=== PATIENT | female | born 1940 | race Caucasian/White ===

== ENCOUNTER 2018-06-23 15:24 | Inpatient (IN) | payer OTHER ==
[2018-06-23] MEDS ORDERED: PIPERACILLIN/TAZOB 4.5 GM 4.5 GM in DEXTROSE 5%-WATER 100 ML IVPB ONE (15:52)
[2018-06-23] MEDS ORDERED: SODIUM CHLORIDE 1,000 ML IV STA ×2 (15:52→16:43)
[2018-06-23] MEDS ORDERED: ACETAMINOPHEN 1000 MG/100 ML VIAL (NON FORMULARY) IVPB ONE (15:52)
[2018-06-23] MEDS ORDERED: VANCOMYCIN 1,000 MG in DEXTROSE 5%-WATER - 250 ML IVPB ONE (15:52)
[2018-06-23 16:22] LABS: BASO % 0.4 % (0-2.0); EOS % 0.1 % (0-4.5); HEMOGLOBIN 13.4 GM/dL (10.7-15.3); LYMPH % 12.5 % (8-40); MCH 30.1 pg (25.7-33.7); MEAN CELL VOLUME 94.1 fl (80-96); MEAN PLT VOLUME 12.7 fl (7.5-11.1); MONO % 2.4 % (3.8-10.2); NEUT % 84.6 % (42.8-82.8); PLATELET COUNT 96 K/MM3 (134-434); RBC 4.47 M/mm3 (3.60-5.2); RDW 16.4 % (11.6-15.6); WHITE BLOOD COUNT 29.5 K/mm3 (4.0-10.0)
--- NOTE | 2018-06-23 16:24 | PDOC ---
History of Present Illness - General Chief Complaint: Respiratory Distress Stated Complaint: Respiratory DISTRESS Time Seen by Provider: 06/23/18 15:50 - History of Present Illness Initial Comments: 77yo F with history of HTN, dementia, angina, previous UTIs and PNA presenting from [facility] with less responsiveness. Patient is nonverbal at baseline but has becoming progressively less responsive over the past three or four days. [facility] reports that the patient has had abnormal vitals with a fever, elevated RR, and elevated BP. Patient brought in by EMS. She is unable to provide any history. Family members are on their way. Past History - Past Medical History Allergies/Adverse Reactions: Allergies Allergy/AdvReac Type Severity Reaction Status Date / Time lisinopril [From Prinivil] Allergy Mild Hives Verified 06/23/18 15:59 Home Medications: Ambulatory Orders Clonazepam [Klonopin] 0.5 mg PO BID 07/24/12 Hydrochlorothiazide [Hctz] 50 mg PO DAILY 07/24/12 Metoprolol Succinate [Toprol XL] 50 mg PO DAILY 07/24/12 Ranolazine [Ranexa] 500 mg PO DAILY 07/24/12 Rosuvastatin Calcium [Crestor] 10 mg PO HS 07/24/12 Benztropine Mesylate [Cogentin] 2 mg PO BID 08/12/13 Tramadol HCl [Tramadol HCl ER] 100 mg PO TID 08/12/13 Cardiac Disorders: Yes (angia, prinzmetal disease,) COPD: No Diabetes: No HTN: Yes Hypercholesterolemia: Yes - Surgical History Cardiac Surgery: Yes Cholecystectomy: Yes - Immunization History Td Vaccination: Yes Immunization Up to Date: Yes - Suicide/Smoking/Psychosocial Hx Smoking Status: No Smoking History: Unknown if ever smoked Years of Tobacco Use: 20 Number of Cigarettes Smoked Daily: 0 If you are a former smoker, when did you quit?: 35 years ago Cigars Per Day: 0 Hx Alcohol Use: No Drug/Substance Use Hx: No Substance Use Type: None Review of Systems - Review of Systems Able to Perform ROS?: No *Physical Exam - Vital Signs Last Vital Signs Temp Pulse Resp BP Pulse Ox 104.7 F H 40 L 34 H 161/109 H 95 06/23/18 15:59 06/23/18 15:59 06/23/18 15:59 06/23/18 15:59 06/23/18 15:59 - Physical Exam Comments: General: Cachectic, non-responsive Head: No signs of trauma ENT: Dry mucus membranes Lungs: Tachypnic, labored breathing with use of accessory muscles Cardio: Regular rhythm, S1 and S2 present Abdomen: Soft, nondistended. Extremities: Distal pulses present SKIN: Skin tenting, pallor Moderate Sedation - Procedure Monitoring Vital Signs: Procedure Monitoring Vital Signs Temperature 104.7 F H 06/23/18 15:59 Pulse Rate 40 L 06/23/18 15:59 Respiratory Rate 34 H 06/23/18 15:59 Blood Pressure 161/109 H 06/23/18 15:59 O2 Sat by Pulse Oximetry (%) 95 06/23/18 15:59 ED Treatment Course - LABORATORY CBC & Chemistry Diagram: 06/24/18 05:15 06/24/18 05:15 - RADIOLOGY Radiology Studies Ordered: Category Date Time Status CHEST X-RAY PORTABLE* [RAD] Stat Radiology 06/23/18 15:51 Ordered - Medications Given in the ED: ED Medications Discontinued Medications Generic Name Dose Route Start Last Admin Trade Name Freq PRN Reason Stop Dose Admin Acetaminophen 1,000 mg 06/23/18 15:52 06/23/18 16:13 Ofirmev Injection - IVPB 06/23/18 15:53 1,000 mg ONCE ONE Administration Medical Decision Making - Medical Decision Making 77yo F with history of HTN, dementia, angina, previous UTIs and PNA presenting from [facility] with less responsiveness. -Septic workup, source likely UTI due to cloudy urine -Vanc/Zosyn to cover broadly -1g Ofirmev, 2L NS 06/23/18 16:23 Patient's son, Anoop Anne, is medical proxy and power of employee benefits attorney. Extensive EOL discussion with him and other family member at the bedside. Decision to make patient DNR/DNI EKG: rate 41, QTc 402, NSR, LAD, no ST d/e 06/23/18 16:44 Dr. Mariano spoke with ICU who will come evaluate the patient. Discussed case with [employer] Angela who accepted patient for admission under Dr. Wolfe. 06/23/18 17:27 *DC/Admit/Observation/Transfer Diagnosis at time of Disposition: Sepsis - Discharge Dispostion Condition at time of disposition: Guarded Decision to Admit order: Yes - Referrals - Patient Instructions - Post Discharge Activity
[2018-06-23] MEDS ORDERED: VANCOMYCIN 1 GRAM (PRE-DOCKED) 1,000 MG/250 ML BAG IVPB ONE (16:44)
[2018-06-23] MEDS ORDERED: PIPERACILLIN/TAZOB 3.375 GM 3.375 GM/50 ML BAG IVPB ONE (16:44)
[2018-06-23 16:57] LABS: ALBUMIN 3.4 g/dl (3.4-5.0); ALK PHOS 49 U/L (45-117); ANION GAP 18 MMOL/L (8-16); BILIRUBIN,TOTAL 1.6 mg/dL (0.2-1); CALCIUM 8.4 mg/dL (8.5-10.1); CHLORIDE 128 mmol/L (98-107); CO2 18 mmol/L (21-32); CREATININE 5.5 mg/dL (0.55-1.3); GLUCOSE,RANDOM 143 mg/dL (74-106); POTASSIUM 4.2 mmol/L (3.5-5.1); SGOT/AST 217 U/L (15-37); SGPT/ALT 109 U/L (13-61); TOT PROT 7.2 g/dl (6.4-8.2)
[2018-06-23 16:59] LABS: BLOOD UREA NITROGEN 113 mg/dL (7-18); SODIUM 164 mmol/L (136-145)
--- NOTE | 2018-06-23 17:38 | PDOC ---
Attending Attestation - Resident Resident Name: Nan Finley - ED Attending Attestation I have performed the following: I have examined & evaluated the patient, The case was reviewed & discussed with the resident, I agree w/resident's findings & plan, Exceptions are as noted - Critical Care Time Total Critical Care Time: 35 Critical Care Statement: The care of this patient involved high complexity decision making to prevent further life threatening deterioration of the patient 's condition and/or to evaluate & treat vital organ system(s) failure or risk of failure. - Medical Decision Making 06/23/18 17:38 A portion of this note was documented by scribe services under my direction. I have reviewed the details of the note, within reason, and agree with the documentation with the following case summary and management plan written by me. Patient treated in the ED. Nursing notes are reviewed and incorporated into the medical decision-making. Vital signs reviewed. Peripheral IV access obtained by the nurse, laboratory studies are drawn and sent, reviewed and interpreted by myself. Vital Signs Temp Pulse Resp BP Pulse Ox 104.7 F H 40 L 34 H 161/109 H 95 06/23/18 15:59 06/23/18 15:59 06/23/18 15:59 06/23/18 15:59 06/23/18 15:59 77-year-old female with past medical history Parkinson's disease, hypertension, hyperlipidemia, seizures, dementia, pneumonia, urinary tract infection, acid reflux, bedbound and nonverbal at baseline brought in by EMS for 105 degrees fever. The patient lives at [facility]. The family noted that in the last several days that she appeared more tired than usual. Noted today, that she was hypoxic to 78% and in respiratory distress with fever. Pt was seen by me immediately. Noted to have a fever and appeared toxic and ill. The pt's HR was in 40s, and pacer pads were placed on. Sepsis protocol initiated and empiric IV vanc and zosyn was ordered. I suspect the patient was having severe sepsis. Chest xray reviewed by me, pending official radiology read. Left sided infiltrate. CBC, BMP 06/23/18 16:10 06/23/18 16:10 CMP Sodium 164 mmol/L (136-145) H* 06/23/18 16:10 Potassium 4.2 mmol/L (3.5-5.1) 06/23/18 16:10 Chloride 128 mmol/L (98-107) H 06/23/18 16:10 Carbon Dioxide 18 mmol/L (21-32) L 06/23/18 16:10 Anion Gap 18 MMOL/L (8-16) H 06/23/18 16:10 BUN 113 mg/dL (7-18) H* 06/23/18 16:10 Creatinine 5.5 mg/dL (0.55-1.3) H 06/23/18 16:10 Creat Clearance w eGFR 7.54 (>60) 06/23/18 16:10 Random Glucose 143 mg/dL (74-106) H 06/23/18 16:10 Calcium 8.4 mg/dL (8.5-10.1) L 06/23/18 16:10 Total Bilirubin 1.6 mg/dL (0.2-1) H 06/23/18 16:10 AST 217 U/L (15-37) H 06/23/18 16:10 ALT 109 U/L (13-61) H 06/23/18 16:10 Alkaline Phosphatase 49 U/L (45-117) 06/23/18 16:10 Total Protein 7.2 g/dl (6.4-8.2) 06/23/18 16:10 Albumin 3.4 g/dl (3.4-5.0) 06/23/18 16:10 Urine Test Results Urine Color Rocio 06/23/18 17:55 Urine Appearance Slcloudy 06/23/18 17:55 Urine pH 5.0 (5.0-8.0) 06/23/18 17:55 Ur Specific [place] 1.021 (1.010-1.035) 06/23/18 17:55 Urine Protein 1+ (NEGATIVE) H 06/23/18 17:55 Urine Glucose (UA) Negative (NEGATIVE) 06/23/18 17:55 Urine Ketones Trace (NEGATIVE) H 06/23/18 17:55 Urine Blood Negative (NEGATIVE) 06/23/18 17:55 Urine Nitrite Negative (NEGATIVE) 06/23/18 17:55 Urine Bilirubin Negative (<2.0 mg/dL) 06/23/18 17:55 Ur Leukocyte Esterase Negative (NEGATIVE) 06/23/18 17:55 Pt given IV tylenol, IVF and vanc/zosyn and appears more comfortable. However, pt is with hypernatremia, acute renal failure, leukocytosis, and elevated AG. Pt's prognosis is guarded and discussed with pt's son who is HCP (Anoop) who wants patient to be DNR/DNI and no heoric measures. Case discussed with ICU. Pt admitted to [facility]. <Mathew Mariano - Last Filed: 06/23/18 18:54> - HPI HPI: 06/23/18 18:49 The patient is a 77 year old female with a past medical history of parkinsons, HTN, HLD, seizures, depressive disorder, GERD, UTIs, prior pneumonias, and dementia who presents to the emergency department [facility] from [facility] for respiratory distress. As per EMS, patient was not responsive on scene and diaphoretic with an spo2 of 84% on 2 liters of oxygen. As per EMS, patient had a fever with tmax of 105 and was given suppository Tylenol around 11am today. Unable to obtain full history due to current clinical condition. 06/23/18 23:06 Health Care Proxy (Son)- Anoop phone # ([phone]) Alternate phone- ([phone]) - Physicial Exam PE: GENERAL: (+)Ill appearing. HEAD: No signs of trauma EYES: PERRLA, EOMI, sclera anicteric, conjunctiva clear ENT: (+)Dry mucous membranes Auricles normal inspection, hearing grossly normal, nares patent, oropharynx clear without exudates. NECK: Normal ROM, supple, no lymphadenopathy, JVD, or masses LUNGS: (+)tachypnic. Diminished breath sounds at bases. HEART: Regular rate and rhythm, normal S1 and S2, no murmurs, rubs or gallops ABDOMEN: Soft, nontender, normoactive bowel sounds. No guarding, no rebound. No masses EXTREMITIES: Normal range of motion, no edema. No clubbing or cyanosis. No cords, erythema, or tenderness NEUROLOGICAL: (+)Non verbal. SKIN: Warm, Dry, normal turgor, no rashes or lesions noted. <Lauren Kang - Last Filed: 06/23/18 23:07> Heart Score/ECG Review #1 ECG reviewed & interpreted by me at: 15:40 06/23/18 17:48 NSR 41, left axis deviation, premature PACS, no std/elvin, RBBB, T wave abnormality, consider lateral ischemia, QTC 402 msec <Mathew Mariano - Last Filed: 06/23/18 18:54> Attestations - Attestations Documentation prepared by Lauren Kang, acting as medical hospital sales for Mathew Mariano MD. <Lauren Kang - Last Filed: 06/23/18 23:07>
[2018-06-23 18:43] LABS: URINE APPEARANCE SLCLOUDY; URINE BILIRUBIN NEGATIVE (<2.0 mg/dL); URINE COLOR AMBER; URINE GLUCOSE (UA) NEGATIVE (NEGATIVE); URINE KETONE TRACE (NEGATIVE); URINE LEUK ESTERASE NEGATIVE (NEGATIVE); URINE NITRITE NEGATIVE (NEGATIVE); URINE PROTEIN 1+ (NEGATIVE)
[2018-06-23 18:58] LABS: EPI CELLS RARE /HPF (FEW); URINE BACTERIA RARE /hpf (NONE SEEN); URINE HYALINE CAST 1 /lpf; URINE MUCUS RARE; YEAST MODERATE
[2018-06-23] MEDS ORDERED: DEXTROSE 5%-WATER - 1,000 ML IV SCH ×2 (19:15→20:26)
[2018-06-23] MEDS ORDERED: SODIUM CHLORIDE 1,000 ML IV SCH (19:30)
[2018-06-23 20:05] LABS: INR 1.28 (0.83-1.09); PROTHROMBIN TIME (PATIENT) 15.1 SEC (9.7-13.0)
--- NOTE | 2018-06-23 20:06 | CONSULT ---
Consultation: Consult Service: Pulm/CCM CC: Fever and respiratory distress HPI: 77 yo fci F bedbound non-verbal h/o Parkinson's disease, HTN, HLD , seizure, UTI, PNA, dementia BIBEMS from [facility] for fever and tachypnea. Per son at bedside who last saw her last Saturday and she appeared lethargic, fatigued and minimally interactive, which was different from her baseline. At [facility], she was severely hypoxic to 78% and fever of 105 F. On arrival to ED, she's unresponsive and saturating at 82% on 2L NC. She was received 2L NS boluses and still hypotensive. PMH: As above Family History: Non-contributory Social History: Non-contributory Allergies: Lisinopril Home Medications: Clonazepam [Klonopin] 0.5 mg PO BID 07/24/12 Hydrochlorothiazide [Hctz] 50 mg PO DAILY 07/24/12 Metoprolol Succinate [Toprol XL] 50 mg PO DAILY 07/24/12 Ranolazine [Ranexa] 500 mg PO DAILY 07/24/12 Rosuvastatin Calcium [Crestor] 10 mg PO HS 07/24/12 Benztropine Mesylate [Cogentin] 2 mg PO BID 08/12/13 Tramadol HCl [Tramadol HCl ER] 100 mg PO TID 08/12/13 Review of Systems: Unable to obtain due to mental status Physical Examination Temp Pulse Resp BP Pulse Ox 101.3 F H 66 22 H 79/51 L 96 06/23/18 18:46 06/23/18 18:46 06/23/18 18:46 06/23/18 18:46 06/23/18 18:46 General: In severe distress, contracted, non-verbal, thin appearance. Cardiovascular: irregularly irregular, S1 and S2 normal, no m/g/r. Pulses 2+ equal on both sides. Lungs: Diffusely decreased breath sounds bilateral. No crackles/rhonchi/ wheezes. Abdomen: Normoactive bowel sounds. Grimaces upon deep palpations in all quadrants Extremeties: No bilateral cyanosis, clubbing or edema. CBCD WBC 29.5 K/mm3 (4.0-10.0) H 06/23/18 16:10 RBC 4.47 M/mm3 (3.60-5.2) 06/23/18 16:10 Hgb 13.4 GM/dL (10.7-15.3) 06/23/18 16:10 Hct 42.0 % (32.4-45.2) 06/23/18 16:10 MCV 94.1 fl (80-96) 06/23/18 16:10 MCHC 32.0 g/dl (32.0-36.0) 06/23/18 16:10 RDW 16.4 % (11.6-15.6) H 06/23/18 16:10 Plt Count 96 K/MM3 (134-434) L D 06/23/18 16:10 MPV 12.7 fl (7.5-11.1) H D 06/23/18 16:10 CMP Sodium 164 mmol/L (136-145) H* 06/23/18 16:10 Potassium 4.2 mmol/L (3.5-5.1) 06/23/18 16:10 Chloride 128 mmol/L (98-107) H 06/23/18 16:10 Carbon Dioxide 18 mmol/L (21-32) L 06/23/18 16:10 Anion Gap 18 MMOL/L (8-16) H 06/23/18 16:10 BUN 113 mg/dL (7-18) H* 06/23/18 16:10 Creatinine 5.5 mg/dL (0.55-1.3) H 06/23/18 16:10 Creat Clearance w eGFR 7.54 (>60) 06/23/18 16:10 Calcium 8.4 mg/dL (8.5-10.1) L 06/23/18 16:10 Total Bilirubin 1.6 mg/dL (0.2-1) H 06/23/18 16:10 AST 217 U/L (15-37) H 06/23/18 16:10 ALT 109 U/L (13-61) H 06/23/18 16:10 Alkaline Phosphatase 49 U/L (45-117) 06/23/18 16:10 Total Protein 7.2 g/dl (6.4-8.2) 06/23/18 16:10 Albumin 3.4 g/dl (3.4-5.0) 06/23/18 16:10 Urine Test Results Urine Color Rocio 06/23/18 17:55 Urine Appearance Slcloudy 06/23/18 17:55 Urine pH 5.0 (5.0-8.0) 06/23/18 17:55 Ur Specific [place] 1.021 (1.010-1.035) 06/23/18 17:55 Urine Protein 1+ (NEGATIVE) H 06/23/18 17:55 Urine Glucose (UA) Negative (NEGATIVE) 06/23/18 17:55 Urine Ketones Trace (NEGATIVE) H 06/23/18 17:55 Urine Blood Negative (NEGATIVE) 06/23/18 17:55 Urine Nitrite Negative (NEGATIVE) 06/23/18 17:55 Urine Bilirubin Negative (<2.0 mg/dL) 06/23/18 17:55 Ur Leukocyte Esterase Negative (NEGATIVE) 06/23/18 17:55 Ur Epithelial Cells Rare /HPF (FEW) 06/23/18 17:55 Urine Bacteria Rare /hpf (NONE SEEN) 06/23/18 17:55 Urine Mucus Rare 06/23/18 17:55 Imaging: CXR: cannot r/o infiltrates EKG: NSR 40bp RBBB, PACS, QTc 402 A/P: 77 yo F admitted to ICU for septic shock. ID Septic shock: 1. admit to ICU; adequate initial fluid resus. (2L NS), will switch the fluid to D5W due to hypernatremia; trend lactate 2. locate infectious source; ua unremarkable, suspecting aspiration PNA due to underlying parkinson's, will obtain cultures and CT chest/abd/pel 3. Abx; Vanc+zosyn in ED, cont. such regiment for now 4. Vasopressor support; IJ triple lumen 06/23 + levophed, ABG to assess acid- base CV Elevated troponin 1. Likely demand ischemia; trend trops, repeat EKG Renal Hypernatremia 1. likely hypodipsia from sepsis/poor mentation 2. Free water deficit 4.2L, avoid hypertonic fluid; (levophed in) D5W at 70cc/hr Prophylaxis: 1. SCDs Diet: 1. NPO for now Code status: DNR/DNI References: [facility] investigators and the [facility] Clinical trials group. Goal directed resuscitation for patients with early septic shock. [facility] 2014. [id number] Collin Batista MD PGY3 Visit type - Emergency Visit Emergency Visit: Yes ED Registration Date: 06/23/18 Care time: The patient presented to the Emergency Department on the above date and was hospitalized for further evaluation of their emergent condition. - New Patient This patient is new to me today: Yes Date on this admission: 06/24/18 - Critical Care Critical Care patient: Yes Total Critical Care Time (in minutes): 40 Critical Care Statement: The care of this patient involved high complexity decision making to prevent further life threatening deterioration of the patient 's condition and/or to evaluate & treat vital organ system(s) failure or risk of failure.
[2018-06-23 20:07] LABS: ACTIVATED PTT 21.9 SECONDS (25.2-36.5)
--- NOTE | 2018-06-23 20:29 | HP ---
CHIEF COMPLAINT: Respiratory distress PCP: Dr. Kennedy Fuller Harness Cleaner: Dr. Walker HISTORY OF PRESENT ILLNESS: 77 year old female with a PMH significant for Parkinson's disease, HTN, HLD presented to the ED from [facility] in respiratory distress and decreased responsiveness. Patient is non-verbal and immobile at baseline. Son Anoop provided history. long term staff reports that patient has been more lethargic over the past several days had had elevated temperature at the long term. Patient was started on IV antibiotics a few days ago. Today, patient was hypoxic (EMS measured spo2 of 84% on 2L). Upon admission to the ED, she was found to have a fever of 104.7, BP of 80/50, R 34. Labs notable for WBC of 29.5, BUN/Cr 113/5.5, Na 164, AST/ALT 217/109, UA +WBC, and CXR with possible infiltrates. She was given a dose of Vancomycin and Zosyn, IV apap, 3L NS. Temperature went down to 101.3, spo2 96% on non- rebreather. Patient has been admitted to ICU, patient is DNI/DNR. Patient's son wants goal of care to be comfort and not try any "heroic" measures. Recent Travel: No PAST MEDICAL HISTORY: Parkinson's disease HTN HLD Dementia PAST SURGICAL HISTORY: Hip replacement Social History: Smoking: Former, quit 35 years ago Alcohol: Rarely Drugs: Denies Family History: Mother: Cardiac problems, dementia Father: CVA, emphysema Brother: Cardiac problems, cancer, DM Brother: A-fib, hypothyroidism Allergies lisinopril [From Prinivil] Allergy (Mild, Verified 06/23/18 15:59) Hives HOME MEDICATIONS: Home Medications Medication Instructions Recorded Clonazepam [Klonopin] 0.5 mg PO BID 07/24/12 Hydrochlorothiazide [Hctz] 50 mg PO DAILY 07/24/12 Metoprolol Succinate [Toprol XL] 50 mg PO DAILY 07/24/12 Ranolazine [Ranexa] 500 mg PO DAILY 07/24/12 Rosuvastatin Calcium [Crestor] 10 mg PO HS 07/24/12 Benztropine Mesylate [Cogentin] 2 mg PO BID 08/12/13 Tramadol HCl [Tramadol HCl ER] 100 mg PO TID 08/12/13 REVIEW OF SYSTEMS CONSTITUTIONAL: (+) generalized weakness, malaise, loss of appetite, Lost approximately 20-45 lbs in the past year Absent: fever, chills, diaphoresis, , HEENT: Absent: rhinorrhea, nasal congestion, throat pain, throat swelling, difficulty swallowing, mouth swelling, ear pain, eye pain, visual changes CARDIOVASCULAR: Absent: chest pain, syncope, palpitations, irregular heart rate, lightheadedness , peripheral edema RESPIRATORY: (+) shortness of breath, wheezing Absent: cough, dyspnea with exertion, orthopnea, stridor, hemoptysis GASTROINTESTINAL: Absent: abdominal pain, abdominal distension, nausea, vomiting, diarrhea, constipation, melena, hematochezia GENITOURINARY: Absent: dysuria, frequency, urgency, hesitancy, hematuria, flank pain, genital pain MUSCULOSKELETAL: (+) Contracture left hand Absent: myalgia, arthralgia, joint swelling, back pain, neck pain SKIN: Absent: rash, itching, pallor HEMATOLOGIC/IMMUNOLOGIC: Absent: easy bleeding, easy bruising, lymphadenopathy, frequent infections ENDOCRINE: Absent: unexplained weight gain, unexplained weight loss, heat intolerance, cold intolerance NEUROLOGIC: Absent: headache, focal weakness or paresthesias, dizziness, unsteady gait, seizure, mental status changes, bladder or bowel incontinence PSYCHIATRIC: (+) anxiety Absent: depression, suicidal or homicidal ideation, hallucinations. PHYSICAL EXAMINATION Vital Signs - 24 hr 06/23/18 06/23/18 06/23/18 15:45 15:59 16:30 Temperature 104.7 F H Pulse Rate 40 L Pulse Rate [ 70 Apical] Respiratory 34 H 20 Rate Blood Pressure 161/109 H Blood Pressure 80/50 L [Left Arm] O2 Sat by Pulse 99 95 99 Oximetry (%) 06/23/18 06/23/18 06/23/18 17:00 17:45 18:46 Temperature 101.3 F H Pulse Rate Pulse Rate [ 78 74 66 Apical] Respiratory 18 20 22 H Rate Blood Pressure Blood Pressure 78/45 L 82/53 L 79/51 L [Left Arm] O2 Sat by Pulse 99 99 96 Oximetry (%) GENERAL: Elderly, frail, thin, agonal breathing, unable to participate in exam HEAD: Normal with no signs of trauma. EYES: Pupils equal, round and reactive to light EARS, NOSE, THROAT: Moist mucous membranes. NECK: Normal range of motion, supple without lymphadenopathy, JVD, or masses. LUNGS: Agonal breath sounds, tachypnic, use of accesory muscles HEART: Regular rate and rhythm, normal S1 and S2 without murmur, rub or gallop. ABDOMEN: Soft, nontender, not distended, normoactive bowel sounds, no guarding, no rebound, no masses. No hepatomegaly or splenomegaly. MUSCULOSKELETAL: Normal range of motion at all joints. No bony deformities or tenderness. No CVA tenderness. UPPER EXTREMITIES: 2+ pulses, warm, well-perfused. No cyanosis. No clubbing. No peripheral edema. LOWER EXTREMITIES: Scattered purpura left anterior villavicencio, 2+ pulses, warm, well- perfused. No calf tenderness. No peripheral edema. SKIN: Warm, dry, normal turgor, no rashes or lesions noted, normal capillary refill. Laboratory Results - last 24 hr 06/23/18 06/23/18 06/23/18 16:10 16:10 17:55 WBC 29.5 H RBC 4.47 Hgb 13.4 Hct 42.0 MCV 94.1 MCH 30.1 MCHC 32.0 RDW 16.4 H Plt Count 96 L D MPV 12.7 H D Absolute Neuts (auto) 25.0 H Neutrophils % 84.6 H Lymphocytes % 12.5 Monocytes % 2.4 L Eosinophils % 0.1 D Basophils % 0.4 Nucleated RBC % 0 PT with INR INR PTT (Actin FS) Sodium 164 H* Potassium 4.2 Chloride 128 H Carbon Dioxide 18 L Anion Gap 18 H BUN 113 H* Creatinine 5.5 H Creat Clearance w eGFR 7.54 Random Glucose 143 H Calcium 8.4 L Total Bilirubin 1.6 H AST 217 H ALT 109 H Alkaline Phosphatase 49 Total Protein 7.2 Albumin 3.4 Urine Color Rocio Urine Appearance Slcloudy Urine pH 5.0 Ur Specific [place] 1.021 Urine Protein 1+ H Urine Glucose (UA) Negative Urine Ketones Trace H Urine Blood Negative Urine Nitrite Negative Urine Bilirubin Negative Urine Urobilinogen 2.0 H Ur Leukocyte Esterase Negative Urine WBC (Auto) 11 Urine RBC (Auto) 4 Ur Epithelial Cells Rare Urine Bacteria Rare Hyaline Casts 1 Urine Mucus Rare Urine Yeast Moderate 06/23/18 19:00 WBC RBC Hgb Hct MCV MCH MCHC RDW Plt Count MPV Absolute Neuts (auto) Neutrophils % Lymphocytes % Monocytes % Eosinophils % Basophils % Nucleated RBC % PT with INR 15.10 H INR 1.28 H PTT (Actin FS) 21.9 L Sodium Potassium Chloride Carbon Dioxide Anion Gap BUN Creatinine Creat Clearance w eGFR Random Glucose Calcium Total Bilirubin AST ALT Alkaline Phosphatase Total Protein Albumin Urine Color Urine Appearance Urine pH Ur Specific [place] Urine Protein Urine Glucose (UA) Urine Ketones Urine Blood Urine Nitrite Urine Bilirubin Urine Urobilinogen Ur Leukocyte Esterase Urine WBC (Auto) Urine RBC (Auto) Ur Epithelial Cells Urine Bacteria Hyaline Casts Urine Mucus Urine Yeast ASSESSMENT/PLAN: 77 year old female with a PMH significant for Parkinson's disease, HTN, HLD presented to the ED from [facility] in respiratory distress. In the ED, she was found to have a fever of 104.7, WBC of 29.5, UA +WBC, and CXR with possible infiltrates. She was admitted to the ICU for treatment of sepsis. Sepsis secondary to possible PNA and or UTI - Cloudy urine UA + 11 WBC - CXR shows compressive atelectasis in LLL and minimal atelectatic changes i nRLL, cannot r/o superimposed infiltrates - WBC 29.5, T 104.7 - Given dose of Vancomycin and Zosyn in ED - Will give Zosyn renally dosed at 2.55 G until seen by ID - Lactic acid pending - Blood and urine cultures pending - ID consult ordered - Patient is DNR/DNI, healthcare proxy, son Anoop does not want any invasive interventions. Transaminitis - AST/ALT 217/109 - Hold statin - Monitor CMP Hypernatremia - Na 164 - IV fluids: D5 1/2 NS - Monitor BMP - Nephrology consult ordered Parkinson's disease - Continue Cogentin 2 mg PO BID - Neurologist Dr. Shelton DIXON - BUN/Cr 113/5.5 - IV fluids - Monitor BMP - Avoid nephrotoxic agents - Nephrology consult ordered HTN - Currently hypotensive - Hold home Metoprolol Succintate and HCTZ - Monitor BP HLD - Hold home Rosuvastatin d/t elevated LFTs Anxiety - Continue home Klonopin 0.5 mg PO BID FEN - D5 1/2 NS @100 cc/hr - Replete as needed - NPO until evaluated by ST to r/o dysphagia Disp: Patient requires further inpatient monitoring. DNR/DNI Visit type - Emergency Visit Emergency Visit: Yes ED Registration Date: 06/23/18 Care time: The patient presented to the Emergency Department on the above date and was hospitalized for further evaluation of their emergent condition. - New Patient This patient is new to me today: Yes Date on this admission: 06/23/18 - Critical Care Critical Care patient: Yes Total Critical Care Time (in minutes): 40 Critical Care Statement: The care of this patient involved high complexity decision making to prevent further life threatening deterioration of the patient 's condition and/or to evaluate & treat vital organ system(s) failure or risk of failure.
--- NOTE | 2018-06-23 21:08 | PDOC ---
*Physical Exam - Vital Signs Last Vital Signs Temp Pulse Resp BP Pulse Ox 101.3 F H 66 22 H 79/51 L 96 06/23/18 18:46 06/23/18 18:46 06/23/18 20:57 06/23/18 18:46 06/23/18 20:57 - Physical Exam Comments: 06/24/18 00:50 General Appearance: Nourished. In Apparent Distress HEENT: No Pharyngeal Erythema, Tonsillar Exudate, Tonsillar Erythema Neck: No Cervical Lymphadenopathy Respiratory/Chest: Lungs Clear, Normal Breath Sounds. No Crackles, Rales, Rhonchi, Wheezing Cardiovascular: Bradycardic Rate. No Murmur, Gallops, Rubs Gastrointestinal/Abdominal: Normal Bowel Sounds, Soft. No Guarding, Rebound, Tenderness Musculoskeletal: No CVA Tenderness Extremity: Normal Capillary Refill Integumentary: Normal Color, Dry, Warm Neurologic: Minimally responsive on exam. ED Treatment Course - LABORATORY CBC & Chemistry Diagram: 06/23/18 16:10 06/23/18 19:00 - ADDITIONAL ORDERS Additional order review: Laboratory Results 06/23/18 16:10 Sodium 164 H* Potassium 4.2 Chloride 128 H Carbon Dioxide 18 L Anion Gap 18 H BUN 113 H* Creatinine 5.5 H Creat Clearance w eGFR 7.54 Random Glucose 143 H Calcium 8.4 L Total Bilirubin 1.6 H AST 217 H ALT 109 H Alkaline Phosphatase 49 Total Protein 7.2 Albumin 3.4 06/23/18 16:10 RBC 4.47 MCV 94.1 MCHC 32.0 RDW 16.4 H MPV 12.7 H D Neutrophils % 84.6 H Lymphocytes % 12.5 Monocytes % 2.4 L Eosinophils % 0.1 D Basophils % 0.4 - Medications Given in the ED: ED Medications Discontinued Medications Generic Name Dose Route Start Last Admin Trade Name Freq PRN Reason Stop Dose Admin Acetaminophen 1,000 mg 06/23/18 15:52 06/23/18 16:13 Ofirmev Injection - IVPB 06/23/18 15:53 1,000 mg ONCE ONE Administration Sodium Chloride 1,000 mls @ 1,000 mls/hr 06/23/18 15:52 06/23/18 16:12 Normal Saline - IV 06/23/18 16:51 1,000 mls/hr ASDIR STA Administration Vancomycin HCl 1,000 mg/ 250 mls @ 166.667 mls/hr 06/23/18 15:52 06/23/18 16: 52 Dextrose IVPB 06/23/18 17:21 166.667 mls/hr ONCE ONE Administration Protocol Piperacillin Sod/Tazobactam 100 mls @ 200 mls/hr 06/23/18 15:52 06/23/18 16: 10 Sod 4.5 gm/ Dextrose IVPB 06/23/18 16:21 200 mls/hr ONCE ONE Administration Protocol Sodium Chloride 1,000 mls @ 1,000 mls/hr 06/23/18 16:43 06/23/18 17:52 Normal Saline - IV 06/23/18 17:42 1,000 mls/hr ASDIR STA Administration Dextrose 1,000 mls @ 83 mls/hr 06/23/18 19:15 06/23/18 19:42 D5w - IV 83 mls/hr ASDIR [facility] Administration Progress Note - Progress Note Progress Note: The patient is a 77 year old female with a complex medical history who presents for hypotension and altered mental status. The patient has an elevated wbc on lab results and is likely septic from an unknown source. The patient's HCP has opted to make the patient DNR/DNI. The patient is admitted to the ICU. Medical Decision Making - Medical Decision Making 06/24/18 00:53 The patient continues to remain hypotensive and bradycardic despite fluid resuscitation. We had a discussion the patient's HCP who has opted for central line placement and pressor use. We placed a right internal jugular central line successfully and have started the patient and a levophed drip with improvement in the patient's blood pressure. We will continue to closely monitor and reassess while here in the ED. *DC/Admit/Observation/Transfer Diagnosis at time of Disposition: Sepsis - Discharge Dispostion Condition at time of disposition: Guarded - Referrals - Patient Instructions - Post Discharge Activity Procedures - Central Line Central Line Lumen: triple Central Line Position: internal jugular (R) Anesthesia: 1% Lidocaine Amount of anesthesia (ccs): 3 Complications: none Post Central Line Insertion: sutured, good blood return, position confirmed w/ CXR
[2018-06-23 21:13] LABS: ANISOCYTOSIS 2+; MACROCYTOSIS 0; OVALOCYTE 1+; PLATELET ESTIMATE DECREASED; TEAR DROP CELLS 1+
[2018-06-23] MEDS ORDERED: NOREPINEPHRINE BITARTRATE 4 MG/4 ML ML IV ONE (21:44)
[2018-06-23] MEDS: PIPERACILLIN/TAZOB 2.25 GM 2.25 GM in DEXTROSE 5%-WATER - 50 ML IVPB SCH (22:00)
[2018-06-23] MEDS: NOREPINEPHRINE BITARTRATE 4,000 MCG in DEXTROSE 5%-WATER - 496 ML IV SCH (22:33)
[2018-06-23 23:16] LABS: ANION GAP 13 MMOL/L (8-16); CALCIUM 7.4 mg/dL (8.5-10.1); CHLORIDE 129 mmol/L (98-107); CO2 19 mmol/L (21-32); GLUCOSE,RANDOM 167 mg/dL (74-106); POTASSIUM 4.2 mmol/L (3.5-5.1)
[2018-06-23 23:20] LABS: BLOOD UREA NITROGEN 108 mg/dL (7-18); SODIUM 162 mmol/L (136-145)
[2018-06-24 00:53] VITALS: BMI 20.9
[2018-06-24] MEDS: HEPARIN NA (PORCINE) 5,000 UNITS/ML 1ML VIAL SQ SCH ×3 (00:57→21:36)
[2018-06-24] MEDS: BENZTROPINE MESYLATE 2 MG TABLET PO SCH ×3 (00:57→23:25)
[2018-06-24] MEDS: MUPIROCIN 2% TOPICAL OINTMENT FOR DECOLONIZATION NS SCH ×3 (00:57→21:36)
[2018-06-24] MEDS: clonazePAM 0.5 MG TABLET PO SCH ×3 (00:59→21:45)
[2018-06-24] MEDS: traMADol HCL 50 MG TABLET PO SCH ×4 (01:00→21:37)
[2018-06-24] MEDS: CHLORHEXIDINE GLUCONATE 4% CLEANSER FOR DECOLONIZATION TP SCH ×2 (01:00→21:45)
[2018-06-24] MEDS: RANOLAZINE E.R. 500 MG TABLET (FP) PO SCH ×3 (01:00→21:36)
[2018-06-24 02:25] LABS: ANION GAP 10 MMOL/L (8-16); CALCIUM 7.2 mg/dL (8.5-10.1); CHLORIDE 128 mmol/L (98-107); CO2 22 mmol/L (21-32); CREATININE 4.9 mg/dL (0.55-1.3); GLUCOSE,RANDOM 157 mg/dL (74-106); POTASSIUM 3.7 mmol/L (3.5-5.1); SODIUM 160 mmol/L (136-145)
[2018-06-24 02:28] LABS: BLOOD UREA NITROGEN 110 mg/dL (7-18)
[2018-06-24] MEDS: PIPERACILLIN/TAZOB 2.25 GM 2.25 GM in DEXTROSE 5%-WATER - 50 ML IVPB SCH ×2 (04:00→09:46)
[2018-06-24] MEDS ORDERED: PIPERACILLIN/TAZOBACTAM 2.25 GM VIAL IVPB ONE ×2 (04:43→09:20)
[2018-06-24] MEDS ORDERED: DEXTROSE 5%-WATER - 50 ML IVPB ONE ×2 (04:43→09:20)
[2018-06-24] MEDS ORDERED: NOREPINEPHRINE BITARTRATE 4 MG/4 ML ML IV ONE ×2 (05:38→13:36)
[2018-06-24 06:21] LABS: HEMATOCRIT 40.2 % (32.4-45.2); HEMOGLOBIN 12.5 GM/dL (10.7-15.3); MCH 29.1 pg (25.7-33.7); MCHC 31.1 g/dl (32.0-36.0); MEAN CELL VOLUME 93.6 fl (80-96); MEAN PLT VOLUME 12.7 fl (7.5-11.1); PLATELET COUNT 73 K/MM3 (134-434); RDW 15.3 % (11.6-15.6); WHITE BLOOD COUNT 24.3 K/mm3 (4.0-10.0)
[2018-06-24 07:24] LABS: ALBUMIN 2.8 g/dl (3.4-5.0); ALK PHOS 55 U/L (45-117); ANION GAP 9 MMOL/L (8-16); CALCIUM 7.2 mg/dL (8.5-10.1); CHLORIDE 126 mmol/L (98-107); CO2 22 mmol/L (21-32); GLUCOSE,RANDOM 145 mg/dL (74-106); POTASSIUM 3.9 mmol/L (3.5-5.1); SGOT/AST 437 U/L (15-37); SGPT/ALT 124 U/L (13-61); SODIUM 157 mmol/L (136-145); TOT PROT 6.1 g/dl (6.4-8.2)
[2018-06-24 09:18] LABS: BLOOD UREA NITROGEN 115 mg/dL (7-18)
--- NOTE | 2018-06-24 09:26 | PN ---
Progress Note, Physician - Current Medication List Current Medications: Active Medications Benztropine Mesylate (Cogentin -) 2 mg PO BID [facility] Last Admin: 06/24/18 00:57 Dose: Not Given Chlorhexidine Gluconate (Hibiclens For Decolonization -) 1 applic TP HS [facility] Last Admin: 06/24/18 01:00 Dose: Not Given Clonazepam (Klonopin -) 0.5 mg PO BID [facility] Last Admin: 06/24/18 00:59 Dose: Not Given Heparin Sodium (Porcine) (Heparin -) 5,000 unit SQ BID [facility] Last Admin: 06/24/18 00:57 Dose: Not Given Dextrose (D5w -) 1,000 mls @ 100 mls/hr IV ASDIR [facility] Last Admin: 06/23/18 20:35 Dose: 100 mls/hr Piperacillin Sod/Tazobactam (Sod 2.25 gm/ Dextrose) 50 mls @ 100 mls/hr IVPB Q6H-IV [facility]; Protocol Piperacillin Sod/Tazobactam (Sod 2.25 gm/ Dextrose) 50 mls @ 100 mls/hr IVPB Q6H [facility] Stop: 06/24/18 10:29 Last Admin: 06/24/18 04:00 Dose: 100 mls/hr Norepinephrine Bitartrate 4, (000 mcg/ Dextrose) 500 mls @ 37.5 mls/hr IV TITR [facility]; Protocol Last Titration: 06/24/18 00:00 Dose: 10 mcg/min, 75 mls/hr Mupirocin (Bactroban Ointment (For Decolonization) -) 1 applic NS BID [facility] Stop: 06/28/18 21:59 Last Admin: 06/24/18 00:57 Dose: Not Given Ranolazine (Ranexa -) 500 mg PO BID [facility] Last Admin: 06/24/18 01:00 Dose: Not Given Tramadol HCl (Ultram -) 100 mg PO TID [facility] Last Admin: 06/24/18 05:54 Dose: Not Given - Objective Vital Signs: Vital Signs Temperature 100 F H 06/24/18 05:55 Pulse Rate 102 H 06/24/18 08:38 Respiratory Rate 19 06/24/18 08:42 Blood Pressure 99/72 06/24/18 08:38 O2 Sat by Pulse Oximetry (%) 96 06/24/18 08:42 Labs: CBC, BMP 06/24/18 05:15 06/24/18 05:15 INR, PTT INR 1.28 (0.83-1.09) H 06/23/18 19:00 Problem List - Problems (1) Sepsis Assessment/Plan: - WBC 29.5, T 104.7 - Zosyn--Id consult - Blood and urine cultures pending Code(s): A41.9 - SEPSIS, UNSPECIFIED ORGANISM (2) Hypernatremia Assessment/Plan: - Na 164 - IV fluids: D5 1/2 NS - Monitor BMP - Nephrology consult ordered Code(s): E87.0 - HYPEROSMOLALITY AND HYPERNATREMIA (3) DIXON (acute kidney injury) Assessment/Plan: - BUN/Cr 113/5.5 - IV fluids - Monitor BMP - Avoid nephrotoxic agents - Nephrology consult ordered Code(s): N17.9 - ACUTE KIDNEY FAILURE, UNSPECIFIED (4) Parkinson disease Assessment/Plan: - Continue Cogentin 2 mg PO BID Code(s): G20 - PARKINSON'S DISEASE (5) Abnormal LFTs Assessment/Plan: - AST/ALT 217/109 - Hold statin - Monitor CMP Code(s): R94.5 - ABNORMAL RESULTS OF LIVER FUNCTION STUDIES (6) Elevated troponin Assessment/Plan: due sepsis ekg cardio Code(s): R74.8 - ABNORMAL LEVELS OF OTHER SERUM ENZYMES
--- NOTE | 2018-06-24 09:41 | CON.CARD ---
Consult Consult Specialty:: Cardiology Referred by:: Dr. Carty: Ms. Almonte is an office patient Reason for Consultation:: + TnI - History of Present Illness Chief Complaint: Sepsis History of Present Illness: History is obtained from chart. 77yo F with history of HTN, dementia, Advanced Parkinson's dz, CAD with remote hx PCI LAD, previous UTIs and PNA presenting from [facility] with less responsiveness. Patient is nonverbal at baseline but has becoming progressively less responsive over the past three or four days. [facility] reports that the patient has had abnormal vitals with a fever, elevated RR, and elevated BP. Patient brought in by EMS. She is unable to provide any history. Upon admission to the ED, she was found to have a fever of 104.7, BP of 80/50, R 34. Labs notable for WBC of 29.5, BUN/Cr 113/5.5, Na 164, AST/ALT 217/109, UA +WBC, and CXR with possible infiltrates. She was given a dose of Vancomycin and Zosyn, IV apap, 3L NS. Temperature went down to 101.3, spo2 96% on non- rebreather. Patient has been admitted to ICU, patient is DNI/DNR. Patient's son wants goal of care to be comfort and not try any "heroic" measures. She is on pressors in the ICU, in renal failure and with elevated TnI. 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 Cardio/Vascular: Yes: CAD, HTN - Past Surgical History Additional Surgical History: Prior PCI - Alcohol/Substance Use Hx Alcohol Use: No - Smoking History Smoking history: Unknown if ever smoked Aproximately how many cigarettes per day: 0 If you are a former smoker, when did you quit?: 35 years ago - Social History Usual Living Arrangement: Jail Home Medications - Allergies Allergies/Adverse Reactions: Allergies Allergy/AdvReac Type Severity Reaction Status Date / Time lisinopril [From Prinivil] Allergy Mild Hives Verified 06/23/18 15:59 - Home Medications Home Medications: Ambulatory Orders Clonazepam [Klonopin] 0.5 mg PO BID 07/24/12 Hydrochlorothiazide [Hctz] 50 mg PO DAILY 07/24/12 Metoprolol Succinate [Toprol XL] 50 mg PO DAILY 07/24/12 Ranolazine [Ranexa] 500 mg PO DAILY 07/24/12 Rosuvastatin Calcium [Crestor] 10 mg PO HS 07/24/12 Benztropine Mesylate [Cogentin] 2 mg PO BID 08/12/13 Tramadol HCl [Tramadol HCl ER] 100 mg PO TID 08/12/13 Family Disease History - Family Disease History Family History: Unremarkable (non-contributory to this presentation) Review of Systems Unable to obtain ROS, reason: Clinical condition Findings/Remarks: see HPI - Review of Systems Neurological: reports: Change in LOC - Risk Factors Known Risk Factors: Yes: Other (known CAD) Vital Signs: Vital Signs Temperature 100 F H 06/24/18 05:55 Pulse Rate 102 H 06/24/18 08:38 Respiratory Rate 19 06/24/18 08:42 Blood Pressure 99/72 06/24/18 08:38 O2 Sat by Pulse Oximetry (%) 96 06/24/18 08:42 Constitutional: Yes: Calm Eyes: Yes: Conjunctiva Clear HENT: Yes: Other (central line: R. IJ) Respiratory: Yes: Other (= breath sounds bilaterally- no rales or wheezing.) Gastrointestinal: Yes: Soft Cardiovascular: Yes: Regular Rate and Rhythm (No murmurs, rubs , gall) JVD: No Carotid Bruit: No Heart Sounds: Yes: S1, S2 (RRR. No murmurs) Edema: No Neurological: Yes: Lethargy - Other Data Labs, Other Data: CBC, BMP 06/24/18 05:15 06/24/18 05:15 INR, PTT INR 1.28 (0.83-1.09) H 06/23/18 19:00 Troponin, BNP 06/23/18 06/24/18 06/24/18 19:00 00:54 05:15 Troponin I 2.42 H* 4.07 H* 4.59 H* Troponin, BNP 06/23/18 06/24/18 06/24/18 19:00 00:54 05:15 Troponin I 2.42 H* 4.07 H* 4.59 H* Tremor artifact. Undetermined rhythm. No ST elevation. Echo: Pending Imaging - Results Chest X-ray: Image Reviewed EKG: Image Reviewed Problem List - Problems (1) Sepsis Code(s): A41.9 - SEPSIS, UNSPECIFIED ORGANISM Qualifiers: Sepsis type: sepsis due to unspecified organism Qualified Code(s): A41.9 - Sepsis, unspecified organism (2) DIXON (acute kidney injury) Code(s): N17.9 - ACUTE KIDNEY FAILURE, UNSPECIFIED (3) Elevated troponin Code(s): R74.8 - ABNORMAL LEVELS OF OTHER SERUM ENZYMES (4) Hypernatremia Code(s): E87.0 - HYPEROSMOLALITY AND HYPERNATREMIA (5) Coronary artery disease Code(s): I25.10 - ATHSCL HEART DISEASE OF [place] CORONARY ARTERY W/O ANG PCTRS (6) DNR (do not resuscitate) Code(s): Z66 - DO NOT RESUSCITATE Assessment/Plan IMP: Severe sepsis, septic shock with multisystem organ failure Advanced Parkinson's CAD w/ prior PCI Elevated TnI: secondary to demand ischemia in setting hypotension due to severe septic shock DNR/DNI REC: 1. Pressors to maintain MAP 60mmHg 2. Broad spectrum abx as per Critical Care Team: now on Vanc and Zosyn; follow cultures 3. DVT and GI prophylaxis 4. Add ASA 81mg daily via NGT or per rectum. Would not begin Heparin gtts or Plavix in setting of low platelets (sepsis) 5. Echo for EF assessment. 6. Supportive measures for Rx of sepsis and comfort as per family wishes. Thank you.
[2018-06-24] MEDS ORDERED: RANOLAZINE E.R. 500 MG TABLET (FP) PO SCH (10:00)
[2018-06-24] MEDS: ASPIRIN 300 MG SUPP.RECT PR SCH (10:57)
--- NOTE | 2018-06-24 10:57 | CONSULT ---
Admitting History and Physical - Primary Care Physician PCP: Nan Marquez - Admission History of Present Illness: 77 year old female with a PMH significant for Parkinson's disease, HTN, HLD admitted from [facility] in respiratory distress, fever of 104.7, WBC of 29.5 , UA +WBC, and CXR with possible infiltrates, with dx of Sepsis secondary to possible PNA and or UTI. Per chart, pt was on regular diet, thin liquids, h/o prior uti's/PNA's, cachetic , contracted, decubitis,Dementia, PD,non communicable? baseline This is my first consult with this pt. 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 Follows no commands. Reported to be nonverbal at baseline.) Ability to Follow Directions: Poor - Hearing Hearing: Impaired Hearing Aide: No Speech Evaluation - Communication Primary Language: GABONESE Communication: Yes: Non-Communicable Oral Expression Ability: Yes: Non-Verbal - Swallow Evaluation/Bedside Assessment Current Nutritional Intake: NPO Oral Secretions: Yes: WFL Recommendations - Speech Evaluation, Impression/Plan Impression: Sepsis, no po trials given per medical staff. Pending NGT insetion. - Disposition Discharge to: To be Determined - Dysphagia Impressions/Plan Swallowing Skills: Impaired (suspected) Dysphagia Impressions: Risk of Aspiration *Silent aspiration: cannot be R/O at bedside Recommendations: Other (Pending NGT. Mouth care. HOB elevation. Swallow evaluation f/u when pt improves, before PO diet ordered. High risk of aspiration suspected. r/o PNA.) - Recommendations Diet Consistency: NPO Liquids: NPO
[2018-06-24] MEDS: ACETAMINOPHEN 1000 MG/100 ML VIAL (NON FORMULARY) IVPB SCH ×3 (10:58→23:24)
--- NOTE | 2018-06-24 11:22 | PN ---
Progress Note (short form) - Note Progress Note: ID Consult dictated Septic shock Bilateral pneumonia DIXON Await sepsis workup Empiric zosyn/ vanco/ levaquin, adjusted for renal failure Prognosis poor Critical care time 45min
[2018-06-24] MEDS ORDERED: SODIUM CHLORIDE 1,000 ML IV SCH (11:45)
--- NOTE | 2018-06-24 11:51 | CONS ---
INFECTIOUS DISEASE CONSULTATION DATE OF CONSULTATION: DATE OF DICTATION: 06/24/2018 The patient is a 77-year-old female evaluated for septic shock. History was obtained from the chart as she cannot give a reliable history. The [facility] a [facility]. She has a history of parkinsonism. She is normally non-verbal. According to the notes, she has had worsening mental status and fever for the past 3 days at the [facility]. She had apparently become less responsive and interactive. In addition, she was noted to have high-grade fever to 105 at the penitentiary, associated with tachypnea. She was treated with IV antibiotics. She was brought to the emergency room at [facility] where the patient was noted to have a fever of 104.7. She was hypotensive and bradycardic. The patient required IV fluids and pressors. She was transferred to the intensive care unit where presently she is poorly responsive on pressors. She was noted to have cloudy urine. In the emergency room, patient was also hypoxemic with an O2 saturation of 78% and hypotensive, requiring IV fluids. Presently, she is awake. However, she is not verbally responsive. She is moaning. She is tachypneic at rest. No recent hospitalizations. No documented history of resistant pathogens. PAST MEDICAL HISTORY: Positive for parkinsonism, dementia, gastroesophageal reflux, hypertension, coronary artery disease, recurrent urinary tract infections, hyperlipidemia. ALLERGIES: LISINOPRIL (hives). MEDICATIONS: Include aspirin, Cogentin, Klonopin, norepinephrine, Zosyn, Ultram. SOCIAL HISTORY: assisted resident. Dependent in activities of daily living. Former smoker. SYSTEMS REVIEW: Neurologic: Positive for parkinsonism and dementia. Cardiac: As per HPI. Respiratory: As per HPI. Gastrointestinal: Negative vomiting or diarrhea. Genitourinary: Positive for urinary tract infection. LABORATORY DATA: White count on admission 29.5, presently 24.3; hematocrit 40.2; platelets 73. Sodium 157, BUN 115, creatinine 5.0. Lactic acid 3.0. Total bilirubin 1.0. Alkaline phosphatase 55, AST 437, ALT 124. Urinalysis: White cells 11. CAT scan: Left lower lobe consolidation; bilateral nephrolithiasis with mild hydronephrosis, left greater than right; fecal retention. PHYSICAL EXAMINATION: General: She is cachectic. She is not responsive, tachypneic at rest. Vital Signs: Temperature 101.5, T-max 104.7; blood pressure 118/71; pulse 102; respirations 22 per minute. HEENT: Sclerae anicteric. Temporal wasting. Dry mucous membranes. Heart: Sounds tachycardic. S1, S2. Lungs: Rhonchi bilaterally. Abdomen: Soft. No tenderness elicited. No mass, rebound, or rigidity. Extremities: Positive for edema. IMPRESSION: 1. Septic shock. 2. Bibasilar pneumonia. 3. Lactic acidosis. 4. Urinary tract infection. 5. Acute kidney injury. 6. Elevated liver enzymes, likely secondary to sepsis. 7. Marked leukocytosis. 8. Thrombocytopenia, likely secondary to sepsis. 9. Hypernatremia. 10. Exacerbation of parkinsonism. Await culture results. Will obtain urine legionella and pneumococcal antigens. Continue Zosyn and vancomycin adjusted for acute kidney injury. Will add atypical coverage with Levaquin pending sepsis workup. Continue hemodynamic support, pressors, ICU monitoring. Prognosis is poor. CRITICAL CARE TIME SPENT: Forty-five minutes. Thank you for the kind referral. KRISTEN HOLLY M.D. [id number]
[2018-06-24] MEDS ORDERED: PIPERACILLIN/TAZOB 2.25 GM 2.25 GM in DEXTROSE 5%-WATER - 50 ML IVPB SCH (12:00)
--- NOTE | 2018-06-24 12:22 | PN ---
Teaching Attending Note Name of Resident: Talon Nicholas ATTENDING PHYSICIAN STATEMENT I saw and evaluated the patient. I reviewed the resident's note and discussed the case with the resident. I agree with the resident's findings and plan as documented. SUBJECTIVE: Pt seen and examined in the ICU. Poorly responsive on levophed gtt. Febrile, tachycardic. CT chest showing LLL consolidation. OBJECTIVE: Vital Signs Period Temp Pulse Resp BP Sys/Younger Pulse Ox Last 24 Hr 99.9 F-104.7 F 40-104 18-34 78-161/40-109 95-99 Intake & Output 06/21/18 06/22/18 06/23/18 06/24/18 23:59 23:59 23:59 23:59 Intake Total 4000 700 Output Total 150 150 Balance 3850 550 Weight 53.977 kg 53.705 kg Gen: lethargic Heart: RRR Lung: scattered rhonchi Abd: soft, nontender Ext: no edema CBC, BMP 06/24/18 05:15 06/24/18 05:15 Active Medications Acetaminophen (Ofirmev Injection -) 1,000 mg IVPB Q6H [facility] Stop: 06/26/18 05:01 Last Admin: 06/24/18 10:58 Dose: 1,000 mg Aspirin (Asa -) 150 mg ME DAILY [facility] Last Admin: 06/24/18 10:57 Dose: 150 mg Benztropine Mesylate (Cogentin -) 2 mg PO BID [facility] Last Admin: 06/24/18 09:46 Dose: Not Given Chlorhexidine Gluconate (Hibiclens For Decolonization -) 1 applic TP HS [facility] Last Admin: 06/24/18 01:00 Dose: Not Given Clonazepam (Klonopin -) 0.5 mg PO BID [facility] Last Admin: 06/24/18 09:46 Dose: Not Given Heparin Sodium (Porcine) (Heparin -) 5,000 unit SQ BID [facility] Last Admin: 06/24/18 09:44 Dose: 5,000 unit Piperacillin Sod/Tazobactam (Sod 2.25 gm/ Dextrose) 50 mls @ 100 mls/hr IVPB Q6H-IV [facility]; Protocol Norepinephrine Bitartrate 4, (000 mcg/ Dextrose) 500 mls @ 37.5 mls/hr IV TITR [facility]; Protocol Last Titration: 06/24/18 00:00 Dose: 10 mcg/min, 75 mls/hr Levofloxacin (Levaquin 250 Mg Premixed Ivpb -) 250 mg in 50 mls @ 50 mls/hr IVPB Q2D@1000 [facility]; Protocol Famotidine/Sodium Chloride (Pepcid 20 Mg Premixed Ivpb -) 20 mg in 50 mls @ 100 mls/hr IVPB BID [facility] Sodium Chloride (Normal Saline -) 1,000 mls @ 75 mls/hr IV ASDIR [facility] Last Admin: 06/24/18 12:08 Dose: 75 mls/hr Mupirocin (Bactroban Ointment (For Decolonization) -) 1 applic NS BID [facility] Stop: 06/28/18 21:59 Last Admin: 06/24/18 09:47 Dose: 1 applic Ranolazine (Ranexa -) 500 mg PO BID [facility] Last Admin: 06/24/18 09:46 Dose: Not Given Tramadol HCl (Ultram -) 100 mg PO TID [facility] Last Admin: 06/24/18 05:54 Dose: Not Given ASSESSMENT AND PLAN: Pneumonia likely Aspiration r/o UTI Septic Shock Acute Kidney Injury Hypernatremia Lactic Acidosis Elevated LFTs likely Ischemic Injury +Troponins likely [place] Ischemia Thrombocytopenia HTN Hyperlipidemia Parkinsons Disease - continue antibiotics - f/u cultures - check CVP - IVF to keep CVP 8-12 - titrate pressors to maintain MAP >65 - trend cardiac enzymes - echocardiogram - trend LFTs - monitor urine output, creatinine - aspiration precautions - O2 to keep SPo2 >90% - monitor CBC - DVT/GI prophylaxis - continue ICU monitoring - prognosis guarded, pt DNR/DNI critical care time spent in reviewing chart, evaluating patient and formulating plan 35 min
[2018-06-24] MEDS: FAMOTIDINE 20 MG/50 ML IVPB 20 MG/50 ML MG IVPB SCH ×2 (13:14→21:45)
--- NOTE | 2018-06-24 13:22 | PN ---
Physical Exam: SUBJECTIVE: Patient seen and examined. Pt a-verbal. OBJECTIVE: Vital Signs Period Temp Pulse Resp BP Sys/Younger Pulse Ox Last 24 Hr 99.9 F-104.7 F 40-104 18-34 78-161/40-109 95-99 GENERAL: Withdraws to tactile stimuli, otherwise obtunded but protecting airway (per son pt non-verbal at baseline but generally vocalizes) HEAD: No signs of trauma, normocephalic, atraumatic EYES: PERRLA, EOMI, sclera anicteric, conjunctiva clear ENT: Hearing grossly normal, nares patent, oropharynx clear without exudates NECK: R IJ in place, supple LUNGS: LLL crackles, protecting airway, no tachypnea HEART: Regular rate and rhythm, normal S1 and S2, no murmurs appreciated, peripheral pulses normal and equal bilaterally ABDOMEN: Soft, nontender, normoactive bowel sounds. No guarding, no rebound EXTREMITIES : Normal inspection, Normal range of motion, no edema. No clubbing or cyanosis NEUROLOGICAL: Withdraws to painful stimuli, not alert, unable to assess orientation SKIN: Warm, Dry Active Medications Generic Name Dose Route Start Last Admin Trade Name Freq PRN Reason Stop Dose Admin Acetaminophen 1,000 mg 06/24/18 11:00 06/24/18 10:58 Ofirmev Injection - IVPB 06/26/18 05:01 1,000 mg Q6H SILVANA Administration Aspirin 150 mg 06/24/18 10:00 06/24/18 10:57 Asa - [place] 150 mg DAILY SILVANA Administration Benztropine Mesylate 2 mg 06/23/18 22:00 06/24/18 09:46 Cogentin - PO Not Given BID SILVANA Chlorhexidine Gluconate 1 applic 06/23/18 22:00 06/24/18 01:00 Hibiclens For Decolonization - TP Not Given HS SILVANA Clonazepam 0.5 mg 06/23/18 22:00 06/24/18 09:46 Klonopin - PO Not Given BID SILVANA Heparin Sodium (Porcine) 5,000 unit 06/23/18 22:00 06/24/18 09:44 Heparin - SQ 5,000 unit BID SILVANA Administration Piperacillin Sod/Tazobactam 50 mls @ 100 mls/hr 06/24/18 12:00 Sod 2.25 gm/ Dextrose IVPB Q6H-IV SILVANA Protocol Norepinephrine Bitartrate 4, 500 mls @ 37.5 mls/hr 06/23/18 21:15 06/24/18 00 :00 000 mcg/ Dextrose IV 10 mcg/min TITR SILVANA 75 mls/hr Titration Protocol 5 MCG/MIN Levofloxacin 250 mg in 50 mls @ 50 mls/hr 06/24/18 12:00 Levaquin 250 Mg Premixed Ivpb - IVPB Q2D@1000 SILVANA Protocol Famotidine/Sodium Chloride 20 mg in 50 mls @ 100 mls/hr 06/24/18 11:45 Pepcid 20 Mg Premixed Ivpb - IVPB BID SILVANA Sodium Chloride 1,000 mls @ 75 mls/hr 06/24/18 11:45 06/24/18 12:08 Normal Saline - IV 75 mls/hr ASDIR SILVANA Administration Mupirocin 1 applic 06/23/18 22:00 06/24/18 09:47 Bactroban Ointment (For Decolonization) - NS 06/28/18 21:59 1 applic BID SILVANA Administration Ranolazine 500 mg 06/23/18 22:00 06/24/18 09:46 Ranexa - PO Not Given BID SILVANA Tramadol HCl 100 mg 06/23/18 22:00 06/24/18 05:54 Ultram - PO Not Given TID SILVANA ASSESSMENT/PLAN: Neuro Anxiety -Clonazepam Acute Pain -Tramadol PRN Fever -Tylenol IV HEENT -R IJ (06/23/2018) CV HTN -Meds held given hypotension A-fib -per Cards -on ASA Hypotension -Levophed -IVF GI NGT placed -Plan to start feeds if patient unable to tolerate PO GI mucosal protection while on levo -Pepcid IV DIXON -NS started Hypernatremia -Will correct slowly -Patient on D5 w/ levophed Will obtain Urine PNA antigen HEME Hgb 12.5, will CTM DVT Ppx Hep SQ ID Will obtain random vanc trough Abx per ID [email or web address] [id number] KALA (06/23/2018) Tanvir (06/23/2018) Dispo: Will continue ICU care. Pt DNR/DNI Visit type - Emergency Visit Emergency Visit: Yes ED Registration Date: 06/23/18 Care time: The patient presented to the Emergency Department on the above date and was hospitalized for further evaluation of their emergent condition. - New Patient This patient is new to me today: Yes Date on this admission: 06/24/18 - Critical Care Critical Care patient: Yes Total Critical Care Time (in minutes): 45 Critical Care Statement: The care of this patient involved high complexity decision making to prevent further life threatening deterioration of the patient 's condition and/or to evaluate & treat vital organ system(s) failure or risk of failure.
[2018-06-24] MEDS: NOREPINEPHRINE BITARTRATE 4,000 MCG in DEXTROSE 5%-WATER - 496 ML IV SCH ×2 (13:40→21:35)
[2018-06-24 14:29] LABS: ANION GAP 8 MMOL/L (8-16); CALCIUM 7.2 mg/dL (8.5-10.1); CHLORIDE 125 mmol/L (98-107); CO2 22 mmol/L (21-32); CREATININE 4.8 mg/dL (0.55-1.3); GLUCOSE,RANDOM 127 mg/dL (74-106); POTASSIUM 3.9 mmol/L (3.5-5.1); SODIUM 155 mmol/L (136-145)
[2018-06-24 14:45] LABS: BLOOD UREA NITROGEN 117 mg/dL (7-18)
--- NOTE | 2018-06-24 16:24 | EKG ---
Test Reason : Blood Pressure : / mmHG Vent. Rate : 103 BPM Atrial Rate : 103 BPM P-R Int : 166 ms QRS Dur : 136 ms QT Int : 360 ms P-R-T Axes : 089 -83 041 degrees QTc Int : 471 ms BASELINE ARTIFACT SINUS TACHYCARDIA WITH PREMATURE SUPRAVENTRICULAR COMPLEXES LEFT AXIS DEVIATION RIGHT BUNDLE BRANCH BLOCK POSSIBLE LATERAL INFARCT , AGE UNDETERMINED ABNORMAL ECG Confirmed by MD RHODA, HEBER ([id number]) on 06/24/2018 4:24:16 PM Referred By: MITCHEL VALENTINO Confirmed By:HEBER DUONG MD
--- NOTE | 2018-06-24 16:29 | EKG ---
Test Reason : Blood Pressure : / mmHG Vent. Rate : 041 BPM Atrial Rate : 041 BPM P-R Int : 190 ms QRS Dur : 126 ms QT Int : 488 ms P-R-T Axes : 069 270 -17 degrees QTc Int : 402 ms POOR DATA QUALITY, INTERPRETATION MAY BE ADVERSELY AFFECTED MARKED SINUS BRADYCARDIA WITH PREMATURE ATRIAL COMPLEXES LEFT AXIS DEVIATION RIGHT BUNDLE BRANCH BLOCK T WAVE ABNORMALITY, CONSIDER LATERAL ISCHEMIA ABNORMAL ECG Confirmed by MD RHODA, HEBER ([id number]) on 06/24/2018 4:29:30 PM Referred By: Confirmed By:HEBER DUONG MD
--- NOTE | 2018-06-24 17:02 | ECHO ---
Name: JOLIE DE LA VEGA Exam:Adult Echocardiogram Study Date: 06/24/2018 10:19 AM Age: 77 yrs Reason For Study: LVEF NSTEMI Height: 63 in Weight: 118 lb BSA: 1.5 m2 BP: 119/71 mmHg MMode/2D Measurements & Calculations IVSd: 0.90 cm Ao root diam: 2.6 cm LVIDd: 3.6 cm LA dimension: 3.4 cm LVIDs: 2.5 cm LVPWd: 0.88 cm EDV(Teich): 53.6 ml TAPSE: 2.4 cm ESV(Teich): 21.7 ml Doppler Measurements & Calculations MV E max jake: 42.9 cm/sec Ao V2 max: 97.7 cm/sec MV A max jake: 87.9 cm/sec Ao max P.8 mmHg MV E/A: 0.49 LV V1 max P.3 mmHg TR max jake: 238.4 cm/sec LV V1 max: 115.0 cm/sec TR max P.8 mmHg Med Peak E' Jake: 8.2 cm/sec Med E/e': 5.2 Lat Peak E' Jake: 8.1 cm/sec Lat E/e': 5.3 Procedure The study was technically difficult with many images being suboptimal in quality. Left Ventricle The left ventricle is normal in size. The left ventricle is hyperdynamic. LVEF = 75%. E/A reversal co nsistent with but not diagnostic of poor LV compliance. Right Ventricle The right ventricle is normal in size and function. Atria Normal left and right atrial size and function. Mitral Valve There is mild to moderate mitral annular calcification. There is trace mitral regurgitation. Tricuspid Valve The tricuspid valve is not well visualized, but is grossly normal. There was insufficient TR detected to calculate RV systolic pressure. Aortic Valve There is mild to moderate aortic sclerosis.;. No hemodynamically significant valvular aortic stenosis . Pulmonic Valve The pulmonic valve is not well visualized. Great Vessels The aortic root is not well visualized. Pericardium/Pleura There is no pericardial effusion. Interpretation Summary The study was technically difficult with many images being suboptimal in quality. The left ventricle is normal in size. The left ventricle is hyperdynamic. LVEF = 75%. The right ventricle is normal in size and function. Normal left and right atrial size and function. There is mild to moderate aortic sclerosis.; No hemodynamically significant valvular aortic stenosis. There is mild to moderate mitral annular calcification. MD Simona Valverde 06/24/2018 05:02 PM
--- NOTE | 2018-06-24 17:35 | CONSULT ---
Consult Consult Specialty:: Nephrology Reason for Consultation:: hypernatremia and DIXON - History of Present Illness Chief Complaint: lethargy History of Present Illness: Pt is a 77 year old female with pmhx of HTN, dementia, angina, and UTI who presents to the ER with increased lethargy. She is not verbal at baseline. Pt is unable to give history. I was called to evaluate her for DIXON and hypernatremia. She was found to be febrile in the NH. I reviewed the chart. She is now in the ICU and on pressors for hypotension. Her sodium has been improving. - History Source History Provided By: Medical Record Limitations to Obtaining History: Clinical Condition - Past Medical History [employer]: Yes: Dementia, Parkinson's Cardio/Vascular: Yes: CAD, HTN - Past Surgical History Additional Surgical History: Prior PCI - Alcohol/Substance Use Hx Alcohol Use: No - Smoking History Smoking history: Unknown if ever smoked Aproximately how many cigarettes per day: 0 If you are a former smoker, when did you quit?: 35 years ago - Social History Usual Living Arrangement: [facility] Home Medications - Allergies Allergies/Adverse Reactions: Allergies Allergy/AdvReac Type Severity Reaction Status Date / Time lisinopril [From Prinivil] Allergy Mild Hives Verified 06/23/18 15:59 - Home Medications Home Medications: Ambulatory Orders Clonazepam [Klonopin] 0.5 mg PO BID 07/24/12 Hydrochlorothiazide [Hctz] 50 mg PO DAILY 07/24/12 Metoprolol Succinate [Toprol XL] 50 mg PO DAILY 07/24/12 Ranolazine [Ranexa] 500 mg PO DAILY 07/24/12 Rosuvastatin Calcium [Crestor] 10 mg PO HS 07/24/12 Benztropine Mesylate [Cogentin] 2 mg PO BID 08/12/13 Tramadol HCl [Tramadol HCl ER] 100 mg PO TID 08/12/13 Family Disease History - Family Disease History Family History: Unable to Obtain Review of Systems Unable to obtain ROS, reason: lethargy, non verbal Physical Exam Vital Signs: Vital Signs Temperature 101.7 F H 06/24/18 12:00 Pulse Rate 94 H 06/24/18 16:00 Respiratory Rate 20 06/24/18 14:00 Blood Pressure 113/59 L 06/24/18 16:00 O2 Sat by Pulse Oximetry (%) 98 06/24/18 14:00 Constitutional: Yes: Mild Distress Eyes: Yes: Conjunctiva Clear Neck: Yes: Supple Cardiovascular: Yes: S1, S2 Respiratory: Yes: On Venti-Mask, Wheezes Gastrointestinal: Yes: Soft Renal/: Yes: Saldaña Present Musculoskeletal: Yes: Muscle Weakness Edema: Yes Edema: LLE: 1+, RLE: 1+ Neurological: Yes: Lethargy Labs: CBC, BMP 06/24/18 05:15 06/24/18 12:00 Laboratory Tests 08/01/14 06/23/18 06/23/18 13:30 16:10 16:10 WBC 29.5 H Sodium Creatinine 1.0 5.5 H Urine Protein 06/23/18 06/23/18 06/24/18 17:55 19:00 00:54 WBC Sodium 162 H* 160 H Creatinine 5.0 H 4.9 H Urine Protein 1+ H 06/24/18 06/24/18 06/24/18 05:15 05:15 12:00 WBC 24.3 H Sodium 157 H 155 H Creatinine 5.0 H 4.8 H Urine Protein Imaging - Results Chest X-ray: Report Reviewed Cat Scan: Report Reviewed Problem List - Problems (1) DIXON (acute kidney injury) Code(s): N17.9 - ACUTE KIDNEY FAILURE, UNSPECIFIED (2) Coronary artery disease Code(s): I25.10 - ATHSCL HEART DISEASE OF [place] CORONARY ARTERY W/O ANG PCTRS (3) Elevated troponin Code(s): R74.8 - ABNORMAL LEVELS OF OTHER SERUM ENZYMES (4) Hypernatremia Code(s): E87.0 - HYPEROSMOLALITY AND HYPERNATREMIA (5) Parkinson disease Code(s): G20 - PARKINSON'S DISEASE Assessment/Plan Current Medications Generic Name Dose Route Start Last Admin Trade Name Freq PRN Reason Stop Dose Admin Acetaminophen 1,000 mg 06/24/18 11:00 06/24/18 17:06 Ofirmev Injection - IVPB 06/26/18 05:01 1,000 mg Q6H SILVANA Administration Aspirin 150 mg 06/24/18 10:00 06/24/18 10:57 Asa - [place] 150 mg DAILY SILVANA Administration Benztropine Mesylate 2 mg 06/23/18 22:00 12/18/18 09:46 Cogentin - PO Not Given BID [facility] Chlorhexidine Gluconate 1 applic 06/23/18 22:00 06/24/18 01:00 Hibiclens For Decolonization - TP Not Given HS [facility] Clonazepam 0.5 mg 06/23/18 22:00 06/24/18 09:46 Klonopin - PO Not Given BID SILVANA Heparin Sodium (Porcine) 5,000 unit 06/23/18 22:00 06/24/18 09:44 Heparin - SQ 5,000 unit BID SILVANA Administration Piperacillin Sod/Tazobactam 50 mls @ 100 mls/hr 06/24/18 12:00 Sod 2.25 gm/ Dextrose IVPB Q6H-IV SILVANA Protocol Norepinephrine Bitartrate 4, 500 mls @ 37.5 mls/hr 06/23/18 21:15 06/24/18 16 :00 000 mcg/ Dextrose IV 6 mcg/min TITR SILVANA 45 mls/hr Titration Protocol 5 MCG/MIN Levofloxacin 250 mg in 50 mls @ 50 mls/hr 06/24/18 12:00 06/24/18 13:14 Levaquin 250 Mg Premixed Ivpb - IVPB 50 mls/hr Q2D@1000 SILVANA Administration Protocol Famotidine/Sodium Chloride 20 mg in 50 mls @ 100 mls/hr 06/24/18 11:45 13:14 Pepcid 20 Mg Premixed Ivpb - IVPB 100 mls/hr BID SILVANA Administration Sodium Chloride 1,000 mls @ 75 mls/hr 06/24/18 11:45 06/24/18 12:08 Normal Saline - IV 75 mls/hr ASDIR SILVANA Administration Mupirocin 1 applic 06/23/18 22:00 06/24/18 09:47 Bactroban Ointment (For Decolonization) - NS 06/28/18 21:59 1 applic BID SILVANA Administration Ranolazine 500 mg 06/23/18 22:00 06/24/18 09:46 Ranexa - PO Not Given BID SILVANA Tramadol HCl 100 mg 06/23/18 22:00 06/24/18 13:45 Ultram - PO 100 mg TID SILVANA Administration Impression 1. DIXON 2. hypernatremia 3. sepsis 4. PNA 5. r/o UTI 6. lactic acidosis 7. parkinsons 8. positive troponins 9. HTN 10. HLD Plan - sodium is improving - cont fluids and cont to monitor - avoid a change of greater than 10 meq in 24 hours - monitor bp - check renal ultrasound - check ua, lytes and motorman/woman to calc fena - likely atn from shock and sepsis - maintain saldaña and monitor output - monitor in ICU - will follow Dr Gonsalez
[2018-06-24] MEDS ORDERED: VANCOMYCIN 1 GM in D5W (PRE-DOCKED) 1,000 MG/250 ML IVPB ONE (18:31)
[2018-06-24 18:39] LABS: URINE APPEARANCE CLOUDY; URINE BILIRUBIN NEGATIVE (<2.0 mg/dL); URINE COLOR AMBER; URINE GLUCOSE (UA) NEGATIVE (NEGATIVE); URINE KETONE NEGATIVE (NEGATIVE); URINE LEUK ESTERASE 1+ (NEGATIVE); URINE NITRITE NEGATIVE (NEGATIVE); URINE PROTEIN 1+ (NEGATIVE)
[2018-06-24 18:42] LABS: EPI CELLS RARE /HPF (FEW); URINE BACTERIA RARE /hpf (NONE SEEN); URINE MUCUS RARE; YEAST MANY
[2018-06-25] MEDS ORDERED: NOREPINEPHRINE BITARTRATE 4 MG/4 ML ML IV ONE (00:35)
[2018-06-25] MEDS: traMADol HCL 50 MG TABLET PO SCH ×3 (01:42→21:33)
[2018-06-25] MEDS: ACETAMINOPHEN 1000 MG/100 ML VIAL (NON FORMULARY) IVPB SCH ×4 (05:52→23:42)
[2018-06-25 06:01] LABS: BASO % 0.3 % (0-2.0); EOS % 1.5 % (0-4.5); HEMATOCRIT 34.4 % (32.4-45.2); HEMOGLOBIN 10.8 GM/dL (10.7-15.3); LYMPH % 5.6 % (8-40); MCHC 31.2 g/dl (32.0-36.0); MEAN CELL VOLUME 92.9 fl (80-96); MEAN PLT VOLUME 13.8 fl (7.5-11.1); MONO % 1.4 % (3.8-10.2); NEUT % 91.2 % (42.8-82.8); PLATELET COUNT 62 K/MM3 (134-434); RBC 3.71 M/mm3 (3.60-5.2); RDW 15.4 % (11.6-15.6); WHITE BLOOD COUNT 15.5 K/mm3 (4.0-10.0)
[2018-06-25 06:39] LABS: ALBUMIN 2.2 g/dl (3.4-5.0); ALK PHOS 55 U/L (45-117); ANION GAP 6 MMOL/L (8-16); CHLORIDE 126 mmol/L (98-107); CO2 23 mmol/L (21-32); CREATININE 4.2 mg/dL (0.55-1.3); GLUCOSE,RANDOM 119 mg/dL (74-106); MAGNESIUM 2.7 mg/dL (1.8-2.4); PHOSPHOROUS 5.5 mg/dL (2.5-4.9); POTASSIUM 3.8 mmol/L (3.5-5.1); SGOT/AST 173 U/L (15-37); SGPT/ALT 127 U/L (13-61); SODIUM 156 mmol/L (136-145); TOT PROT 5.2 g/dl (6.4-8.2)
[2018-06-25 06:48] LABS: BLOOD UREA NITROGEN 115 mg/dL (7-18)
--- NOTE | 2018-06-25 08:28 | PN ---
Progress Note, Physician - Current Medication List Current Medications: Active Medications Acetaminophen (Ofirmev Injection -) 1,000 mg IVPB Q6H [facility] Stop: 06/26/18 05:01 Last Admin: 06/25/18 05:52 Dose: 1,000 mg Aspirin (Asa -) 150 mg [place] DAILY [facility] Last Admin: 06/24/18 10:57 Dose: 150 mg Benztropine Mesylate (Cogentin -) 2 mg PO BID [facility] Last Admin: 06/24/18 23:25 Dose: 2 mg Chlorhexidine Gluconate (Hibiclens For Decolonization -) 1 applic TP HS SILVANA Last Admin: 06/24/18 21:45 Dose: 1 applic Clonazepam (Klonopin -) 0.5 mg PO BID [facility] Last Admin: 06/24/18 21:45 Dose: Not Given Heparin Sodium (Porcine) (Heparin -) 5,000 unit SQ BID [facility] Last Admin: 06/24/18 21:36 Dose: 5,000 unit Piperacillin Sod/Tazobactam (Sod 2.25 gm/ Dextrose) 50 mls @ 100 mls/hr IVPB Q6H-IV SILVANA; Protocol Norepinephrine Bitartrate 4, (000 mcg/ Dextrose) 500 mls @ 37.5 mls/hr IV TITR SILVANA; Protocol Last Titration: 06/25/18 04:00 Dose: 3 mcg/min, 22.5 mls/hr Levofloxacin (Levaquin 250 Mg Premixed Ivpb -) 250 mg in 50 mls @ 50 mls/hr IVPB Q2D@1000 SILVANA; Protocol Last Admin: 06/24/18 13:14 Dose: 50 mls/hr Famotidine/Sodium Chloride (Pepcid 20 Mg Premixed Ivpb -) 20 mg in 50 mls @ 100 mls/hr IVPB BID SILVANA Last Admin: 06/24/18 21:45 Dose: 100 mls/hr Sodium Chloride (1/2 Normal Saline) 1,000 mls @ 83 mls/hr IV ASDIR SILVANA Mupirocin (Bactroban Ointment (For Decolonization) -) 1 applic NS BID [facility] Stop: 06/28/18 21:59 Last Admin: 06/24/18 21:36 Dose: 1 applic Ranolazine (Ranexa -) 500 mg PO BID [facility] Last Admin: 06/24/18 21:36 Dose: 500 mg Tramadol HCl (Ultram -) 100 mg PO TID SILVANA Last Admin: 06/25/18 05:53 Dose: 100 mg - Objective Vital Signs: Vital Signs Temperature 97.1 F L 06/25/18 06:00 Pulse Rate 72 06/25/18 06:00 Respiratory Rate 16 06/25/18 06:00 Blood Pressure 100/56 L 06/25/18 06:00 O2 Sat by Pulse Oximetry (%) 98 06/24/18 20:56 Cardiovascular: Yes: S1, S2 Respiratory: Yes: Diminished, Rales Gastrointestinal: Yes: Normal Bowel Sounds, Soft Neurological: Yes: Lethargy Labs: CBC, BMP 06/25/18 05:30 06/25/18 05:30 INR, PTT INR 1.28 (0.83-1.09) H 06/23/18 19:00 Problem List - Problems (1) Sepsis Assessment/Plan: - cxr llq infiltr - Zosyn--Id consult - Blood and urine cultures pending Microbiology 06/24/18 18:20 Urine For Antigen Detection Legionella Antigen - Preliminary 06/24/18 18:20 Urine For Antigen Detection Streptococcus pneumoniae Antigen (M - Preliminary 06/23/18 17:55 Urine - Urine - Catheterized Urine Culture - Preliminary Lactose Fermenting Neg Bacilli 06/23/18 22:31 Blood - Peripheral Venous Blood Culture - Preliminary NO GROWTH OBTAINED AFTER 24 HOURS, INCUBATION TO CONTINUE FOR 4 DAYS. 06/23/18 19:00 Blood - Peripheral Venous Blood Culture - Preliminary NO GROWTH OBTAINED AFTER 24 HOURS, INCUBATION TO CONTINUE FOR 4 DAYS. Code(s): A41.9 - SEPSIS, UNSPECIFIED ORGANISM Qualifiers: Sepsis type: sepsis due to unspecified organism Qualified Code(s): A41.9 - Sepsis, unspecified organism (2) Hypernatremia Assessment/Plan: - Na 164 - IV fluids: D5 1/2 NS - Monitor BMP - Nephrology consult ordered Code(s): E87.0 - HYPEROSMOLALITY AND HYPERNATREMIA (3) DIXON (acute kidney injury) Assessment/Plan: - BUN/Cr 113/5.5 - IV fluids - Monitor BMP - Avoid nephrotoxic agents - Nephrology consult ordered Code(s): N17.9 - ACUTE KIDNEY FAILURE, UNSPECIFIED (4) Parkinson disease Assessment/Plan: - Continue Cogentin 2 mg PO BID Code(s): G20 - PARKINSON'S DISEASE (5) Abnormal LFTs Assessment/Plan: - AST/ALT Laboratory Tests 06/24/18 06/25/18 05:15 05:30 AST 437 H 173 H ALT 124 H 127 H - Hold statin - Monitor CMP Code(s): R94.5 - ABNORMAL RESULTS OF LIVER FUNCTION STUDIES (6) Elevated troponin Code(s): R74.8 - ABNORMAL LEVELS OF OTHER SERUM ENZYMES
--- NOTE | 2018-06-25 08:41 | PN ---
Progress Note, Physician Chief Complaint: Remains on pressors TELE: NSR, artifact, 3-4 beat run NSVT History of Present Illness: TnI trending down - Current Medication List Current Medications: Active Medications Acetaminophen (Ofirmev Injection -) 1,000 mg IVPB Q6H [facility] Stop: 06/26/18 05:01 Last Admin: 06/25/18 05:52 Dose: 1,000 mg Aspirin (Asa -) 150 mg [place] DAILY [facility] Last Admin: 06/24/18 10:57 Dose: 150 mg Benztropine Mesylate (Cogentin -) 2 mg PO BID [facility] Last Admin: 06/24/18 23:25 Dose: 2 mg Chlorhexidine Gluconate (Hibiclens For Decolonization -) 1 applic TP HS [facility] Last Admin: 06/24/18 21:45 Dose: 1 applic Clonazepam (Klonopin -) 0.5 mg PO BID [facility] Last Admin: 06/24/18 21:45 Dose: Not Given Heparin Sodium (Porcine) (Heparin -) 5,000 unit SQ BID [facility] Last Admin: 06/24/18 21:36 Dose: 5,000 unit Piperacillin Sod/Tazobactam (Sod 2.25 gm/ Dextrose) 50 mls @ 100 mls/hr IVPB Q6H-IV SILVANA; Protocol Norepinephrine Bitartrate 4, (000 mcg/ Dextrose) 500 mls @ 37.5 mls/hr IV TITR SILVANA; Protocol Last Titration: 06/25/18 04:00 Dose: 3 mcg/min, 22.5 mls/hr Levofloxacin (Levaquin 250 Mg Premixed Ivpb -) 250 mg in 50 mls @ 50 mls/hr IVPB Q2D@1000 SILVANA; Protocol Last Admin: 06/24/18 13:14 Dose: 50 mls/hr Famotidine/Sodium Chloride (Pepcid 20 Mg Premixed Ivpb -) 20 mg in 50 mls @ 100 mls/hr IVPB BID [facility] Last Admin: 06/24/18 21:45 Dose: 100 mls/hr Sodium Chloride (1/2 Normal Saline) 1,000 mls @ 83 mls/hr IV ASDIR SILVANA Mupirocin (Bactroban Ointment (For Decolonization) -) 1 applic NS BID [facility] Stop: 06/28/18 21:59 Last Admin: 06/24/18 21:36 Dose: 1 applic Ranolazine (Ranexa -) 500 mg PO BID [facility] Last Admin: 06/24/18 21:36 Dose: 500 mg Tramadol HCl (Ultram -) 100 mg PO TID [facility] Last Admin: 06/25/18 05:53 Dose: 100 mg - Objective Vital Signs: Vital Signs Temperature 97.1 F L 06/25/18 06:00 Pulse Rate 72 06/25/18 06:00 Respiratory Rate 16 06/25/18 06:00 Blood Pressure 100/56 L 06/25/18 06:00 O2 Sat by Pulse Oximetry (%) 98 06/24/18 20:56 Cardiovascular: Yes: Regular Rate and Rhythm Respiratory: Yes: Other (bilateral rhonchi) Gastrointestinal: Yes: Soft Edema: No Labs: CBC, BMP 06/25/18 05:30 06/25/18 05:30 INR, PTT INR 1.28 (0.83-1.09) H 06/23/18 19:00 Laboratory Tests 06/24/18 06/24/18 06/25/18 05:15 12:00 05:30 WBC 15.5 H Hgb 10.8 Plt Count 62 L Sodium Potassium BUN Creatinine Troponin I 4.59 H* 4.34 H* 06/25/18 06/25/18 05:30 05:30 WBC Hgb Plt Count Sodium 156 H Potassium 3.8 BUN 115 H* Creatinine 4.2 H Troponin I 1.84 H* - ....Imaging X-ray: Image Reviewed EKG: Image Reviewed Problem List - Problems (1) Sepsis Code(s): A41.9 - SEPSIS, UNSPECIFIED ORGANISM Qualifiers: Sepsis type: sepsis due to unspecified organism Qualified Code(s): A41.9 - Sepsis, unspecified organism (2) DIXON (acute kidney injury) Code(s): N17.9 - ACUTE KIDNEY FAILURE, UNSPECIFIED (3) Elevated troponin Code(s): R74.8 - ABNORMAL LEVELS OF OTHER SERUM ENZYMES (4) Hypernatremia Code(s): E87.0 - HYPEROSMOLALITY AND HYPERNATREMIA (5) Coronary artery disease Code(s): I25.10 - ATHSCL HEART DISEASE OF [place] CORONARY ARTERY W/O ANG PCTRS (6) DNR (do not resuscitate) Code(s): Z66 - DO NOT RESUSCITATE Assessment/Plan IMP: Severe sepsis, septic shock with multisystem organ failure Advanced Parkinson's CAD w/ prior PCI Elevated TnI: secondary to demand ischemia in setting hypotension due to severe septic shock DNR/DNI REC: 1. Pressors to maintain MAP 60mmHg 2. Broad spectrum abx as per Critical Care Team: now on Vanc and Zosyn; follow cultures 3. DVT and GI prophylaxis 4. Add ASA 81mg daily via NGT or per rectum. Would not begin Heparin gtts or Plavix in setting of low platelets (sepsis) 5. Echo with hyperdynamic LV c/w volume depletion/sepsis 6. Supportive measures for Rx of sepsis and comfort as per family wishes.
[2018-06-25] MEDS: SODIUM CHLORIDE 0.45% 1,000 ML IV SCH ×2 (08:54→22:00)
--- NOTE | 2018-06-25 09:19 | PN ---
Progress Note, Physician Chief Complaint: Non verbal History of Present Illness: Patient seen and examined at bedside Tmax 101.9 at 10AM yesterday Remains febrile but overall fever curve trending down - Current Medication List Current Medications: Active Medications Acetaminophen (Ofirmev Injection -) 1,000 mg IVPB Q6H [facility] Stop: 06/26/18 05:01 Last Admin: 06/25/18 05:52 Dose: 1,000 mg Aspirin (Asa -) 150 mg DE DAILY [facility] Last Admin: 06/24/18 10:57 Dose: 150 mg Benztropine Mesylate (Cogentin -) 2 mg PO BID [facility] Last Admin: 06/24/18 23:25 Dose: 2 mg Chlorhexidine Gluconate (Hibiclens For Decolonization -) 1 applic TP HS [facility] Last Admin: 06/24/18 21:45 Dose: 1 applic Clonazepam (Klonopin -) 0.5 mg PO BID [facility] Last Admin: 06/24/18 21:45 Dose: Not Given Heparin Sodium (Porcine) (Heparin -) 5,000 unit SQ BID [facility] Last Admin: 06/24/18 21:36 Dose: 5,000 unit Piperacillin Sod/Tazobactam (Sod 2.25 gm/ Dextrose) 50 mls @ 100 mls/hr IVPB Q6H-IV [facility]; Protocol Norepinephrine Bitartrate 4, (000 mcg/ Dextrose) 500 mls @ 37.5 mls/hr IV TITR [facility]; Protocol Last Titration: 06/25/18 04:00 Dose: 3 mcg/min, 22.5 mls/hr Levofloxacin (Levaquin 250 Mg Premixed Ivpb -) 250 mg in 50 mls @ 50 mls/hr IVPB Q2D@1000 [facility]; Protocol Last Admin: 06/24/18 13:14 Dose: 50 mls/hr Famotidine/Sodium Chloride (Pepcid 20 Mg Premixed Ivpb -) 20 mg in 50 mls @ 100 mls/hr IVPB BID [facility] Last Admin: 06/24/18 21:45 Dose: 100 mls/hr Sodium Chloride (1/2 Normal Saline) 1,000 mls @ 83 mls/hr IV ASDIR [facility] Last Admin: 06/25/18 08:54 Dose: 83 mls/hr Mupirocin (Bactroban Ointment (For Decolonization) -) 1 applic NS BID [facility] Stop: 06/28/18 21:59 Last Admin: 06/24/18 21:36 Dose: 1 applic Ranolazine (Ranexa -) 500 mg PO BID [facility] Last Admin: 06/24/18 21:36 Dose: 500 mg Tramadol HCl (Ultram -) 100 mg PO TID [facility] Last Admin: 06/25/18 05:53 Dose: 100 mg - Objective Vital Signs: Vital Signs Temperature 97.1 F L 06/25/18 06:00 Pulse Rate 72 06/25/18 06:00 Respiratory Rate 16 06/25/18 06:00 Blood Pressure 100/56 L 06/25/18 06:00 O2 Sat by Pulse Oximetry (%) 98 06/24/18 20:56 Constitutional: Yes: No Distress, Calm, Thin Eyes: Yes: EOM Intact HENT: Yes: Atraumatic, Other (right IJ in place) Neck: Yes: Supple Cardiovascular: Yes: Regular Rate and Rhythm Respiratory: Yes: CTA Bilaterally Gastrointestinal: Yes: Other (abdomen was slightly hard this AM but non tender non distended) Edema: No Neurological: Yes: Alert, Other (able to open eyes and move head towards voice when name called) Labs: CBC, BMP 06/25/18 05:30 06/25/18 05:30 INR, PTT INR 1.28 (0.83-1.09) H 06/23/18 19:00 - ....Imaging X-ray: Report Reviewed, Image Reviewed Assessment/Plan 77F with septic shock secondary to pneumonia. 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 Protonix for GI PPx KUB did not show free air Started on 1/2 NS for hypernatremia saldaña with decent urine output and some sediment Electrolytes Hypernatremia improving change fluids to 1/2 NS per nephrology HEME Hgb 10.8 Will continue to trend ID Will obtain random vanc trough continue Abx per ID-on Zosyn Levaquin and Vanco Will get random vanco level in AM and dose as needed according to level if <15 will give 15mg/kg urine antigens negative Patient remians febrile but fever curve trending down Tylenol IV q6h PRN Right IJ day 2 Saldaña Day 2 LTD R IJ (06/23/2018) Saldaña (06/23/2018) Dispo: on levophed. continue ICU care
[2018-06-25] MEDS ORDERED: BISACODYL 5 MG TABLET.DR (FP) PO ONE (10:06)
[2018-06-25] MEDS ORDERED: BISACODYL 10 MG SUPP.RECT PR PRN (10:06)
[2018-06-25] MEDS: ASPIRIN 300 MG SUPP.RECT PR SCH (10:32)
[2018-06-25] MEDS: HEPARIN NA (PORCINE) 5,000 UNITS/ML 1ML VIAL SQ SCH ×2 (10:33→21:32)
[2018-06-25] MEDS: RANOLAZINE E.R. 500 MG TABLET (FP) PO SCH ×2 (10:33→21:34)
[2018-06-25] MEDS: FAMOTIDINE 20 MG/50 ML IVPB 20 MG/50 ML MG IVPB SCH ×2 (10:33→21:32)
[2018-06-25] MEDS: clonazePAM 0.5 MG TABLET PO SCH ×2 (10:35→21:34)
[2018-06-25] MEDS: MUPIROCIN 2% TOPICAL OINTMENT FOR DECOLONIZATION NS SCH ×3 (10:41→21:34)
--- NOTE | 2018-06-25 12:00 | PN ---
Teaching Attending Note Name of Resident: Elder Perdomo ATTENDING PHYSICIAN STATEMENT I saw and evaluated the patient. I reviewed the resident's note and discussed the case with the resident. I agree with the resident's findings and plan as documented. SUBJECTIVE: Pt seen and examined in the ICU. Remains lethargic but on lower dose levophed gtt. OBJECTIVE: Vital Signs Period Temp Pulse Resp BP Sys/Younger Pulse Ox Last 24 Hr 97.1 F-101.7 F 70-107 12-20 93-124/51-75 98-98 Intake & Output 06/22/18 06/23/18 06/24/18 06/25/18 23:59 23:59 23:59 23:59 Intake Total 4000 2285 1870 Output Total 150 950 250 Balance 3850 1335 1620 Weight 53.977 kg 53.705 kg Gen: lethargic Heart: RRR Lung: scattered rhonchi Abd: soft, nontender Ext: no edema CBC, BMP 06/25/18 05:30 06/25/18 05:30 Hepatic Panel Total Bilirubin 1.0 mg/dL (0.2-1) 06/25/18 05:30 AST 173 U/L (15-37) H 06/25/18 05:30 ALT 127 U/L (13-61) H 06/25/18 05:30 Alkaline Phosphatase 55 U/L (45-117) 06/25/18 05:30 Albumin 2.2 g/dl (3.4-5.0) L 06/25/18 05:30 Active Medications Acetaminophen (Ofirmev Injection -) 1,000 mg IVPB Q6H [facility] Stop: 06/26/18 05:01 Last Admin: 06/25/18 05:52 Dose: 1,000 mg Aspirin (Asa -) 150 mg [place] DAILY [facility] Last Admin: 06/25/18 10:32 Dose: 150 mg Benztropine Mesylate (Cogentin -) 2 mg PO BID [facility] Last Admin: 06/24/18 23:25 Dose: 2 mg Bisacodyl (Dulcolax Suppository -) 10 mg [place] PRN PRN PRN Reason: CONSTIPATION Chlorhexidine Gluconate (Hibiclens For Decolonization -) 1 applic TP HS [facility] Last Admin: 06/24/18 21:45 Dose: 1 applic Clonazepam (Klonopin -) 0.5 mg PO BID [facility] Last Admin: 06/25/18 10:35 Dose: Not Given Heparin Sodium (Porcine) (Heparin -) 5,000 unit SQ BID [facility] Last Admin: 06/25/18 10:33 Dose: 5,000 unit Norepinephrine Bitartrate 4, (000 mcg/ Dextrose) 500 mls @ 37.5 mls/hr IV TITR [facility]; Protocol Last Titration: 06/25/18 04:00 Dose: 3 mcg/min, 22.5 mls/hr Levofloxacin (Levaquin 250 Mg Premixed Ivpb -) 250 mg in 50 mls @ 50 mls/hr IVPB Q2D@1000 [facility]; Protocol Last Admin: 06/24/18 13:14 Dose: 50 mls/hr Famotidine/Sodium Chloride (Pepcid 20 Mg Premixed Ivpb -) 20 mg in 50 mls @ 100 mls/hr IVPB BID [facility] Last Admin: 06/25/18 10:33 Dose: 100 mls/hr Sodium Chloride (1/2 Normal Saline) 1,000 mls @ 83 mls/hr IV ASDIR [facility] Last Admin: 06/25/18 08:54 Dose: 83 mls/hr Piperacillin Sod/Tazobactam (Sod 2.25 gm/ Dextrose) 50 mls @ 100 mls/hr IVPB Q8H-IV [facility]; Protocol Mupirocin (Bactroban Ointment (For Decolonization) -) 1 applic NS BID [facility] Stop: 06/28/18 21:59 Last Admin: 06/24/18 21:36 Dose: 1 applic Polyethylene Glycol (Miralax (For Daily Use) -) 17 gm PO DAILY [facility] Ranolazine (Ranexa -) 500 mg PO BID [facility] Last Admin: 06/25/18 10:33 Dose: 500 mg Tramadol HCl (Ultram -) 100 mg PO TID [facility] Last Admin: 06/25/18 05:53 Dose: 100 mg ASSESSMENT AND PLAN: Pneumonia likely Aspiration r/o UTI Septic Shock Acute Kidney Injury Hypernatremia Lactic Acidosis Elevated LFTs likely Ischemic Injury +Troponins likely Demand Ischemia Thrombocytopenia HTN Hyperlipidemia Parkinsons Disease - continue antibiotics - f/u cultures - IVF to keep CVP 8-12 - titrate pressors to maintain MAP >65 - trend LFTs - monitor urine output, creatinine - aspiration precautions - O2 to keep SPo2 >90% - monitor CBC - DVT/GI prophylaxis - continue ICU monitoring - prognosis guarded, pt DNR/DNI critical care time spent in reviewing chart, evaluating patient and formulating plan 35 min
[2018-06-25 12:30] LABS: ANISOCYTOSIS 1+; MACROCYTOSIS 1+; PLATELET ESTIMATE DECREASED
[2018-06-25] MEDS ORDERED: DEXTROSE 5%-WATER - 50 ML IVPB ONE ×2 (12:32→18:16)
[2018-06-25] MEDS ORDERED: PIPERACILLIN/TAZOBACTAM 2.25 GM VIAL IVPB ONE ×3 (12:32→18:26)
[2018-06-25] MEDS: PIPERACILLIN/TAZOB 2.25 GM 2.25 GM in DEXTROSE 5%-WATER - 50 ML IVPB SCH ×2 (12:35→18:59)
[2018-06-25] MEDS: BENZTROPINE MESYLATE 2 MG TABLET PO SCH ×2 (12:42→21:33)
[2018-06-25] MEDS: POLYETHYLENE GLYCOL 3350 119 GM BTL PO SCH (12:43)
--- NOTE | 2018-06-25 13:21 | PN ---
Progress Note, Physician History of Present Illness: Pt seen and examined at bedside. She remains in the ICU. Pt remains lethargic. - Current Medication List Current Medications: Active Medications Acetaminophen (Ofirmev Injection -) 1,000 mg IVPB Q6H [facility] Stop: 06/26/18 05:01 Last Admin: 06/25/18 11:19 Dose: 1,000 mg Aspirin (Asa -) 150 mg [place] DAILY [facility] Last Admin: 06/25/18 10:32 Dose: 150 mg Benztropine Mesylate (Cogentin -) 2 mg PO BID [facility] Last Admin: 06/25/18 12:42 Dose: Not Given Bisacodyl (Dulcolax Suppository -) 10 mg [place] PRN PRN PRN Reason: CONSTIPATION Chlorhexidine Gluconate (Hibiclens For Decolonization -) 1 applic TP HS [facility] Last Admin: 06/24/18 21:45 Dose: 1 applic Clonazepam (Klonopin -) 0.5 mg PO BID [facility] Last Admin: 06/25/18 10:35 Dose: Not Given Heparin Sodium (Porcine) (Heparin -) 5,000 unit SQ BID [facility] Last Admin: 06/25/18 10:33 Dose: 5,000 unit Norepinephrine Bitartrate 4, (000 mcg/ Dextrose) 500 mls @ 37.5 mls/hr IV TITR [facility]; Protocol Last Titration: 06/25/18 04:00 Dose: 3 mcg/min, 22.5 mls/hr Levofloxacin (Levaquin 250 Mg Premixed Ivpb -) 250 mg in 50 mls @ 50 mls/hr IVPB Q2D@1000 [facility]; Protocol Last Admin: 06/24/18 13:14 Dose: 50 mls/hr Famotidine/Sodium Chloride (Pepcid 20 Mg Premixed Ivpb -) 20 mg in 50 mls @ 100 mls/hr IVPB BID [facility] Last Admin: 06/25/18 10:33 Dose: 100 mls/hr Sodium Chloride (1/2 Normal Saline) 1,000 mls @ 83 mls/hr IV ASDIR [facility] Last Admin: 06/25/18 08:54 Dose: 83 mls/hr Piperacillin Sod/Tazobactam (Sod 2.25 gm/ Dextrose) 50 mls @ 100 mls/hr IVPB Q8H-IV [facility]; Protocol Last Admin: 06/25/18 12:35 Dose: 100 mls/hr Mupirocin (Bactroban Ointment (For Decolonization) -) 1 applic NS BID [facility] Stop: 06/28/18 21:59 Last Admin: 06/25/18 10:41 Dose: Not Given Polyethylene Glycol (Miralax (For Daily Use) -) 17 gm PO DAILY [facility] Last Admin: 06/25/18 12:43 Dose: Not Given Ranolazine (Ranexa -) 500 mg PO BID [facility] Last Admin: 06/25/18 10:33 Dose: 500 mg Tramadol HCl (Ultram -) 100 mg PO TID [facility] Last Admin: 06/25/18 05:53 Dose: 100 mg - Objective Vital Signs: Vital Signs Temperature 100.4 F H 06/25/18 08:00 Pulse Rate 77 06/25/18 10:00 Respiratory Rate 15 06/25/18 10:00 Blood Pressure 108/63 06/25/18 10:00 O2 Sat by Pulse Oximetry (%) 98 06/24/18 20:56 Constitutional: Yes: Calm, Mild Distress Eyes: Yes: Conjunctiva Clear HENT: Yes: Atraumatic Cardiovascular: Yes: S1, S2 Respiratory: Yes: On Venti-Mask Gastrointestinal: Yes: Soft Genitourinary: Yes: Saldaña Present Musculoskeletal: Yes: Muscle Weakness Edema: Yes Edema: LLE: 1+, RLE: 1+ Neurological: Yes: Lethargy Labs: CBC, BMP 06/25/18 05:30 06/25/18 05:30 INR, PTT INR 1.28 (0.83-1.09) H 06/23/18 19:00 Problem List - Problems (1) DIXON (acute kidney injury) Code(s): N17.9 - ACUTE KIDNEY FAILURE, UNSPECIFIED (2) Coronary artery disease Code(s): I25.10 - ATHSCL HEART DISEASE OF [place] CORONARY ARTERY W/O ANG PCTRS (3) Elevated troponin Code(s): R74.8 - ABNORMAL LEVELS OF OTHER SERUM ENZYMES (4) Hypernatremia Code(s): E87.0 - HYPEROSMOLALITY AND HYPERNATREMIA (5) Parkinson disease Code(s): G20 - PARKINSON'S DISEASE Assessment/Plan Current Medications Generic Name Dose Route Start Last Admin Trade Name Freq PRN Reason Stop Dose Admin Acetaminophen 1,000 mg 06/24/18 11:00 06/25/18 11:19 Ofirmev Injection - IVPB 06/26/18 05:01 1,000 mg Q6H [facility] Administration Aspirin 150 mg 06/24/18 10:00 06/25/18 10:32 Asa - [place] 150 mg DAILY [facility] Administration Benztropine Mesylate 2 mg 06/23/18 22:00 06/25/18 12:42 Cogentin - PO Not Given BID [facility] Bisacodyl 10 mg 06/25/18 10:06 Dulcolax Suppository - [place] PRN PRN CONSTIPATION Chlorhexidine Gluconate 1 applic 06/23/18 22:00 06/24/18 21:45 Hibiclens For Decolonization - TP 1 applic HS [facility] Administration Clonazepam 0.5 mg 06/23/18 22:00 06/25/18 10:35 Klonopin - PO Not Given BID [facility] Heparin Sodium (Porcine) 5,000 unit 06/23/18 22:00 06/25/18 10:33 Heparin - SQ 5,000 unit BID [facility] Administration Norepinephrine Bitartrate 4, 500 mls @ 37.5 mls/hr 06/23/18 21:15 06/25/18 04 :00 000 mcg/ Dextrose IV 3 mcg/min TITR [facility] 22.5 mls/hr Titration Protocol 5 MCG/MIN Levofloxacin 250 mg in 50 mls @ 50 mls/hr 06/24/18 12:00 06/24/18 13:14 Levaquin 250 Mg Premixed Ivpb - IVPB 50 mls/hr Q2D@1000 [facility] Administration Protocol Famotidine/Sodium Chloride 20 mg in 50 mls @ 100 mls/hr 06/24/18 11:45 10:33 Pepcid 20 Mg Premixed Ivpb - IVPB 100 mls/hr BID [facility] Administration Sodium Chloride 1,000 mls @ 83 mls/hr 06/25/18 08:00 06/25/18 08:54 1/2 Normal Saline IV 83 mls/hr ASDIR [facility] Administration Piperacillin Sod/Tazobactam 50 mls @ 100 mls/hr 06/25/18 11:45 06/25/18 12:35 Sod 2.25 gm/ Dextrose IVPB 100 mls/hr Q8H-IV [facility] Administration Protocol Mupirocin 1 applic 06/23/18 22:00 06/25/18 10:41 Bactroban Ointment (For Decolonization) - NS 06/28/18 21:59 Not Given BID [facility] Polyethylene Glycol 17 gm 06/25/18 10:15 06/25/18 12:43 Miralax (For Daily Use) - PO Not Given DAILY [facility] Ranolazine 500 mg 06/23/18 22:00 06/25/18 10:33 Ranexa - PO 500 mg BID [facility] Administration Tramadol HCl 100 mg 06/23/18 22:00 06/25/18 05:53 Ultram - PO 100 mg TID [facility] Administration Impression 1. DIXON 2. hypernatremia 3. sepsis 4. PNA 5. r/o UTI 6. lactic acidosis 7. parkinsons 8. positive troponins 9. HTN 10. HLD 11. mild hydro 12. renal cyst Plan - change fluids from ns to 1/2 ns - cont to monitor sodium - pt has ng tube and will start feeds today - creatinine is improving - monitor urine output - ICU will discuss GOC with family - consider urology eval for sono findings - urine sodium is low, cont fluids - likely atn from shock and sepsis - maintain saldaña and monitor output - monitor in ICU - will follow Dr Gonsalez
--- NOTE | 2018-06-25 17:07 | PN ---
Progress Note, Physician History of Present Illness: More awake. Opens eyes to verbal stimulus Remains hypotensive on pressors Still febrile WBC improved Thrombocytopenia worse BC (-) Urine c/s LF - Current Medication List Current Medications: Active Medications Acetaminophen (Ofirmev Injection -) 1,000 mg IVPB Q6H [facility] Stop: 06/26/18 05:01 Last Admin: 06/25/18 16:38 Dose: 1,000 mg Aspirin (Asa -) 150 mg ID DAILY [facility] Last Admin: 06/25/18 10:32 Dose: 150 mg Benztropine Mesylate (Cogentin -) 2 mg PO BID [facility] Last Admin: 06/25/18 12:42 Dose: Not Given Bisacodyl (Dulcolax Suppository -) 10 mg ID PRN PRN PRN Reason: CONSTIPATION Chlorhexidine Gluconate (Hibiclens For Decolonization -) 1 applic TP HS [facility] Last Admin: 06/24/18 21:45 Dose: 1 applic Clonazepam (Klonopin -) 0.5 mg PO BID [facility] Last Admin: 06/25/18 10:35 Dose: Not Given Heparin Sodium (Porcine) (Heparin -) 5,000 unit SQ BID [facility] Last Admin: 06/25/18 10:33 Dose: 5,000 unit Norepinephrine Bitartrate 4, (000 mcg/ Dextrose) 500 mls @ 37.5 mls/hr IV TITR [facility]; Protocol Last Titration: 06/25/18 16:17 Dose: 2 mcg/min, 15 mls/hr Levofloxacin (Levaquin 250 Mg Premixed Ivpb -) 250 mg in 50 mls @ 50 mls/hr IVPB Q2D@1000 [facility]; Protocol Last Admin: 06/24/18 13:14 Dose: 50 mls/hr Famotidine/Sodium Chloride (Pepcid 20 Mg Premixed Ivpb -) 20 mg in 50 mls @ 100 mls/hr IVPB BID [facility] Last Admin: 06/25/18 10:33 Dose: 100 mls/hr Sodium Chloride (1/2 Normal Saline) 1,000 mls @ 83 mls/hr IV ASDIR [facility] Last Admin: 06/25/18 08:54 Dose: 83 mls/hr Piperacillin Sod/Tazobactam (Sod 2.25 gm/ Dextrose) 50 mls @ 100 mls/hr IVPB Q8H-IV [facility]; Protocol Last Admin: 06/25/18 12:35 Dose: 100 mls/hr Mupirocin (Bactroban Ointment (For Decolonization) -) 1 applic NS BID [facility] Stop: 06/28/18 21:59 Last Admin: 06/25/18 10:41 Dose: Not Given Polyethylene Glycol (Miralax (For Daily Use) -) 17 gm PO DAILY [facility] Last Admin: 06/25/18 12:43 Dose: Not Given Ranolazine (Ranexa -) 500 mg PO BID [facility] Last Admin: 06/25/18 10:33 Dose: 500 mg Tramadol HCl (Ultram -) 100 mg PO TID [facility] Last Admin: 06/25/18 05:53 Dose: 100 mg - Objective Vital Signs: Vital Signs Temperature 100.9 F H 06/25/18 14:40 Pulse Rate 75 06/25/18 16:17 Respiratory Rate 20 06/25/18 13:33 Blood Pressure 121/63 06/25/18 16:17 O2 Sat by Pulse Oximetry (%) 100 06/25/18 15:28 Constitutional: Yes: No Distress, Cachectic Cardiovascular: Yes: Regular Rate and Rhythm, S1, S2 Respiratory: Yes: Diminished Gastrointestinal: Yes: Normal Bowel Sounds, Soft. No: Tenderness Edema: Yes Labs: CBC, BMP 06/25/18 05:30 06/25/18 05:30 INR, PTT INR 1.28 (0.83-1.09) H 06/23/18 19:00 Assessment/Plan Septic shock Bibasilar Pneumonia UTI Renal failure Elevated LFTs Lactic acidosis Parkinsonism OBS Continue empiric zosyn/ levaquin Pressors Hemodynamic monitoring Prognosis guarded Critical care time 35min
[2018-06-25] MEDS ORDERED: FUROSEMIDE 40 MG/4 ML INJECTABLE VIAL IVPUSH ONE (18:02)
[2018-06-25] MEDS ORDERED: MORPHINE SULFATE 2 MG/ML VIAL IVPUSH ONE (18:15)
--- NOTE | 2018-06-25 19:22 | PN ---
Progress Note (short form) - Note Progress Note: Patient had an episode of tachypena which progressed to bradypnea. She also became pale diaphoretic and clammy with a prolonged expiratory phase. STAT CXR done which shows a worsening left sided infiltrate which could be due to worsening volume overload spoke with son and discussed giving lasix and morphine for respiratory comfort even at the expense of her BP. She is DNR/DNI and they would like her comfortable Discussed with Dr. Coffey
[2018-06-25] MEDS: NOREPINEPHRINE BITARTRATE 4,000 MCG in DEXTROSE 5%-WATER - 496 ML IV SCH (21:33)
[2018-06-25] MEDS: CHLORHEXIDINE GLUCONATE 4% CLEANSER FOR DECOLONIZATION TP SCH (21:34)
[2018-06-26] MEDS ORDERED: PIPERACILLIN/TAZOBACTAM 2.25 GM VIAL IVPB ONE ×3 (03:03→18:52)
[2018-06-26] MEDS ORDERED: DEXTROSE 5%-WATER - 50 ML IVPB ONE ×3 (03:03→18:52)
[2018-06-26] MEDS: PIPERACILLIN/TAZOB 2.25 GM 2.25 GM in DEXTROSE 5%-WATER - 50 ML IVPB SCH ×3 (03:07→18:54)
[2018-06-26] MEDS: ACETAMINOPHEN 1000 MG/100 ML VIAL (NON FORMULARY) IVPB SCH (05:00)
[2018-06-26] MEDS: traMADol HCL 50 MG TABLET PO SCH ×3 (05:25→21:54)
[2018-06-26 06:53] LABS: ALK PHOS 136 U/L (45-117); ANION GAP 7 MMOL/L (8-16); BILIRUBIN,TOTAL 1.5 mg/dL (0.2-1); BLOOD UREA NITROGEN 101 mg/dL (7-18); CALCIUM 7.4 mg/dL (8.5-10.1); CHLORIDE 126 mmol/L (98-107); CO2 25 mmol/L (21-32); CREATININE 3.2 mg/dL (0.55-1.3); GLUCOSE,RANDOM 94 mg/dL (74-106); MAGNESIUM 2.5 mg/dL (1.8-2.4); PHOSPHOROUS 4.7 mg/dL (2.5-4.9); POTASSIUM 3.2 mmol/L (3.5-5.1); SGOT/AST 114 U/L (15-37); SGPT/ALT 147 U/L (13-61); SODIUM 158 mmol/L (136-145); TOT PROT 4.8 g/dl (6.4-8.2)
--- NOTE | 2018-06-26 07:25 | PN ---
Physical Exam: SUBJECTIVE: Patient seen and examined. Patient aphasic. OBJECTIVE: Vital Signs Period Temp Pulse Resp BP Sys/Younger Pulse Ox Last 24 Hr 99.1 F-100.9 F 62-78 11-22 97-121/49-63 96-100 GENERAL: Somnolent, withdraws to tactile stimuli and intermittent vocalization ( per son pt non-verbal at baseline but generally vocalizes) HEAD: No signs of trauma, normocephalic, atraumatic EYES: PERRLA, EOMI, sclera anicteric, conjunctiva clear ENT: NGT in place; Hearing grossly normal, nares patent, oropharynx clear without exudates NECK: R IJ in place, supple LUNGS: LLL crackles, diffuse decreased breath sounds and poor inspiratory effort , protecting airway, no tachypnea HEART: Regular rate and rhythm, normal S1 and S2, no murmurs appreciated, peripheral pulses normal and equal bilaterally ABDOMEN: Soft, non-distended; normoactive bowel sounds. EXTREMITIES : no edema. No clubbing or cyanosis NEUROLOGICAL: Withdraws to painful stimuli, not alert, unable to assess orientation SKIN: Warm, Dry Active Medications Generic Name Dose Route Start Last Admin Trade Name Freq PRN Reason Stop Dose Admin Aspirin 150 mg 06/24/18 10:00 06/25/18 10:32 Asa - [place] 150 mg DAILY [facility] Administration Benztropine Mesylate 2 mg 06/23/18 22:00 06/25/18 12:42 Cogentin - PO Not Given BID [facility] Bisacodyl 10 mg 06/25/18 10:06 Dulcolax Suppository - [place] PRN PRN CONSTIPATION Chlorhexidine Gluconate 1 applic 06/23/18 22:00 06/25/18 21:34 Hibiclens For Decolonization - TP 1 applic HS [facility] Administration Clonazepam 0.5 mg 06/23/18 22:00 06/25/18 21:34 Klonopin - PO Not Given BID [facility] Heparin Sodium (Porcine) 5,000 unit 06/23/18 22:00 06/25/18 21:32 Heparin - SQ 5,000 unit BID [facility] Administration Norepinephrine Bitartrate 4, 500 mls @ 37.5 mls/hr 06/23/18 21:15 06/26/18 05 :00 000 mcg/ Dextrose IV 1 mcg/min TITR [facility] 7.5 mls/hr Titration Protocol 5 MCG/MIN Levofloxacin 250 mg in 50 mls @ 50 mls/hr 06/24/18 12:00 06/24/18 13:14 Levaquin 250 Mg Premixed Ivpb - IVPB 50 mls/hr Q2D@1000 [facility] Administration Protocol Famotidine/Sodium Chloride 20 mg in 50 mls @ 100 mls/hr 06/24/18 11:45 21:32 Pepcid 20 Mg Premixed Ivpb - IVPB 100 mls/hr BID [facility] Administration Sodium Chloride 1,000 mls @ 83 mls/hr 06/25/18 08:00 06/25/18 22:00 1/2 Normal Saline IV 83 mls/hr ASDIR [facility] Administration Piperacillin Sod/Tazobactam 50 mls @ 100 mls/hr 06/25/18 11:45 06/26/18 03:07 Sod 2.25 gm/ Dextrose IVPB 100 mls/hr Q8H-IV [facility] Administration Protocol Mupirocin 1 applic 06/23/18 22:00 06/25/18 21:34 Bactroban Ointment (For Decolonization) - NS 06/28/18 21:59 1 applic BID [facility] Administration Polyethylene Glycol 17 gm 06/25/18 10:15 06/25/18 12:43 Miralax (For Daily Use) - PO Not Given DAILY [facility] Ranolazine 500 mg 06/23/18 22:00 06/25/18 21:34 Ranexa - PO 500 mg BID [facility] Administration Tramadol HCl 100 mg 06/23/18 22:00 06/26/18 05:25 Ultram - PO 100 mg TID [facility] Administration ASSESSMENT/PLAN: 77F with septic shock secondary to pneumonia. Neuro Anxiety -Klonopin BID Acute Pain -Tramadol PRN through NG tube CV HTN hx Hypotension -currently on levophed due to septic shock-hold antihypertensives -Pressors to be titrated to MAP > 65 -Will continue to resuscitate with IVF A-fib -continue Aspirin -Currently rate controlled GI Protonix for GI PPx KUB did not show free air Nutrition -TF continued now that pressor usage has decreased -Reordered per most recent Director Of Construction recommendations -On bowel regimen KARIN fernandezey with decent urine output and some sediment -Will continue to monitory Uop and Cr Electrolytes Hypernatremia -Improving -IVF per nephrology Hypokalemia -Repleted HEME Hgb 10.8 -> 10.1 DVT Ppx SQ hep ID continue Abx per ID -on Zosyn & Levaquin -urine antigens negative -Patient afebrile today LTD R KALA (06/23/2018) Tanvir (06/23/2018) - to be changed today Dispo: Patient on levophed. Will continue to require ICU care DNR/DNI Visit type - Emergency Visit Emergency Visit: Yes ED Registration Date: 06/23/18 Care time: The patient presented to the Emergency Department on the above date and was hospitalized for further evaluation of their emergent condition. - New Patient This patient is new to me today: No - Critical Care Critical Care patient: Yes Total Critical Care Time (in minutes): 45 Critical Care Statement: The care of this patient involved high complexity decision making to prevent further life threatening deterioration of the patient 's condition and/or to evaluate & treat vital organ system(s) failure or risk of failure.
[2018-06-26 09:13] LABS: BASO % 0.3 % (0-2.0); EOS % 0.5 % (0-4.5); HEMATOCRIT 32.1 % (32.4-45.2); HEMOGLOBIN 10.1 GM/dL (10.7-15.3); LYMPH % 5.2 % (8-40); MCHC 31.6 g/dl (32.0-36.0); MEAN CELL VOLUME 91.7 fl (80-96); MEAN PLT VOLUME 12.2 fl (7.5-11.1); MONO % 1.4 % (3.8-10.2); NEUT % 92.6 % (42.8-82.8); PLATELET COUNT 60 K/MM3 (134-434); RDW 15.3 % (11.6-15.6); WHITE BLOOD COUNT 12.7 K/mm3 (4.0-10.0)
--- NOTE | 2018-06-26 09:13 | PN ---
Progress Note, Physician Chief Complaint: Remains on Pressors Unresponsive to verbal commands TELE: NSR w/ artifact. History of Present Illness: still febrile. - Current Medication List Current Medications: Active Medications Aspirin (Asa -) 150 mg IN DAILY [facility] Last Admin: 06/25/18 10:32 Dose: 150 mg Benztropine Mesylate (Cogentin -) 2 mg PO BID [facility] Last Admin: 06/25/18 12:42 Dose: Not Given Bisacodyl (Dulcolax Suppository -) 10 mg IN PRN PRN PRN Reason: CONSTIPATION Chlorhexidine Gluconate (Hibiclens For Decolonization -) 1 applic TP HS [facility] Last Admin: 06/25/18 21:34 Dose: 1 applic Clonazepam (Klonopin -) 0.5 mg PO BID [facility] Last Admin: 06/25/18 21:34 Dose: Not Given Heparin Sodium (Porcine) (Heparin -) 5,000 unit SQ BID [facility] Last Admin: 06/25/18 21:32 Dose: 5,000 unit Norepinephrine Bitartrate 4, (000 mcg/ Dextrose) 500 mls @ 37.5 mls/hr IV TITR [facility]; Protocol Last Titration: 06/26/18 05:00 Dose: 1 mcg/min, 7.5 mls/hr Levofloxacin (Levaquin 250 Mg Premixed Ivpb -) 250 mg in 50 mls @ 50 mls/hr IVPB Q2D@1000 [facility]; Protocol Last Admin: 06/24/18 13:14 Dose: 50 mls/hr Famotidine/Sodium Chloride (Pepcid 20 Mg Premixed Ivpb -) 20 mg in 50 mls @ 100 mls/hr IVPB BID [facility] Last Admin: 06/25/18 21:32 Dose: 100 mls/hr Sodium Chloride (1/2 Normal Saline) 1,000 mls @ 83 mls/hr IV ASDIR [facility] Last Admin: 06/25/18 22:00 Dose: 83 mls/hr Piperacillin Sod/Tazobactam (Sod 2.25 gm/ Dextrose) 50 mls @ 100 mls/hr IVPB Q8H-IV [facility]; Protocol Last Admin: 06/26/18 03:07 Dose: 100 mls/hr Mupirocin (Bactroban Ointment (For Decolonization) -) 1 applic NS BID [facility] Stop: 06/28/18 21:59 Last Admin: 06/25/18 21:34 Dose: 1 applic Polyethylene Glycol (Miralax (For Daily Use) -) 17 gm PO DAILY [facility] Last Admin: 06/25/18 12:43 Dose: Not Given Ranolazine (Ranexa -) 500 mg PO BID [facility] Last Admin: 06/25/18 21:34 Dose: 500 mg Tramadol HCl (Ultram -) 100 mg PO TID [facility] Last Admin: 06/26/18 05:25 Dose: 100 mg - Objective Vital Signs: Vital Signs Temperature 100.0 F H 06/26/18 08:00 Pulse Rate 59 L 06/26/18 08:00 Respiratory Rate 16 06/26/18 08:00 Blood Pressure 97/50 L 06/26/18 08:00 O2 Sat by Pulse Oximetry (%) 100 06/26/18 08:00 Cardiovascular: Yes: Regular Rate and Rhythm Respiratory: Yes: Other (no rales or wheezing.) Gastrointestinal: Yes: Soft Edema: Yes Edema: LLE: 1+, RLE: 1+ Labs: CBC, BMP 06/26/18 05:30 INR, PTT INR 1.28 (0.83-1.09) H 06/23/18 19:00 Laboratory Tests 06/25/18 06/25/18 06/26/18 05:30 05:30 05:30 WBC Pending Hgb Pending Hct Pending Plt Count 62 L Pending Sodium Potassium BUN Creatinine Magnesium Total Bilirubin AST Alkaline Phosphatase Troponin I 1.84 H* 06/26/18 05:30 WBC Hgb Hct Plt Count Sodium 158 H Potassium 3.2 L BUN 101 H Creatinine 3.2 H Magnesium 2.5 H Total Bilirubin 1.5 H AST 114 H Alkaline Phosphatase 136 H Troponin I - ....Imaging EKG: Image Reviewed Problem List - Problems (1) Sepsis Code(s): A41.9 - SEPSIS, UNSPECIFIED ORGANISM Qualifiers: Sepsis type: sepsis due to unspecified organism Qualified Code(s): A41.9 - Sepsis, unspecified organism (2) DIXON (acute kidney injury) Code(s): N17.9 - ACUTE KIDNEY FAILURE, UNSPECIFIED (3) Elevated troponin Code(s): R74.8 - ABNORMAL LEVELS OF OTHER SERUM ENZYMES (4) Hypernatremia Code(s): E87.0 - HYPEROSMOLALITY AND HYPERNATREMIA (5) Coronary artery disease Code(s): I25.10 - ATHSCL HEART DISEASE OF [place] CORONARY ARTERY W/O ANG PCTRS (6) DNR (do not resuscitate) Code(s): Z66 - DO NOT RESUSCITATE Assessment/Plan IMP: Severe sepsis, septic shock with multisystem organ failure Advanced Parkinson's CAD w/ prior PCI Elevated TnI: secondary to demand ischemia in setting hypotension due to severe septic shock DNR/DNI REC: 1. Pressors to maintain MAP 60mmHg 2. Broad spectrum abx as per Critical Care Team: now on Vanc and Zosyn; follow cultures 3. DVT and GI prophylaxis 4. Add ASA 81mg daily via NGT or per rectum. Would not begin Heparin gtts or Plavix in setting of low platelets (sepsis) 5. Echo with hyperdynamic LV c/w volume depletion/sepsis. 6. Supportive measures for Rx of sepsis and comfort as per family wishes.
[2018-06-26] MEDS: MUPIROCIN 2% TOPICAL OINTMENT FOR DECOLONIZATION NS SCH ×2 (10:15→22:01)
[2018-06-26] MEDS: RANOLAZINE E.R. 500 MG TABLET (FP) PO SCH ×2 (10:30→21:58)
[2018-06-26] MEDS: BENZTROPINE MESYLATE 2 MG TABLET PO SCH ×2 (10:32→22:00)
[2018-06-26] MEDS: FAMOTIDINE 20 MG/50 ML IVPB 20 MG/50 ML MG IVPB SCH ×2 (10:45→21:56)
[2018-06-26] MEDS: ASPIRIN 300 MG SUPP.RECT PR SCH (10:53)
[2018-06-26] MEDS: HEPARIN NA (PORCINE) 5,000 UNITS/ML 1ML VIAL SQ SCH ×2 (10:54→21:58)
[2018-06-26] MEDS: clonazePAM 0.5 MG TABLET PO SCH ×2 (10:56→21:58)
[2018-06-26] MEDS: POLYETHYLENE GLYCOL 3350 119 GM BTL PO SCH (10:58)
[2018-06-26] MEDS: SODIUM CHLORIDE 0.45% 1,000 ML IV SCH (11:12)
[2018-06-26] MEDS ORDERED: PT OWN MED DRAWER 7, Y5N ONE ×2 (11:29→20:35)
--- NOTE | 2018-06-26 11:54 | PN ---
Progress Note, Physician Chief Complaint: patient seen and examined in icu DNR DNI on pressors and iv abx ng tube - Current Medication List Current Medications: Active Medications Aspirin (Asa -) 150 mg [place] DAILY [facility] Last Admin: 06/26/18 10:53 Dose: 150 mg Benztropine Mesylate (Cogentin -) 2 mg PO BID [facility] Last Admin: 06/26/18 10:32 Dose: 2 mg Bisacodyl (Dulcolax Suppository -) 10 mg [place] PRN PRN PRN Reason: CONSTIPATION Chlorhexidine Gluconate (Hibiclens For Decolonization -) 1 applic TP HS [facility] Last Admin: 06/25/18 21:34 Dose: 1 applic Clonazepam (Klonopin -) 0.5 mg PO BID [facility] Last Admin: 06/26/18 10:56 Dose: Not Given Heparin Sodium (Porcine) (Heparin -) 5,000 unit SQ BID [facility] Last Admin: 06/26/18 10:54 Dose: 5,000 unit Norepinephrine Bitartrate 4, (000 mcg/ Dextrose) 500 mls @ 37.5 mls/hr IV TITR [facility]; Protocol Last Titration: 06/26/18 05:00 Dose: 1 mcg/min, 7.5 mls/hr Levofloxacin (Levaquin 250 Mg Premixed Ivpb -) 250 mg in 50 mls @ 50 mls/hr IVPB Q2D@1000 [facility]; Protocol Last Admin: 06/26/18 10:49 Dose: 50 mls/hr Famotidine/Sodium Chloride (Pepcid 20 Mg Premixed Ivpb -) 20 mg in 50 mls @ 100 mls/hr IVPB BID [facility] Last Admin: 06/26/18 10:45 Dose: 100 mls/hr Sodium Chloride (1/2 Normal Saline) 1,000 mls @ 83 mls/hr IV ASDIR [facility] Last Admin: 06/26/18 11:12 Dose: 83 mls/hr Piperacillin Sod/Tazobactam (Sod 2.25 gm/ Dextrose) 50 mls @ 100 mls/hr IVPB Q8H-IV [facility]; Protocol Last Admin: 06/26/18 10:48 Dose: 100 mls/hr Mupirocin (Bactroban Ointment (For Decolonization) -) 1 applic NS BID [facility] Stop: 06/28/18 21:59 Last Admin: 06/26/18 10:15 Dose: 1 applic Polyethylene Glycol (Miralax (For Daily Use) -) 17 gm PO DAILY [facility] Last Admin: 06/26/18 10:58 Dose: Not Given Potassium Chloride (Potassium Chloride Oral Liquid) 20 meq PO ONCE ONE Stop: 06/26/18 11:49 Ranolazine (Ranexa -) 500 mg PO BID [facility] Last Admin: 06/26/18 10:30 Dose: 500 mg Tramadol HCl (Ultram -) 100 mg PO TID [facility] Last Admin: 06/26/18 05:25 Dose: 100 mg - Objective Vital Signs: Vital Signs Temperature 99.8 F H 06/26/18 10:00 Pulse Rate 61 06/26/18 10:00 Respiratory Rate 65 H 06/26/18 10:00 Blood Pressure 116/60 06/26/18 10:00 O2 Sat by Pulse Oximetry (%) 100 06/26/18 09:00 Constitutional: Yes: Thin HENT: Yes: Other (n g tube) Cardiovascular: Yes: Regular Rate and Rhythm, S1, S2 Respiratory: Yes: Diminished Gastrointestinal: Yes: Normal Bowel Sounds, Soft Genitourinary: Yes: [place] Present Edema: No Labs: CBC, BMP 06/26/18 05:30 06/26/18 05:30 INR, PTT INR 1.28 (0.83-1.09) H 06/23/18 19:00 Problem List - Problems (1) DIXON (acute kidney injury) Assessment/Plan: cr slightly better renal on board hypokalemia -repleted Code(s): N17.9 - ACUTE KIDNEY FAILURE, UNSPECIFIED (2) Hypernatremia Assessment/Plan: 1/2 NS fluids Code(s): E87.0 - HYPEROSMOLALITY AND HYPERNATREMIA (3) Sepsis Assessment/Plan: levophed abx- bibasilar PNA levaquin and zosyn gi dvt ppx ng tube for feeds - nepro Code(s): A41.9 - SEPSIS, UNSPECIFIED ORGANISM Qualifiers: Sepsis type: sepsis due to unspecified organism Qualified Code(s): A41.9 - Sepsis, unspecified organism (4) Elevated troponin Assessment/Plan: secondary to demand ischemia and hypotension started on aspirin echo done Code(s): R74.8 - ABNORMAL LEVELS OF OTHER SERUM ENZYMES
[2018-06-26 11:56] LABS: ANISOCYTOSIS 0; HELMET CELLS 0; HOWELL-JOLLY BODIES 0; MACROCYTOSIS 0; OVALOCYTE 0; PLATELET ESTIMATE DECREASED; ROULEAU 0; SICKELED CELLS 0; TARGET CELLS 0; TEAR DROP CELLS 0; TOXIC GRANULATION 0
[2018-06-26] MEDS ORDERED: POTASSIUM CHLORIDE ORAL LIQUID 20 MEQ/15 ML PO ONE ×2 (12:00→14:14)
[2018-06-26] MEDS ORDERED: LACTATED RINGERS SOLUTION 1,000 ML/1,000 ML INFUS.BAG IV SCH (12:00)
--- NOTE | 2018-06-26 12:23 | PN ---
Teaching Attending Note Name of Resident: Talon Nicholas ATTENDING PHYSICIAN STATEMENT I saw and evaluated the patient. I reviewed the resident's note and discussed the case with the resident. I agree with the resident's findings and plan as documented. SUBJECTIVE: Patient seen and examined in the ICU. Remains lethargic. Not able to answer questions. Still on low dose NE (2 mcq) for hemodynamic support. OBJECTIVE: Intake & Output 06/23/18 06/24/18 06/25/18 06/26/18 23:59 23:59 23:59 23:59 Intake Total 4000 2285 1920 1314 Output Total 964 721 7930 1700 Balance 3850 1335 -80 -386 Weight 119 lb 118 lb 6.4 oz 118 lb Last Vital Signs Temp Pulse Resp BP Pulse Ox 99.8 F H 61 65 H 116/60 100 06/26/18 10:00 06/26/18 10:00 06/26/18 10:00 06/26/18 10:00 06/26/18 09:00 Active Medications Aspirin (Asa -) 150 mg [place] DAILY [facility] Last Admin: 06/26/18 10:53 Dose: 150 mg Benztropine Mesylate (Cogentin -) 2 mg PO BID [facility] Last Admin: 06/26/18 10:32 Dose: 2 mg Bisacodyl (Dulcolax Suppository -) 10 mg [place] PRN PRN PRN Reason: CONSTIPATION Chlorhexidine Gluconate (Hibiclens For Decolonization -) 1 applic TP HS [facility] Last Admin: 06/25/18 21:34 Dose: 1 applic Clonazepam (Klonopin -) 0.5 mg PO BID [facility] Last Admin: 06/26/18 10:56 Dose: Not Given Heparin Sodium (Porcine) (Heparin -) 5,000 unit SQ BID [facility] Last Admin: 06/26/18 10:54 Dose: 5,000 unit Norepinephrine Bitartrate 4, (000 mcg/ Dextrose) 500 mls @ 37.5 mls/hr IV TITR [facility]; Protocol Last Titration: 06/26/18 05:00 Dose: 1 mcg/min, 7.5 mls/hr Levofloxacin (Levaquin 250 Mg Premixed Ivpb -) 250 mg in 50 mls @ 50 mls/hr IVPB Q2D@1000 [facility]; Protocol Last Admin: 06/26/18 10:49 Dose: 50 mls/hr Famotidine/Sodium Chloride (Pepcid 20 Mg Premixed Ivpb -) 20 mg in 50 mls @ 100 mls/hr IVPB BID [facility] Last Admin: 06/26/18 10:45 Dose: 100 mls/hr Piperacillin Sod/Tazobactam (Sod 2.25 gm/ Dextrose) 50 mls @ 100 mls/hr IVPB Q8H-IV [facility]; Protocol Last Admin: 06/26/18 10:48 Dose: 100 mls/hr Lactated Ringer's (Lactated Ringers Solution) 1,000 ml in 1,000 mls @ 75 mls/ hr IV ASDIR [facility] Last Admin: 06/26/18 12:01 Dose: 75 mls/hr Mupirocin (Bactroban Ointment (For Decolonization) -) 1 applic NS BID [facility] Stop: 06/28/18 21:59 Last Admin: 06/26/18 10:15 Dose: 1 applic Polyethylene Glycol (Miralax (For Daily Use) -) 17 gm PO DAILY [facility] Last Admin: 06/26/18 10:58 Dose: Not Given Ranolazine (Ranexa -) 500 mg PO BID [facility] Last Admin: 06/26/18 10:30 Dose: 500 mg Tramadol HCl (Ultram -) 100 mg PO TID [facility] Last Admin: 06/26/18 05:25 Dose: 100 mg Gen: lethargic Heart: RRR Lung: scattered rhonchi Abd: soft, nontender Ext: no edema Laboratory Results - last 24 hr 06/25/18 06/26/18 06/26/18 05:30 05:30 05:30 WBC 12.7 H RBC 3.50 L Hgb 10.1 L Hct 32.1 L MCV 91.7 MCH 29.0 MCHC 31.6 L RDW 15.3 Plt Count 60 L MPV 12.2 H D Absolute Neuts (auto) 11.8 H Neutrophils % 92.6 H Neutrophils % (Manual) 92.0 H Band Neutrophils % 3.0 Lymphocytes % 5.2 L Lymphocytes % (Manual) 3.0 L D Monocytes % 1.4 L Monocytes % (Manual) 1 L Eosinophils % 0.5 Eosinophils % (Manual) 0.0 Basophils % 0.3 Basophils % (Manual) 0.0 Myelocytes % (Man) 0 Promyelocytes % (Man) 0 Blast Cells % (Manual) 0 Nucleated RBC % 0 Metamyelocytes 1 D Hypochromia 0 Platelet Estimate Decreased Polychromasia 0 Poikilocytosis 0 Anisocytosis 1+ Microcytosis 0 Macrocytosis 1+ Sodium Potassium Chloride Carbon Dioxide Anion Gap BUN Creatinine Creat Clearance w eGFR Random Glucose Calcium Phosphorus Magnesium Total Bilirubin AST ALT Alkaline Phosphatase Total Protein Albumin Random Vancomycin 16.2 L 06/26/18 05:30 WBC RBC Hgb Hct MCV MCH MCHC RDW Plt Count MPV Absolute Neuts (auto) Neutrophils % Neutrophils % (Manual) Band Neutrophils % Lymphocytes % Lymphocytes % (Manual) Monocytes % Monocytes % (Manual) Eosinophils % Eosinophils % (Manual) Basophils % Basophils % (Manual) Myelocytes % (Man) Promyelocytes % (Man) Blast Cells % (Manual) Nucleated RBC % Metamyelocytes Hypochromia Platelet Estimate Polychromasia Poikilocytosis Anisocytosis Microcytosis Macrocytosis Sodium 158 H Potassium 3.2 L Chloride 126 H Carbon Dioxide 25 Anion Gap 7 L BUN 101 H Creatinine 3.2 H Creat Clearance w eGFR 14.08 Random Glucose 94 Calcium 7.4 L Phosphorus 4.7 Magnesium 2.5 H Total Bilirubin 1.5 H AST 114 H ALT 147 H Alkaline Phosphatase 136 H Total Protein 4.8 L Albumin 2.0 L Random Vancomycin ASSESSMENT AND PLAN: Pneumonia likely Aspiration r/o UTI Septic Shock Acute Kidney Injury Hypernatremia Lactic Acidosis Elevated LFTs likely Ischemic Injury +Troponins likely Demand Ischemia Thrombocytopenia HTN Hyperlipidemia Parkinsons Disease - continue antibiotics - f/u cultures - IVF to keep CVP 8-12 - titrate pressors to maintain MAP >65 - trend LFTs - monitor urine output, creatinine - aspiration precautions - O2 to keep SPo2 >90% - monitor CBC - DVT/GI prophylaxis - continue ICU monitoring - prognosis guarded, pt DNR/DNI Dr Garcia Critical care time spent in reviewing chart, evaluating patient and formulating plan 35 min
--- NOTE | 2018-06-26 14:12 | PN ---
Progress Note, Physician History of Present Illness: Pt seen and examined at bedside. She remains in the ICU. Family are at bedside. No great change in status. She remains lethargic. She will start tube feeds today. - Current Medication List Current Medications: Active Medications Aspirin (Asa -) 150 mg [place] DAILY [facility] Last Admin: 06/26/18 10:53 Dose: 150 mg Benztropine Mesylate (Cogentin -) 2 mg PO BID [facility] Last Admin: 06/26/18 10:32 Dose: 2 mg Bisacodyl (Dulcolax Suppository -) 10 mg [place] PRN PRN PRN Reason: CONSTIPATION Chlorhexidine Gluconate (Hibiclens For Decolonization -) 1 applic TP HS [facility] Last Admin: 06/25/18 21:34 Dose: 1 applic Clonazepam (Klonopin -) 0.5 mg PO BID [facility] Last Admin: 06/26/18 10:56 Dose: Not Given Heparin Sodium (Porcine) (Heparin -) 5,000 unit SQ BID [facility] Last Admin: 06/26/18 10:54 Dose: 5,000 unit Norepinephrine Bitartrate 4, (000 mcg/ Dextrose) 500 mls @ 37.5 mls/hr IV TITR [facility]; Protocol Last Titration: 06/26/18 05:00 Dose: 1 mcg/min, 7.5 mls/hr Levofloxacin (Levaquin 250 Mg Premixed Ivpb -) 250 mg in 50 mls @ 50 mls/hr IVPB Q2D@1000 [facility]; Protocol Last Admin: 06/26/18 10:49 Dose: 50 mls/hr Famotidine/Sodium Chloride (Pepcid 20 Mg Premixed Ivpb -) 20 mg in 50 mls @ 100 mls/hr IVPB BID [facility] Last Admin: 06/26/18 10:45 Dose: 100 mls/hr Piperacillin Sod/Tazobactam (Sod 2.25 gm/ Dextrose) 50 mls @ 100 mls/hr IVPB Q8H-IV [facility]; Protocol Last Admin: 06/26/18 10:48 Dose: 100 mls/hr Lactated Ringer's (Lactated Ringers Solution) 1,000 ml in 1,000 mls @ 75 mls/ hr IV ASDIR [facility] Last Admin: 06/26/18 12:01 Dose: 75 mls/hr Mupirocin (Bactroban Ointment (For Decolonization) -) 1 applic NS BID [facility] Stop: 06/28/18 21:59 Last Admin: 06/26/18 10:15 Dose: 1 applic Polyethylene Glycol (Miralax (For Daily Use) -) 17 gm PO DAILY [facility] Last Admin: 06/26/18 10:58 Dose: Not Given Ranolazine (Ranexa -) 500 mg PO BID [facility] Last Admin: 06/26/18 10:30 Dose: 500 mg Tramadol HCl (Ultram -) 100 mg PO TID [facility] Last Admin: 06/26/18 05:25 Dose: 100 mg - Objective Vital Signs: Vital Signs Temperature 99.7 F H 06/26/18 12:00 Pulse Rate 59 L 06/26/18 12:00 Respiratory Rate 25 H 06/26/18 12:00 Blood Pressure 100/59 L 06/26/18 12:00 O2 Sat by Pulse Oximetry (%) 100 06/26/18 09:00 Constitutional: Yes: Mild Distress Cardiovascular: Yes: S1, S2 Respiratory: Yes: On Venti-Mask Gastrointestinal: Yes: Soft Genitourinary: Yes: Salda[place] Present Musculoskeletal: Yes: Muscle Weakness Edema: Yes Edema: LLE: 1+, RLE: 1+ Integumentary: No: Rash Neurological: Yes: Lethargy Labs: CBC, BMP 06/26/18 05:30 06/26/18 05:30 INR, PTT INR 1.28 (0.83-1.09) H 06/23/18 19:00 Problem List - Problems (1) DIXON (acute kidney injury) Code(s): N17.9 - ACUTE KIDNEY FAILURE, UNSPECIFIED (2) Coronary artery disease Code(s): I25.10 - ATHSCL HEART DISEASE OF [place] CORONARY ARTERY W/O ANG PCTRS (3) Elevated troponin Code(s): R74.8 - ABNORMAL LEVELS OF OTHER SERUM ENZYMES (4) Hypernatremia Code(s): E87.0 - HYPEROSMOLALITY AND HYPERNATREMIA (5) Parkinson disease Code(s): G20 - PARKINSON'S DISEASE Assessment/Plan Current Medications Generic Name Dose Route Start Last Admin Trade Name Freq PRN Reason Stop Dose Admin Aspirin 150 mg 06/24/18 10:00 06/26/18 10:53 Asa - [place] 150 mg DAILY [facility] Administration Benztropine Mesylate 2 mg 06/23/18 22:00 06/26/18 10:32 Cogentin - PO 2 mg BID [facility] Administration Bisacodyl 10 mg 06/25/18 10:06 Dulcolax Suppository - [place] PRN PRN CONSTIPATION Chlorhexidine Gluconate 1 applic 06/23/18 22:00 06/25/18 21:34 Hibiclens For Decolonization - TP 1 applic HS [facility] Administration Clonazepam 0.5 mg 06/23/18 22:00 06/26/18 10:56 Klonopin - PO Not Given BID [facility] Heparin Sodium (Porcine) 5,000 unit 06/23/18 22:00 06/26/18 10:54 Heparin - SQ 5,000 unit BID [facility] Administration Norepinephrine Bitartrate 4, 500 mls @ 37.5 mls/hr 06/23/18 21:15 06/26/18 05 :00 000 mcg/ Dextrose IV 1 mcg/min TITR [facility] 7.5 mls/hr Titration Protocol 5 MCG/MIN Levofloxacin 250 mg in 50 mls @ 50 mls/hr 06/24/18 12:00 06/26/18 10:49 Levaquin 250 Mg Premixed Ivpb - IVPB 50 mls/hr Q2D@1000 [facility] Administration Protocol Famotidine/Sodium Chloride 20 mg in 50 mls @ 100 mls/hr 06/24/18 11:45 10:45 Pepcid 20 Mg Premixed Ivpb - IVPB 100 mls/hr BID [facility] Administration Piperacillin Sod/Tazobactam 50 mls @ 100 mls/hr 06/25/18 11:45 06/26/18 10:48 Sod 2.25 gm/ Dextrose IVPB 100 mls/hr Q8H-IV [facility] Administration Protocol Lactated Ringer's 1,000 ml in 1,000 mls @ 75 mls/hr 06/26/18 12:00 06/26/18 12:01 Lactated Ringers Solution IV 75 mls/hr ASDIR [facility] Administration Mupirocin 1 applic 06/23/18 22:00 06/26/18 10:15 Bactroban Ointment (For Decolonization) - NS 06/28/18 21:59 1 applic BID [facility] Administration Polyethylene Glycol 17 gm 06/25/18 10:15 06/26/18 10:58 Miralax (For Daily Use) - PO Not Given DAILY [facility] Ranolazine 500 mg 06/23/18 22:00 06/26/18 10:30 Ranexa - PO 500 mg BID [facility] Administration Tramadol HCl 100 mg 06/23/18 22:00 06/26/18 05:25 Ultram - PO 100 mg TID [facility] Administration Impression 1. DIXON 2. hypernatremia 3. sepsis 4. PNA 5. r/o UTI 6. lactic acidosis 7. parkinsons 8. positive troponins 9. HTN 10. HLD 11. mild hydro 12. renal cyst Plan - sodium is rising - pt has a total free water deficit of about 3.1 liters. She will need about 1.6 liters to get her to a sodium of 148 (10 meq change in 24 hrs) - change fluids to 1/2 ns - add free water to feeds - monitor sodium - renal function is improving and urine output is improving as well - replace potassium - discussed with ICU team - monitor urine output - ICU will discuss GOC with family - consider urology eval for sono findings - likely atn from shock and sepsis - maintain saldaña and monitor output - monitor in ICU - will follow Dr Gonsalez
[2018-06-26] MEDS ORDERED: SODIUM CHLORIDE 0.45% 1,000 ML IV SCH (14:15)
[2018-06-26] MEDS: ACETAMINOPHEN 1000 MG/100 ML VIAL (NON FORMULARY) IVPB PRN (16:20)
[2018-06-26] MEDS: CHLORHEXIDINE GLUCONATE 4% CLEANSER FOR DECOLONIZATION TP SCH (22:00)
[2018-06-27] MEDS ORDERED: PIPERACILLIN/TAZOBACTAM 2.25 GM VIAL IVPB ONE ×3 (00:52→17:15)
[2018-06-27] MEDS ORDERED: DEXTROSE 5%-WATER - 50 ML IVPB ONE ×3 (00:52→17:16)
[2018-06-27] MEDS: PIPERACILLIN/TAZOB 2.25 GM 2.25 GM in DEXTROSE 5%-WATER - 50 ML IVPB SCH ×3 (01:10→17:25)
[2018-06-27] MEDS: traMADol HCL 50 MG TABLET PO SCH ×3 (06:04→21:29)
[2018-06-27] MEDS: NOREPINEPHRINE BITARTRATE 4,000 MCG in DEXTROSE 5%-WATER - 496 ML IV SCH ×3 (06:05→22:26)
[2018-06-27 06:17] LABS: BASO % 0.2 % (0-2.0); HEMATOCRIT 36.6 % (32.4-45.2); HEMOGLOBIN 11.4 GM/dL (10.7-15.3); LYMPH % 7.7 % (8-40); MCH 28.9 pg (25.7-33.7); MCHC 31.1 g/dl (32.0-36.0); MEAN CELL VOLUME 92.7 fl (80-96); MEAN PLT VOLUME 12.1 fl (7.5-11.1); MONO % 3.1 % (3.8-10.2); PLATELET COUNT 72 K/MM3 (134-434); RBC 3.95 M/mm3 (3.60-5.2); RDW 15.8 % (11.6-15.6); WHITE BLOOD COUNT 9.3 K/mm3 (4.0-10.0)
[2018-06-27 07:04] LABS: ALK PHOS 145 U/L (45-117); ANION GAP 8 MMOL/L (8-16); BLOOD UREA NITROGEN 90 mg/dL (7-18); CALCIUM 7.5 mg/dL (8.5-10.1); CHLORIDE 126 mmol/L (98-107); CO2 24 mmol/L (21-32); CREATININE 2.5 mg/dL (0.55-1.3); GLUCOSE,RANDOM 173 mg/dL (74-106); MAGNESIUM 2.4 mg/dL (1.8-2.4); POTASSIUM 3.3 mmol/L (3.5-5.1); SGOT/AST 120 U/L (15-37); SGPT/ALT 243 U/L (13-61); SODIUM 158 mmol/L (136-145); TOT PROT 4.9 g/dl (6.4-8.2)
--- NOTE | 2018-06-27 07:06 | PN ---
Physical Exam: SUBJECTIVE: Patient seen and examined. Aphasic. OBJECTIVE: Vital Signs Period Temp Pulse Resp BP Sys/Younger Pulse Ox Last 24 Hr 99.2 F-100.4 F 59-74 11-25 78-116/49-60 100-100 GENERAL: Somnolent, withdraws to tactile stimuli and intermittent vocalization ( per son pt non-verbal at baseline but generally vocalizes) HEAD: No signs of trauma, normocephalic, atraumatic EYES: PERRLA, EOMI, sclera anicteric, conjunctiva clear ENT: NGT in place; Hearing grossly normal, nares patent, oropharynx clear without exudates NECK: R IJ in place, supple LUNGS: diffuse decreased breath sounds and poor inspiratory effort, protecting airway, no tachypnea HEART: Regular rate and rhythm, normal S1 and S2, no murmurs appreciated, peripheral pulses normal and equal bilaterally ABDOMEN: Soft, non-distended; normoactive bowel sounds. EXTREMITIES : no edema. No clubbing or cyanosis NEUROLOGICAL: Withdraws to painful stimuli, not alert, unable to assess orientation SKIN: Warm, Dry Active Medications Generic Name Dose Route Start Last Admin Trade Name Freq PRN Reason Stop Dose Admin Acetaminophen 1,000 mg 06/26/18 15:33 06/26/18 16:20 Ofirmev Injection - IVPB 1,000 mg Q6H PRN Administration FEVER Aspirin 150 mg 06/24/18 10:00 06/26/18 10:53 Asa - [place] 150 mg DAILY [facility] Administration Benztropine Mesylate 2 mg 06/23/18 22:00 06/26/18 22:00 Cogentin - PO 2 mg BID [facility] Administration Bisacodyl 10 mg 06/25/18 10:06 Dulcolax Suppository - [place] PRN PRN CONSTIPATION Chlorhexidine Gluconate 1 applic 06/23/18 22:00 06/26/18 22:00 Hibiclens For Decolonization - TP 1 applic HS [facility] Administration Clonazepam 0.5 mg 06/23/18 22:00 06/26/18 21:58 Klonopin - PO Not Given BID [facility] Heparin Sodium (Porcine) 5,000 unit 06/23/18 22:00 06/26/18 21:58 Heparin - SQ 5,000 unit BID [facility] Administration Norepinephrine Bitartrate 4, 500 mls @ 37.5 mls/hr 06/23/18 21:15 06/27/18 06 :06 000 mcg/ Dextrose IV Not Given TITR [facility] Protocol 5 MCG/MIN Levofloxacin 250 mg in 50 mls @ 50 mls/hr 06/24/18 12:00 06/26/18 10:49 Levaquin 250 Mg Premixed Ivpb - IVPB 50 mls/hr Q2D@1000 [facility] Administration Protocol Famotidine/Sodium Chloride 20 mg in 50 mls @ 100 mls/hr 06/24/18 11:45 21:56 Pepcid 20 Mg Premixed Ivpb - IVPB 100 mls/hr BID [facility] Administration Piperacillin Sod/Tazobactam 50 mls @ 100 mls/hr 06/25/18 11:45 06/27/18 01:10 Sod 2.25 gm/ Dextrose IVPB 100 mls/hr Q8H-IV [facility] Administration Protocol Sodium Chloride 1,000 mls @ 50 mls/hr 06/26/18 14:15 06/26/18 15:30 1/2 Normal Saline IV 06/27/18 14:12 50 mls/hr ASDIR [facility] Administration Mupirocin 1 applic 06/23/18 22:00 06/26/18 22:01 Bactroban Ointment (For Decolonization) - NS 06/28/18 21:59 1 applic BID [facility] Administration Polyethylene Glycol 17 gm 06/25/18 10:15 06/26/18 10:58 Miralax (For Daily Use) - PO Not Given DAILY [facility] Ranolazine 500 mg 06/23/18 22:00 06/26/18 21:58 Ranexa - PO 500 mg BID [facility] Administration Tramadol HCl 100 mg 06/23/18 22:00 06/27/18 06:04 Ultram - PO 100 mg TID [facility] Administration ASSESSMENT/PLAN: 77F with septic shock secondary to pneumonia. Neuro Anxiety -Klonopin BID Acute Pain -Tramadol PRN through NG tube CV HTN hx Hypotension -currently on levophed due to septic shock-hold antihypertensives -Pressors to be titrated to MAP > 65 -Will continue to resuscitate with IVF A-fib -continue Aspirin -Currently rate controlled GI Protonix for GI PPx KUB did not show free air Nutrition -TF w/ free water flushes continued now that pressor usage has decreased -Reordered per most recent Delivery Architect recommendations -On bowel regimen saldaña with decent urine output and some sediment -Will continue to monitory Uop and Cr Electrolytes Hypernatremia -Improving -IVF per nephrology (1/2NS) Hypokalemia -Repleted HEME Hgb 10.8 -> 10.1 -> 11.4 DVT Ppx SQ hep ID continue Abx per ID -on Zosyn & Levaquin -urine antigens negative -Patient afebrile today LTD R IJ (06/23/2018) Saldaña (06/23/2018) Dispo: Patient on levophed. Will continue to require ICU care DNR/DNI Visit type - Emergency Visit Emergency Visit: Yes ED Registration Date: 06/23/18 Care time: The patient presented to the Emergency Department on the above date and was hospitalized for further evaluation of their emergent condition. - New Patient This patient is new to me today: No - Critical Care Critical Care patient: Yes Total Critical Care Time (in minutes): 45 Critical Care Statement: The care of this patient involved high complexity decision making to prevent further life threatening deterioration of the patient 's condition and/or to evaluate & treat vital organ system(s) failure or risk of failure.
[2018-06-27] MEDS: POTASSIUM CHLORIDE 20 MEQ PREMIX IVPB 100 ML IVPB SCH ×3 (08:04→12:38)
[2018-06-27] MEDS ORDERED: MORPHINE SULFATE 2 MG/ML VIAL IVPUSH ONE (08:55)
[2018-06-27] MEDS ORDERED: morphine CARPU-JECT 8 MG/1 ML DISP.SYRIN IVPUSH ONE (08:55)
[2018-06-27] MEDS ORDERED: morphine SULFATE 4 MG/ML VIAL ONE (08:56)
[2018-06-27] MEDS: RANOLAZINE E.R. 500 MG TABLET (FP) PO SCH ×2 (09:14→21:30)
[2018-06-27] MEDS: clonazePAM 0.5 MG TABLET PO SCH ×2 (09:14→21:30)
[2018-06-27] MEDS: ASPIRIN 300 MG SUPP.RECT PR SCH (09:16)
[2018-06-27] MEDS: HEPARIN NA (PORCINE) 5,000 UNITS/ML 1ML VIAL SQ SCH ×2 (09:16→21:30)
[2018-06-27] MEDS: BENZTROPINE MESYLATE 2 MG TABLET PO SCH ×2 (09:21→21:35)
--- NOTE | 2018-06-27 09:29 | PN ---
Progress Note, Physician Chief Complaint: agonal breathing - Current Medication List Current Medications: Active Medications Acetaminophen (Ofirmev Injection -) 1,000 mg IVPB Q6H PRN PRN Reason: FEVER Last Admin: 06/26/18 16:20 Dose: 1,000 mg Aspirin (Asa -) 150 mg [place] DAILY [facility] Last Admin: 06/26/18 10:53 Dose: 150 mg Benztropine Mesylate (Cogentin -) 2 mg PO BID [facility] Last Admin: 06/26/18 22:00 Dose: 2 mg Bisacodyl (Dulcolax Suppository -) 10 mg [place] PRN PRN PRN Reason: CONSTIPATION Chlorhexidine Gluconate (Hibiclens For Decolonization -) 1 applic TP HS [facility] Last Admin: 06/26/18 22:00 Dose: 1 applic Clonazepam (Klonopin -) 0.5 mg PO BID [facility] Last Admin: 06/26/18 21:58 Dose: Not Given Heparin Sodium (Porcine) (Heparin -) 5,000 unit SQ BID [facility] Last Admin: 06/26/18 21:58 Dose: 5,000 unit Norepinephrine Bitartrate 4, (000 mcg/ Dextrose) 500 mls @ 37.5 mls/hr IV TITR [facility]; Protocol Last Admin: 06/27/18 06:06 Dose: Not Given Levofloxacin (Levaquin 250 Mg Premixed Ivpb -) 250 mg in 50 mls @ 50 mls/hr IVPB Q2D@1000 [facility]; Protocol Last Admin: 06/26/18 10:49 Dose: 50 mls/hr Famotidine/Sodium Chloride (Pepcid 20 Mg Premixed Ivpb -) 20 mg in 50 mls @ 100 mls/hr IVPB BID [facility] Last Admin: 06/26/18 21:56 Dose: 100 mls/hr Piperacillin Sod/Tazobactam (Sod 2.25 gm/ Dextrose) 50 mls @ 100 mls/hr IVPB Q8H-IV [facility]; Protocol Last Admin: 06/27/18 01:10 Dose: 100 mls/hr Sodium Chloride (1/2 Normal Saline) 1,000 mls @ 50 mls/hr IV ASDIR [facility] Stop: 06/27/18 14:12 Last Admin: 06/26/18 15:30 Dose: 50 mls/hr Morphine Sulfate (Morphine Sulfate) 2 mg IVPUSH ONCE ONE Stop: 06/27/18 08:56 Last Admin: 06/27/18 09:05 Dose: 2 mg Mupirocin (Bactroban Ointment (For Decolonization) -) 1 applic NS BID [facility] Stop: 06/28/18 21:59 Last Admin: 06/26/18 22:01 Dose: 1 applic Polyethylene Glycol (Miralax (For Daily Use) -) 17 gm PO DAILY [facility] Last Admin: 06/26/18 10:58 Dose: Not Given Potassium Chloride (Potassium Chloride 20 Meq Premix Ivpb -) 20 meq IVPB Q60M [facility] Stop: 06/27/18 09:31 Last Admin: 06/27/18 09:05 Dose: 20 meq Ranolazine (Ranexa -) 500 mg PO BID [facility] Last Admin: 06/26/18 21:58 Dose: 500 mg Tramadol HCl (Ultram -) 100 mg PO TID [facility] Last Admin: 06/27/18 06:04 Dose: 100 mg - Objective Vital Signs: Vital Signs Temperature 99.2 F 06/27/18 02:00 Pulse Rate 74 06/27/18 08:00 Respiratory Rate 16 06/27/18 08:00 Blood Pressure 107/55 L 06/27/18 08:00 O2 Sat by Pulse Oximetry (%) 100 06/26/18 21:00 Constitutional: Yes: No Distress Cardiovascular: Yes: Regular Rate and Rhythm Respiratory: Yes: Rhonchi Edema: No Neurological: Yes: Other (unresponsive) Labs: CBC, BMP 06/27/18 05:30 06/27/18 05:30 INR, PTT INR 1.28 (0.83-1.09) H 06/23/18 19:00 - ....Imaging EKG: Image Reviewed Problem List - Problems (1) Sepsis Code(s): A41.9 - SEPSIS, UNSPECIFIED ORGANISM Qualifiers: Sepsis type: sepsis due to unspecified organism Qualified Code(s): A41.9 - Sepsis, unspecified organism (2) DIXON (acute kidney injury) Code(s): N17.9 - ACUTE KIDNEY FAILURE, UNSPECIFIED (3) Elevated troponin Code(s): R74.8 - ABNORMAL LEVELS OF OTHER SERUM ENZYMES (4) Hypernatremia Code(s): E87.0 - HYPEROSMOLALITY AND HYPERNATREMIA (5) Coronary artery disease Code(s): I25.10 - ATHSCL HEART DISEASE OF [place] CORONARY ARTERY W/O ANG PCTRS (6) DNR (do not resuscitate) Code(s): Z66 - DO NOT RESUSCITATE Assessment/Plan MP: Severe sepsis, septic shock with multisystem organ failure Advanced Parkinson's CAD w/ prior PCI Elevated TnI: secondary to demand ischemia in setting hypotension due to severe septic shock DNR/DNI REC: 1. Pressors to maintain MAP 60mmHg 2. Broad spectrum abx as per Critical Care Team: now on Vanc and Zosyn; follow cultures 3. DVT and GI prophylaxis 4. Add ASA 81mg daily via NGT or per rectum. Would not begin Heparin gtts or Plavix in setting of low platelets (sepsis) 5. Echo with hyperdynamic LV c/w volume depletion/sepsis. 6. Supportive measures for Rx of sepsis and comfort as per family wishes. Poor prognosis.
--- NOTE | 2018-06-27 09:39 | PN ---
Progress Note, Physician - Current Medication List Current Medications: Active Medications Acetaminophen (Ofirmev Injection -) 1,000 mg IVPB Q6H PRN PRN Reason: FEVER Last Admin: 06/26/18 16:20 Dose: 1,000 mg Aspirin (Asa -) 150 mg [place] DAILY [facility] Last Admin: 06/27/18 09:16 Dose: 150 mg Benztropine Mesylate (Cogentin -) 2 mg PO BID [facility] Last Admin: 06/27/18 09:21 Dose: 2 mg Bisacodyl (Dulcolax Suppository -) 10 mg [place] PRN PRN PRN Reason: CONSTIPATION Chlorhexidine Gluconate (Hibiclens For Decolonization -) 1 applic TP HS [facility] Last Admin: 06/26/18 22:00 Dose: 1 applic Clonazepam (Klonopin -) 0.5 mg PO BID [facility] Last Admin: 06/27/18 09:14 Dose: 0.5 mg Heparin Sodium (Porcine) (Heparin -) 5,000 unit SQ BID [facility] Last Admin: 06/27/18 09:16 Dose: 5,000 unit Norepinephrine Bitartrate 4, (000 mcg/ Dextrose) 500 mls @ 37.5 mls/hr IV TITR [facility]; Protocol Last Admin: 06/27/18 06:06 Dose: Not Given Levofloxacin (Levaquin 250 Mg Premixed Ivpb -) 250 mg in 50 mls @ 50 mls/hr IVPB Q2D@1000 [facility]; Protocol Last Admin: 06/26/18 10:49 Dose: 50 mls/hr Famotidine/Sodium Chloride (Pepcid 20 Mg Premixed Ivpb -) 20 mg in 50 mls @ 100 mls/hr IVPB BID [facility] Last Admin: 06/26/18 21:56 Dose: 100 mls/hr Piperacillin Sod/Tazobactam (Sod 2.25 gm/ Dextrose) 50 mls @ 100 mls/hr IVPB Q8H-IV [facility]; Protocol Last Admin: 06/27/18 01:10 Dose: 100 mls/hr Sodium Chloride (1/2 Normal Saline) 1,000 mls @ 50 mls/hr IV ASDIR [facility] Stop: 06/27/18 14:12 Last Admin: 06/26/18 15:30 Dose: 50 mls/hr Mupirocin (Bactroban Ointment (For Decolonization) -) 1 applic NS BID [facility] Stop: 06/28/18 21:59 Last Admin: 06/26/18 22:01 Dose: 1 applic Polyethylene Glycol (Miralax (For Daily Use) -) 17 gm PO DAILY [facility] Last Admin: 06/26/18 10:58 Dose: Not Given Ranolazine (Ranexa -) 500 mg PO BID [facility] Last Admin: 06/27/18 09:14 Dose: 500 mg Tramadol HCl (Ultram -) 100 mg PO TID [facility] Last Admin: 06/27/18 06:04 Dose: 100 mg - Objective Vital Signs: Vital Signs Temperature 99.2 F 06/27/18 02:00 Pulse Rate 74 06/27/18 08:00 Respiratory Rate 16 06/27/18 08:00 Blood Pressure 107/55 L 06/27/18 08:00 O2 Sat by Pulse Oximetry (%) 100 06/26/18 21:00 Labs: CBC, BMP 06/27/18 05:30 06/27/18 05:30 INR, PTT INR 1.28 (0.83-1.09) H 06/23/18 19:00 Problem List - Problems (1) Sepsis Code(s): A41.9 - SEPSIS, UNSPECIFIED ORGANISM Qualifiers: Sepsis type: sepsis due to unspecified organism Qualified Code(s): A41.9 - Sepsis, unspecified organism (2) Hypernatremia Code(s): E87.0 - HYPEROSMOLALITY AND HYPERNATREMIA (3) DIXON (acute kidney injury) Code(s): N17.9 - ACUTE KIDNEY FAILURE, UNSPECIFIED (4) Parkinson disease Code(s): G20 - PARKINSON'S DISEASE (5) Abnormal LFTs Code(s): R94.5 - ABNORMAL RESULTS OF LIVER FUNCTION STUDIES (6) Elevated troponin Code(s): R74.8 - ABNORMAL LEVELS OF OTHER SERUM ENZYMES Assessment/Plan - Problems (1) DIXON (acute kidney injury) Assessment/Plan: cr better renal on board hypokalemia -repleted Code(s): N17.9 - ACUTE KIDNEY FAILURE, UNSPECIFIED (2) Hypernatremia Assessment/Plan: 1/2 NS fluids Code(s): E87.0 - HYPEROSMOLALITY AND HYPERNATREMIA (3) Sepsis Assessment/Plan: levophed abx- bibasilar PNA levaquin and zosyn gi dvt ppx ng tube for feeds - nepro Code(s): A41.9 - SEPSIS, UNSPECIFIED ORGANISM Qualifiers: Sepsis type: sepsis due to unspecified organism Qualified Code(s): A41.9 - Sepsis, unspecified organism (4) Elevated troponin Assessment/Plan: secondary to demand ischemia and hypotension started on aspirin echo done Code(s): R74.8 - ABNORMAL LEVELS OF OTHER
[2018-06-27] MEDS: POLYETHYLENE GLYCOL 3350 119 GM BTL PO SCH (10:39)
[2018-06-27] MEDS: FAMOTIDINE 20 MG/50 ML IVPB 20 MG/50 ML MG IVPB SCH ×2 (11:00→21:30)
[2018-06-27 11:24] LABS: PLATELET ESTIMATE DECREASED; SMUDGE CELLS FEW
[2018-06-27] MEDS ORDERED: SODIUM CHLORIDE 0.45% 1,000 ML IV SCH (11:53)
[2018-06-27] MEDS ORDERED: D5-1/2NS+20 MEQ KCL - 20 MEQ/1,000 ML INFUS.BAG IV SCH (12:15)
[2018-06-27] MEDS: MUPIROCIN 2% TOPICAL OINTMENT FOR DECOLONIZATION NS SCH ×2 (12:38→21:30)
--- NOTE | 2018-06-27 12:41 | PN ---
Teaching Attending Note Name of Resident: Talon Nicholas ATTENDING PHYSICIAN STATEMENT I saw and evaluated the patient. I reviewed the resident's note and discussed the case with the resident. I agree with the resident's findings and plan as documented. SUBJECTIVE: Patient seen and examined in the ICU. Remains lethargic. Still not able to answer questions. Remains on low dose NE (2 mcq) for hemodynamic support. OBJECTIVE: Intake & Output 06/24/18 06/25/18 06/26/18 06/27/18 23:59 23:59 23:59 23:59 Intake Total 2285 1920 1674 590 Output Total 950 2000 3350 300 Balance 8015 80 -1986 290 Weight 118 lb 6.4 oz 118 lb Last Vital Signs Temp Pulse Resp BP Pulse Ox 102.1 F H 68 16 113/61 100 06/27/18 12:18 06/27/18 12:18 06/27/18 12:18 06/27/18 12:18 06/27/18 11:11 Active Medications Acetaminophen (Ofirmev Injection -) 1,000 mg IVPB Q6H PRN PRN Reason: FEVER Last Admin: 06/26/18 16:20 Dose: 1,000 mg Aspirin (Asa -) 150 mg [place] DAILY [facility] Last Admin: 06/27/18 09:16 Dose: 150 mg Benztropine Mesylate (Cogentin -) 2 mg PO BID [facility] Last Admin: 06/27/18 09:21 Dose: 2 mg Bisacodyl (Dulcolax Suppository -) 10 mg [place] PRN PRN PRN Reason: CONSTIPATION Chlorhexidine Gluconate (Hibiclens For Decolonization -) 1 applic TP HS [facility] Last Admin: 06/26/18 22:00 Dose: 1 applic Clonazepam (Klonopin -) 0.5 mg PO BID [facility] Last Admin: 06/27/18 09:14 Dose: 0.5 mg Heparin Sodium (Porcine) (Heparin -) 5,000 unit SQ BID [facility] Last Admin: 06/27/18 09:16 Dose: 5,000 unit Norepinephrine Bitartrate 4, (000 mcg/ Dextrose) 500 mls @ 37.5 mls/hr IV TITR [facility]; Protocol Last Titration: 06/27/18 10:39 Dose: 5 mcg/min, 37.5 mls/hr Levofloxacin (Levaquin 250 Mg Premixed Ivpb -) 250 mg in 50 mls @ 50 mls/hr IVPB Q2D@1000 [facility]; Protocol Last Admin: 06/26/18 10:49 Dose: 50 mls/hr Famotidine/Sodium Chloride (Pepcid 20 Mg Premixed Ivpb -) 20 mg in 50 mls @ 100 mls/hr IVPB BID [facility] Last Admin: 06/26/18 21:56 Dose: 100 mls/hr Piperacillin Sod/Tazobactam (Sod 2.25 gm/ Dextrose) 50 mls @ 100 mls/hr IVPB Q8H-IV [facility]; Protocol Last Admin: 06/27/18 10:39 Dose: 100 mls/hr Potassium Chloride/Dextrose/Sod Cl (D5-1/2ns+20 Meq Kcl -) 20 meq in 1,000 mls @ 75 mls/hr IV ASDIR [facility] Potassium Chloride (Potassium Chloride 10 Meq Premix Ivpb -) 10 meq in 100 mls @ 100 mls/hr IVPB Q60M [facility] Stop: 06/27/18 14:14 Mupirocin (Bactroban Ointment (For Decolonization) -) 1 applic NS BID [facility] Stop: 06/28/18 21:59 Last Admin: 06/26/18 22:01 Dose: 1 applic Polyethylene Glycol (Miralax (For Daily Use) -) 17 gm PO DAILY [facility] Last Admin: 06/27/18 10:39 Dose: Not Given Ranolazine (Ranexa -) 500 mg PO BID [facility] Last Admin: 06/27/18 09:14 Dose: 500 mg Tramadol HCl (Ultram -) 100 mg PO TID [facility] Last Admin: 06/27/18 06:04 Dose: 100 mg Gen: lethargic Heart: RRR Lung: scattered rhonchi Abd: soft, nontender Ext: no edema Laboratory Results - last 24 hr 06/26/18 06/27/18 06/27/18 05:30 05:30 05:30 WBC 9.3 RBC 3.95 Hgb 11.4 Hct 36.6 MCV 92.7 MCH 28.9 MCHC 31.1 L RDW 15.8 H Plt Count 72 L MPV 12.1 H Absolute Neuts (auto) 8.2 H Total Counted 100 Neutrophils % 88.0 H Neutrophils % (Manual) 93.0 H 84.0 H Band Neutrophils % 2.0 2.0 Lymphocytes % 7.7 L D Lymphocytes % (Manual) 4.0 L D 9.0 D Monocytes % 3.1 L D Monocytes % (Manual) 1 L 3 L D Eosinophils % 1.0 D Eosinophils % (Manual) 0.0 2.0 D Basophils % 0.2 Basophils % (Manual) 0.0 Myelocytes % (Man) 0 Promyelocytes % (Man) 0 Blast Cells % (Manual) 0 Nucleated RBC % 2 H Metamyelocytes 0 D Smudge Cells Few Hypochromia 0 Toxic Granulation 0 Dohle Bodies 0 Platelet Estimate Decreased Decreased Polychromasia 0 Poikilocytosis 0 Basophilic Stippling 0 Anisocytosis 0 Microcytosis 0 Macrocytosis 0 Spherocytes 0 Sickle Cells 0 Target Cells 0 Tear Drop Cells 0 Ovalocytes 0 Stomatocytes 0 Helmet Cells 0 [place] Bodies 0 [place] Rings 0 [place] Cells 0 Acanthocytes (Spur) 0 Rouleaux 0 Fragmented RBCs 0 Schistocytes 0 Sodium 158 H Potassium 3.3 L Chloride 126 H Carbon Dioxide 24 Anion Gap 8 BUN 90 H Creatinine 2.5 H Creat Clearance w eGFR 18.72 Random Glucose 173 H Calcium 7.5 L Phosphorus 3.0 Magnesium 2.4 Total Bilirubin 1.0 AST 120 H ALT 243 H Alkaline Phosphatase 145 H Total Protein 4.9 L Albumin 2.0 L ASSESSMENT AND PLAN: Pneumonia likely Aspiration r/o UTI Septic Shock Acute Kidney Injury Hypernatremia Lactic Acidosis Elevated LFTs likely Ischemic Injury +Troponins likely [place] Ischemia Thrombocytopenia HTN Hyperlipidemia Parkinsons Disease - continue antibiotics - IVF to keep CVP 8-12 - titrate pressors to maintain MAP >65 - monitor urine output, creatinine - Aspiration precautions - O2 to keep SPo2 >90% - monitor CBC - DVT/GI prophylaxis - continue ICU monitoring - prognosis guarded, pt DNR/DNI, need further discussions with NOC for GOC Dr Garcia Critical care time spent in reviewing chart, evaluating patient and formulating plan 35 min
--- NOTE | 2018-06-27 13:02 | PN ---
Progress Note, Physician History of Present Illness: Awake, moaning Remains hypotensive on pressors Still febrile WBC improved WNL BC (-) Urine c/s Klebsiella - Current Medication List Current Medications: Active Medications Acetaminophen (Ofirmev Injection -) 1,000 mg IVPB Q6H PRN PRN Reason: FEVER Last Admin: 06/26/18 16:20 Dose: 1,000 mg Aspirin (Asa -) 150 mg [place] DAILY [facility] Last Admin: 06/27/18 09:16 Dose: 150 mg Benztropine Mesylate (Cogentin -) 2 mg PO BID [facility] Last Admin: 06/27/18 09:21 Dose: 2 mg Bisacodyl (Dulcolax Suppository -) 10 mg [place] PRN PRN PRN Reason: CONSTIPATION Chlorhexidine Gluconate (Hibiclens For Decolonization -) 1 applic TP HS [facility] Last Admin: 06/26/18 22:00 Dose: 1 applic Clonazepam (Klonopin -) 0.5 mg PO BID [facility] Last Admin: 06/27/18 09:14 Dose: 0.5 mg Heparin Sodium (Porcine) (Heparin -) 5,000 unit SQ BID [facility] Last Admin: 06/27/18 09:16 Dose: 5,000 unit Norepinephrine Bitartrate 4, (000 mcg/ Dextrose) 500 mls @ 37.5 mls/hr IV TITR [facility]; Protocol Last Titration: 06/27/18 10:39 Dose: 5 mcg/min, 37.5 mls/hr Levofloxacin (Levaquin 250 Mg Premixed Ivpb -) 250 mg in 50 mls @ 50 mls/hr IVPB Q2D@1000 [facility]; Protocol Last Admin: 06/26/18 10:49 Dose: 50 mls/hr Famotidine/Sodium Chloride (Pepcid 20 Mg Premixed Ivpb -) 20 mg in 50 mls @ 100 mls/hr IVPB BID [facility] Last Admin: 06/26/18 21:56 Dose: 100 mls/hr Piperacillin Sod/Tazobactam (Sod 2.25 gm/ Dextrose) 50 mls @ 100 mls/hr IVPB Q8H-IV [facility]; Protocol Last Admin: 06/27/18 10:39 Dose: 100 mls/hr Potassium Chloride/Dextrose/Sod Cl (D5-1/2ns+20 Meq Kcl -) 20 meq in 1,000 mls @ 75 mls/hr IV ASDIR [facility] Potassium Chloride (Potassium Chloride 10 Meq Premix Ivpb -) 10 meq in 100 mls @ 100 mls/hr IVPB Q60M [facility] Stop: 06/27/18 14:14 Mupirocin (Bactroban Ointment (For Decolonization) -) 1 applic NS BID [facility] Stop: 06/28/18 21:59 Last Admin: 06/26/18 22:01 Dose: 1 applic Polyethylene Glycol (Miralax (For Daily Use) -) 17 gm PO DAILY [facility] Last Admin: 06/27/18 10:39 Dose: Not Given Ranolazine (Ranexa -) 500 mg PO BID [facility] Last Admin: 06/27/18 09:14 Dose: 500 mg Tramadol HCl (Ultram -) 100 mg PO TID [facility] Last Admin: 06/27/18 06:04 Dose: 100 mg - Objective Vital Signs: Vital Signs Temperature 102.1 F H 06/27/18 12:18 Pulse Rate 68 06/27/18 12:18 Respiratory Rate 16 06/27/18 12:18 Blood Pressure 113/61 06/27/18 12:18 O2 Sat by Pulse Oximetry (%) 100 06/27/18 11:11 Constitutional: Yes: No Distress Eyes: Yes: Conjunctiva Clear Cardiovascular: Yes: Regular Rate and Rhythm, S1, S2 Respiratory: Yes: CTA Bilaterally Gastrointestinal: Yes: Normal Bowel Sounds, Soft. No: Tenderness Edema: Yes Edema: LLE: 2+, RLE: 2+ Labs: CBC, BMP 06/27/18 05:30 06/27/18 05:30 INR, PTT INR 1.28 (0.83-1.09) H 06/23/18 19:00 Assessment/Plan Septic shock Bibasilar Pneumonia UTI Renal failure Elevated LFTs Lactic acidosis Parkinsonism OBS Continue empiric zosyn Pressors Hemodynamic monitoring Prognosis guarded
[2018-06-27] MEDS: KCL 10 MEQ IVPB 10 MEQ/100 ML INFUS.BAG IVPB SCH ×2 (13:19→13:20)
[2018-06-27] MEDS: ACETAMINOPHEN 1000 MG/100 ML VIAL (NON FORMULARY) IVPB PRN (13:48)
--- NOTE | 2018-06-27 16:44 | PN ---
Progress Note, Physician History of Present Illness: Pt seen and examined at bedside. She is tolerating fees. She remains in the ICU. She is making urine. - Current Medication List Current Medications: Active Medications Acetaminophen (Ofirmev Injection -) 1,000 mg IVPB Q6H PRN PRN Reason: FEVER Last Admin: 06/27/18 13:48 Dose: 1,000 mg Aspirin (Asa -) 150 mg [place] DAILY [facility] Last Admin: 06/27/18 09:16 Dose: 150 mg Benztropine Mesylate (Cogentin -) 2 mg PO BID [facility] Last Admin: 06/27/18 09:21 Dose: 2 mg Bisacodyl (Dulcolax Suppository -) 10 mg [place] PRN PRN PRN Reason: CONSTIPATION Chlorhexidine Gluconate (Hibiclens For Decolonization -) 1 applic TP HS [facility] Last Admin: 06/26/18 22:00 Dose: 1 applic Clonazepam (Klonopin -) 0.5 mg PO BID [facility] Last Admin: 06/27/18 09:14 Dose: 0.5 mg Heparin Sodium (Porcine) (Heparin -) 5,000 unit SQ BID [facility] Last Admin: 06/27/18 09:16 Dose: 5,000 unit Norepinephrine Bitartrate 4, (000 mcg/ Dextrose) 500 mls @ 37.5 mls/hr IV TITR [facility]; Protocol Last Titration: 06/27/18 10:39 Dose: 5 mcg/min, 37.5 mls/hr Levofloxacin (Levaquin 250 Mg Premixed Ivpb -) 250 mg in 50 mls @ 50 mls/hr IVPB Q2D@1000 [facility]; Protocol Last Admin: 06/26/18 10:49 Dose: 50 mls/hr Famotidine/Sodium Chloride (Pepcid 20 Mg Premixed Ivpb -) 20 mg in 50 mls @ 100 mls/hr IVPB BID [facility] Last Admin: 06/27/18 11:00 Dose: 100 mls/hr Piperacillin Sod/Tazobactam (Sod 2.25 gm/ Dextrose) 50 mls @ 100 mls/hr IVPB Q8H-IV [facility]; Protocol Last Admin: 06/27/18 10:39 Dose: 100 mls/hr Potassium Chloride/Dextrose/Sod Cl (D5-1/2ns+20 Meq Kcl -) 20 meq in 1,000 mls @ 75 mls/hr IV ASDIR [facility] Last Admin: 06/27/18 16:14 Dose: 75 mls/hr Mupirocin (Bactroban Ointment (For Decolonization) -) 1 applic NS BID [facility] Stop: 06/28/18 21:59 Last Admin: 06/27/18 12:38 Dose: 1 applic Polyethylene Glycol (Miralax (For Daily Use) -) 17 gm PO DAILY [facility] Last Admin: 06/27/18 10:39 Dose: Not Given Ranolazine (Ranexa -) 500 mg PO BID [facility] Last Admin: 06/27/18 09:14 Dose: 500 mg Tramadol HCl (Ultram -) 100 mg PO TID [facility] Last Admin: 06/27/18 15:20 Dose: 100 mg - Objective Vital Signs: Vital Signs Temperature 99.9 F H 06/27/18 14:55 Pulse Rate 66 06/27/18 13:36 Respiratory Rate 16 06/27/18 15:51 Blood Pressure 97/56 L 06/27/18 15:51 O2 Sat by Pulse Oximetry (%) 100 06/27/18 11:11 Constitutional: Yes: Calm Eyes: Yes: Conjunctiva Clear HENT: Yes: Atraumatic Cardiovascular: Yes: S1, S2 Respiratory: Yes: On Venti-Mask Gastrointestinal: Yes: Soft Genitourinary: Yes: [place] Present Musculoskeletal: Yes: Muscle Weakness Edema: Yes Edema: LLE: 1+, RLE: 1+ Neurological: Yes: Lethargy Labs: CBC, BMP 06/27/18 05:30 06/27/18 05:30 INR, PTT INR 1.28 (0.83-1.09) H 06/23/18 19:00 Problem List - Problems (1) DIXON (acute kidney injury) Code(s): N17.9 - ACUTE KIDNEY FAILURE, UNSPECIFIED (2) Coronary artery disease Code(s): I25.10 - ATHSCL HEART DISEASE OF [place] CORONARY ARTERY W/O ANG PCTRS (3) Elevated troponin Code(s): R74.8 - ABNORMAL LEVELS OF OTHER SERUM ENZYMES (4) Hypernatremia Code(s): E87.0 - HYPEROSMOLALITY AND HYPERNATREMIA (5) Parkinson disease Code(s): G20 - PARKINSON'S DISEASE Assessment/Plan Current Medications Generic Name Dose Route Start Last Admin Trade Name Freq PRN Reason Stop Dose Admin Acetaminophen 1,000 mg 06/26/18 15:33 06/27/18 13:48 Ofirmev Injection - IVPB 1,000 mg Q6H PRN Administration FEVER Aspirin 150 mg 06/24/18 10:00 06/27/18 09:16 Asa - [place] 150 mg DAILY [facility] Administration Benztropine Mesylate 2 mg 06/23/18 22:00 06/27/18 09:21 Cogentin - PO 2 mg BID [facility] Administration Bisacodyl 10 mg 06/25/18 10:06 Dulcolax Suppository - [place] PRN PRN CONSTIPATION Chlorhexidine Gluconate 1 applic 06/23/18 22:00 06/26/18 22:00 Hibiclens For Decolonization - TP 1 applic HS [facility] Administration Clonazepam 0.5 mg 06/23/18 22:00 06/27/18 09:14 Klonopin - PO 0.5 mg BID [facility] Administration Heparin Sodium (Porcine) 5,000 unit 06/23/18 22:00 06/27/18 09:16 Heparin - SQ 5,000 unit BID [facility] Administration Norepinephrine Bitartrate 4, 500 mls @ 37.5 mls/hr 06/23/18 21:15 06/27/18 10 :39 000 mcg/ Dextrose IV 5 mcg/min TITR [facility] 37.5 mls/hr Titration Protocol 5 MCG/MIN Levofloxacin 250 mg in 50 mls @ 50 mls/hr 06/24/18 12:00 06/26/18 10:49 Levaquin 250 Mg Premixed Ivpb - IVPB 50 mls/hr Q2D@1000 [facility] Administration Protocol Famotidine/Sodium Chloride 20 mg in 50 mls @ 100 mls/hr 06/24/18 11:45 11:00 Pepcid 20 Mg Premixed Ivpb - IVPB 100 mls/hr BID [facility] Administration Piperacillin Sod/Tazobactam 50 mls @ 100 mls/hr 06/25/18 11:45 06/27/18 10:39 Sod 2.25 gm/ Dextrose IVPB 100 mls/hr Q8H-IV [facility] Administration Protocol Mupirocin 1 applic 06/23/18 22:00 06/27/18 12:38 Bactroban Ointment (For Decolonization) - NS 06/28/18 21:59 1 applic BID [facility] Administration Polyethylene Glycol 17 gm 06/25/18 10:15 06/27/18 10:39 Miralax (For Daily Use) - PO Not Given DAILY [facility] Ranolazine 500 mg 06/23/18 22:00 06/27/18 09:14 Ranexa - PO 500 mg BID [facility] Administration Tramadol HCl 100 mg 06/23/18 22:00 06/27/18 15:20 Ultram - PO 100 mg TID [facility] Administration Impression 1. DIXON 2. hypernatremia 3. sepsis 4. PNA 5. r/o UTI 6. lactic acidosis 7. parkinsons 8. positive troponins 9. HTN 10. HLD 11. mild hydro 12. renal cyst Plan - will increase free water with feeds - renal function is improving, she developed polyuria, likely has resolving ATN - cont to monitor sodium - change fluids fro d5 1/2 to 1/2ns - replace potassium and check mag - monitor lytes - discussed with ICU team - ICU will discuss GOC with family - consider urology eval for sono findings - likely atn from shock and sepsis - maintain saldaña and monitor output - monitor in ICU - will follow Dr Gonsalez
[2018-06-27] MEDS ORDERED: PT OWN MED DRAWER 7, Y5N ONE (21:33)
[2018-06-27] MEDS: CHLORHEXIDINE GLUCONATE 4% CLEANSER FOR DECOLONIZATION TP SCH (23:00)
[2018-06-28] MEDS: ACETAMINOPHEN 1000 MG/100 ML VIAL (NON FORMULARY) IVPB PRN ×2 (01:17→21:24)
[2018-06-28] MEDS ORDERED: PIPERACILLIN/TAZOBACTAM 2.25 GM VIAL IVPB ONE ×3 (01:23→16:39)
[2018-06-28] MEDS ORDERED: DEXTROSE 5%-WATER - 50 ML IVPB ONE ×3 (01:24→16:39)
[2018-06-28] MEDS: PIPERACILLIN/TAZOB 2.25 GM 2.25 GM in DEXTROSE 5%-WATER - 50 ML IVPB SCH ×3 (01:24→17:24)
[2018-06-28] MEDS: traMADol HCL 50 MG TABLET PO SCH ×3 (05:36→21:23)
[2018-06-28 06:09] LABS: BASO % 0.2 % (0-2.0); EOS % 1.8 % (0-4.5); HEMATOCRIT 32.5 % (32.4-45.2); HEMOGLOBIN 10.3 GM/dL (10.7-15.3); LYMPH % 10.1 % (8-40); MCHC 31.6 g/dl (32.0-36.0); MEAN CELL VOLUME 91.8 fl (80-96); MEAN PLT VOLUME 11.6 fl (7.5-11.1); MONO % 3.2 % (3.8-10.2); NEUT % 84.7 % (42.8-82.8); PLATELET COUNT 85 K/MM3 (134-434); RBC 3.54 M/mm3 (3.60-5.2); RDW 15.3 % (11.6-15.6); WHITE BLOOD COUNT 8.8 K/mm3 (4.0-10.0)
[2018-06-28 07:36] LABS: ALBUMIN 1.8 g/dl (3.4-5.0); ALK PHOS 168 U/L (45-117); ANION GAP 7 MMOL/L (8-16); BLOOD UREA NITROGEN 71 mg/dL (7-18); CALCIUM 7.7 mg/dL (8.5-10.1); CHLORIDE 123 mmol/L (98-107); CO2 24 mmol/L (21-32); CREATININE 1.9 mg/dL (0.55-1.3); GLUCOSE,RANDOM 172 mg/dL (74-106); MAGNESIUM 2.3 mg/dL (1.8-2.4); PHOSPHOROUS 2.2 mg/dL (2.5-4.9); POTASSIUM 3.5 mmol/L (3.5-5.1); SGOT/AST 76 U/L (15-37); SGPT/ALT 238 U/L (13-61); SODIUM 154 mmol/L (136-145); TOT PROT 4.7 g/dl (6.4-8.2)
[2018-06-28] MEDS ORDERED: PT OWN MED DRAWER 7, Y5N ONE (08:52)
--- NOTE | 2018-06-28 08:53 | PN ---
Progress Note, Physician Chief Complaint: Non verbal History of Present Illness: Patient seen and examined at bedside Tmax 101.2 at 1AM currently afebrile - Current Medication List Current Medications: Active Medications Acetaminophen (Ofirmev Injection -) 1,000 mg IVPB Q6H PRN PRN Reason: FEVER Last Admin: 06/28/18 01:17 Dose: 1,000 mg Aspirin (Asa -) 150 mg [place] DAILY [facility] Last Admin: 06/27/18 09:16 Dose: 150 mg Benztropine Mesylate (Cogentin -) 2 mg PO BID [facility] Last Admin: 06/27/18 21:35 Dose: 2 mg Bisacodyl (Dulcolax Suppository -) 10 mg [place] PRN PRN PRN Reason: CONSTIPATION Chlorhexidine Gluconate (Hibiclens For Decolonization -) 1 applic TP HS [facility] Last Admin: 06/27/18 23:00 Dose: 1 applic Clonazepam (Klonopin -) 0.5 mg PO BID [facility] Last Admin: 06/27/18 21:30 Dose: 0.5 mg Heparin Sodium (Porcine) (Heparin -) 5,000 unit SQ BID [facility] Last Admin: 06/27/18 21:30 Dose: 5,000 unit Norepinephrine Bitartrate 4, (000 mcg/ Dextrose) 500 mls @ 37.5 mls/hr IV TITR [facility]; Protocol Last Titration: 06/27/18 23:00 Dose: 5 mcg/min, 37.5 mls/hr Levofloxacin (Levaquin 250 Mg Premixed Ivpb -) 250 mg in 50 mls @ 50 mls/hr IVPB Q2D@1000 [facility]; Protocol Last Admin: 06/26/18 10:49 Dose: 50 mls/hr Famotidine/Sodium Chloride (Pepcid 20 Mg Premixed Ivpb -) 20 mg in 50 mls @ 100 mls/hr IVPB BID [facility] Last Admin: 06/27/18 21:30 Dose: 100 mls/hr Piperacillin Sod/Tazobactam (Sod 2.25 gm/ Dextrose) 50 mls @ 100 mls/hr IVPB Q8H-IV [facility]; Protocol Last Admin: 06/28/18 01:24 Dose: 100 mls/hr Mupirocin (Bactroban Ointment (For Decolonization) -) 1 applic NS BID [facility] Stop: 06/28/18 21:59 Last Admin: 06/27/18 21:30 Dose: 1 applic Polyethylene Glycol (Miralax (For Daily Use) -) 17 gm PO DAILY [facility] Last Admin: 06/27/18 10:39 Dose: Not Given Ranolazine (Ranexa -) 500 mg PO BID [facility] Last Admin: 06/27/18 21:30 Dose: 500 mg Tramadol HCl (Ultram -) 100 mg PO TID [facility] Last Admin: 06/28/18 05:36 Dose: 100 mg - Objective Vital Signs: Vital Signs Temperature 98.9 F 06/28/18 05:00 Pulse Rate 69 06/28/18 07:00 Respiratory Rate 16 06/28/18 07:00 Blood Pressure 110/66 06/28/18 07:00 O2 Sat by Pulse Oximetry (%) 100 06/28/18 01:00 Constitutional: Yes: No Distress, Calm, Thin Eyes: Yes: EOM Intact HENT: Yes: Atraumatic, Other (right IJ in place) Neck: Yes: Supple Cardiovascular: Yes: Regular Rate and Rhythm Respiratory: Yes: CTA Bilaterally Gastrointestinal: Yes: Other (abdomen was slightly hard this AM but non tender non distended) Edema: Yes: Trace non pitting edema Neurological: Yes: Alert, Other (able to open eyes and move head towards voice when name called) Labs: CBC, BMP 06/28/18 05:30 06/28/18 05:30 INR, PTT INR 1.28 (0.83-1.09) H 06/23/18 19:00 Assessment/Plan 77F with septic shock secondary to pneumonia. Neuro Anxiety Klonopin BID Acute Pain Tramadol PRN through NG tube Morphine PRN for agonal breathing CV HTN currently on pressors due to septic shock-hold antihypertensives A-fib continue Aspirin rectal Currently rate controlled GI start tube feeds today-spoke with insurance broker Protonix for GI PPx saldaña with good urine output and some sediment Electrolytes Hypernatremia 154 improving will replete potassium and potassium for hypophosphatemuia and hypokalemia HEME Hgb 10.3 Will continue to trend HSQ for DVT PPx ID continue Abx per ID-on Zosyn urine antigens negative febrile overnight not cultured if spikes again will panculture Tylenol IV q6h PRN Right IJ day 5 Saldaña Day 5 Dispo: on levophed. continue ICU care
[2018-06-28] MEDS ORDERED: POTASSIUM PHOSPHATE 30 MM in DEXTROSE 5%-WATER - 250 ML IVPB ONE (08:55)
[2018-06-28] MEDS: FAMOTIDINE 20 MG/50 ML IVPB 20 MG/50 ML MG IVPB SCH ×2 (10:00→21:22)
[2018-06-28] MEDS: ASPIRIN 300 MG SUPP.RECT PR SCH (10:00)
[2018-06-28] MEDS: RANOLAZINE E.R. 500 MG TABLET (FP) PO SCH ×2 (10:00→21:22)
[2018-06-28] MEDS: BENZTROPINE MESYLATE 2 MG TABLET PO SCH ×2 (10:00→21:24)
[2018-06-28] MEDS: MUPIROCIN 2% TOPICAL OINTMENT FOR DECOLONIZATION NS SCH (10:00)
[2018-06-28] MEDS: clonazePAM 0.5 MG TABLET PO SCH ×3 (10:00→21:35)
[2018-06-28] MEDS: HEPARIN NA (PORCINE) 5,000 UNITS/ML 1ML VIAL SQ SCH ×2 (10:00→21:25)
--- NOTE | 2018-06-28 10:29 | PN ---
Teaching Attending Note Name of Resident: Elder Perdomo ATTENDING PHYSICIAN STATEMENT I saw and evaluated the patient. I reviewed the resident's note and discussed the case with the resident. I agree with the resident's findings and plan as documented. SUBJECTIVE: Pt seen and examined in the ICU. Remains lethargic on levophed gtt and ventimask 40%. OBJECTIVE: Vital Signs Period Temp Pulse Resp BP Sys/Younger Pulse Ox Last 24 Hr 98.2 F-102.1 F 62-79 10-16 85-115/50-66 100-100 Intake & Output 06/25/18 06/26/18 06/27/18 06/28/18 23:59 23:59 23:59 23:59 Intake Total 1920 1674 2115 712.5 Output Total 1999 3350 1250 400 Balance -80 -1676 865 312.5 Weight 53.524 kg Gen: lethargic, mildly tachypneic Heart: RRR Lung: scattered rhonchi Abd: soft, nontender Ext: no edema CBC, BMP 06/28/18 05:30 06/28/18 05:30 Active Medications Acetaminophen (Ofirmev Injection -) 1,000 mg IVPB Q6H PRN PRN Reason: FEVER Last Admin: 06/28/18 01:17 Dose: 1,000 mg Aspirin (Asa -) 150 mg [place] DAILY [facility] Last Admin: 06/27/18 09:16 Dose: 150 mg Benztropine Mesylate (Cogentin -) 2 mg PO BID [facility] Last Admin: 06/27/18 21:35 Dose: 2 mg Bisacodyl (Dulcolax Suppository -) 10 mg [place] PRN PRN PRN Reason: CONSTIPATION Chlorhexidine Gluconate (Hibiclens For Decolonization -) 1 applic TP HS [facility] Last Admin: 06/27/18 23:00 Dose: 1 applic Clonazepam (Klonopin -) 0.5 mg PO BID [facility] Last Admin: 06/27/18 21:30 Dose: 0.5 mg Heparin Sodium (Porcine) (Heparin -) 5,000 unit SQ BID [facility] Last Admin: 06/27/18 21:30 Dose: 5,000 unit Norepinephrine Bitartrate 4, (000 mcg/ Dextrose) 500 mls @ 37.5 mls/hr IV TITR [facility]; Protocol Last Titration: 06/27/18 23:00 Dose: 5 mcg/min, 37.5 mls/hr Levofloxacin (Levaquin 250 Mg Premixed Ivpb -) 250 mg in 50 mls @ 50 mls/hr IVPB Q2D@1000 [facility]; Protocol Last Admin: 06/26/18 10:49 Dose: 50 mls/hr Famotidine/Sodium Chloride (Pepcid 20 Mg Premixed Ivpb -) 20 mg in 50 mls @ 100 mls/hr IVPB BID [facility] Last Admin: 06/27/18 21:30 Dose: 100 mls/hr Piperacillin Sod/Tazobactam (Sod 2.25 gm/ Dextrose) 50 mls @ 100 mls/hr IVPB Q8H-IV [facility]; Protocol Last Admin: 06/28/18 01:24 Dose: 100 mls/hr Potassium Phosphate 30 mm/ (Dextrose) 260 mls @ 62.5 mls/hr IVPB ONCE ONE Stop: 06/28/18 13:04 Mupirocin (Bactroban Ointment (For Decolonization) -) 1 applic NS BID [facility] Stop: 06/28/18 21:59 Last Admin: 06/27/18 21:30 Dose: 1 applic Polyethylene Glycol (Miralax (For Daily Use) -) 17 gm PO DAILY [facility] Last Admin: 06/27/18 10:39 Dose: Not Given Ranolazine (Ranexa -) 500 mg PO BID [facility] Last Admin: 06/27/18 21:30 Dose: 500 mg Tramadol HCl (Ultram -) 100 mg PO TID [facility] Last Admin: 06/28/18 05:36 Dose: 100 mg ASSESSMENT AND PLAN: Pneumonia likely Aspiration UTI Septic Shock Acute Kidney Injury Hypernatremia Lactic Acidosis Elevated LFTs likely Ischemic Injury +Troponins likely Demand Ischemia Thrombocytopenia HTN Hyperlipidemia Parkinsons Disease - continue antibiotics - IVF to keep CVP 8-12 - taper pressors to maintain MAP >65 - trend LFTs - monitor urine output, creatinine - aspiration precautions - O2 to keep SPo2 >90% - monitor CBC - DVT/GI prophylaxis - continue ICU monitoring - prognosis guarded, pt DNR/DNI critical care time spent in reviewing chart, evaluating patient and formulating plan 35 min
[2018-06-28] MEDS ORDERED: morphine CARPU-JECT 2 MG/1 ML DISP.SYRIN IVPUSH PRN (10:30)
[2018-06-28] MEDS ORDERED: morphine SULFATE 4 MG/ML VIAL ONE (10:33)
[2018-06-28 10:36] LABS: ANISOCYTOSIS 2+; MACROCYTOSIS 2+; PLATELET ESTIMATE DECREASED
--- NOTE | 2018-06-28 10:41 | PN ---
Progress Note, Physician History of Present Illness: Lethargic, moaning. Not verbally responsive. Remains hypotensive on pressors Febrile overnight WBC improved WNL BC (-) Urine c/s Klebsiella - Current Medication List Current Medications: Active Medications Acetaminophen (Ofirmev Injection -) 1,000 mg IVPB Q6H PRN PRN Reason: FEVER Last Admin: 06/28/18 01:17 Dose: 1,000 mg Aspirin (Asa -) 150 mg [place] DAILY [facility] Last Admin: 06/27/18 09:16 Dose: 150 mg Benztropine Mesylate (Cogentin -) 2 mg PO BID [facility] Last Admin: 06/27/18 21:35 Dose: 2 mg Bisacodyl (Dulcolax Suppository -) 10 mg [place] PRN PRN PRN Reason: CONSTIPATION Chlorhexidine Gluconate (Hibiclens For Decolonization -) 1 applic TP HS [facility] Last Admin: 06/27/18 23:00 Dose: 1 applic Clonazepam (Klonopin -) 0.5 mg PO BID [facility] Last Admin: 06/27/18 21:30 Dose: 0.5 mg Heparin Sodium (Porcine) (Heparin -) 5,000 unit SQ BID [facility] Last Admin: 06/27/18 21:30 Dose: 5,000 unit Norepinephrine Bitartrate 4, (000 mcg/ Dextrose) 500 mls @ 37.5 mls/hr IV TITR [facility]; Protocol Last Titration: 06/27/18 23:00 Dose: 5 mcg/min, 37.5 mls/hr Levofloxacin (Levaquin 250 Mg Premixed Ivpb -) 250 mg in 50 mls @ 50 mls/hr IVPB Q2D@1000 [facility]; Protocol Last Admin: 06/26/18 10:49 Dose: 50 mls/hr Famotidine/Sodium Chloride (Pepcid 20 Mg Premixed Ivpb -) 20 mg in 50 mls @ 100 mls/hr IVPB BID [facility] Last Admin: 06/27/18 21:30 Dose: 100 mls/hr Piperacillin Sod/Tazobactam (Sod 2.25 gm/ Dextrose) 50 mls @ 100 mls/hr IVPB Q8H-IV [facility]; Protocol Last Admin: 06/28/18 01:24 Dose: 100 mls/hr Potassium Phosphate 30 mm/ (Dextrose) 260 mls @ 62.5 mls/hr IVPB ONCE ONE Stop: 06/28/18 13:04 Morphine Sulfate (Morphine Injection -) 2 mg IVPUSH Q2H PRN PRN Reason: respiratory rate >20 or agonal Mupirocin (Bactroban Ointment (For Decolonization) -) 1 applic NS BID [facility] Stop: 06/28/18 21:59 Last Admin: 06/27/18 21:30 Dose: 1 applic Polyethylene Glycol (Miralax (For Daily Use) -) 17 gm PO DAILY [facility] Last Admin: 06/27/18 10:39 Dose: Not Given Ranolazine (Ranexa -) 500 mg PO BID [facility] Last Admin: 06/27/18 21:30 Dose: 500 mg Tramadol HCl (Ultram -) 100 mg PO TID [facility] Last Admin: 06/28/18 05:36 Dose: 100 mg - Objective Vital Signs: Vital Signs Temperature 98.9 F 06/28/18 05:00 Pulse Rate 69 06/28/18 07:00 Respiratory Rate 16 06/28/18 07:00 Blood Pressure 110/66 06/28/18 07:00 O2 Sat by Pulse Oximetry (%) 100 06/28/18 01:00 Constitutional: Yes: No Distress, Cachectic Cardiovascular: Yes: Regular Rate and Rhythm, S1, S2 Respiratory: Yes: Diminished Gastrointestinal: Yes: Normal Bowel Sounds, Soft. No: Tenderness Edema: Yes Labs: CBC, BMP 06/28/18 05:30 06/28/18 05:30 INR, PTT INR 1.28 (0.83-1.09) H 06/23/18 19:00 Assessment/Plan Septic shock Bibasilar Pneumonia UTI Renal failure improved Elevated LFTs Lactic acidosis Parkinsonism OBS Continue zosyn Pressors Reculture for recurrent temp Hemodynamic monitoring Prognosis guarded
[2018-06-28] MEDS: POLYETHYLENE GLYCOL 3350 119 GM BTL PO SCH (11:41)
--- NOTE | 2018-06-28 14:19 | PN ---
Progress Note (short form) - Note Progress Note: covering Dr Gonsalez Problems 1. DIXON 2. hypernatremia 3. sepsis 4. PNA 5. r/o UTI 6. lactic acidosis 7. parkinsons 8. positive troponins 9. HTN 10. HLD 11. mild hydro 12. renal cyst Current Medications Acetaminophen (Ofirmev Injection -) 1,000 mg IVPB Q6H PRN PRN Reason: FEVER Last Admin: 06/28/18 01:17 Dose: 1,000 mg Aspirin (Asa -) 150 mg [place] DAILY [facility] Last Admin: 06/28/18 10:00 Dose: 150 mg Benztropine Mesylate (Cogentin -) 2 mg PO BID [facility] Last Admin: 06/28/18 10:00 Dose: 2 mg Bisacodyl (Dulcolax Suppository -) 10 mg [place] PRN PRN PRN Reason: CONSTIPATION Chlorhexidine Gluconate (Hibiclens For Decolonization -) 1 applic TP HS [facility] Last Admin: 06/27/18 23:00 Dose: 1 applic Clonazepam (Klonopin -) 0.5 mg PO BID [facility] Last Admin: 06/28/18 10:00 Dose: 0.5 mg Heparin Sodium (Porcine) (Heparin -) 5,000 unit SQ BID [facility] Last Admin: 06/28/18 10:00 Dose: 5,000 unit Norepinephrine Bitartrate 4, (000 mcg/ Dextrose) 500 mls @ 37.5 mls/hr IV TITR [facility]; Protocol Last Titration: 06/27/18 23:00 Dose: 5 mcg/min, 37.5 mls/hr Levofloxacin (Levaquin 250 Mg Premixed Ivpb -) 250 mg in 50 mls @ 50 mls/hr IVPB Q2D@1000 [facility]; Protocol Last Admin: 06/28/18 10:00 Dose: 50 mls/hr Famotidine/Sodium Chloride (Pepcid 20 Mg Premixed Ivpb -) 20 mg in 50 mls @ 100 mls/hr IVPB BID [facility] Last Admin: 06/28/18 10:00 Dose: 100 mls/hr Piperacillin Sod/Tazobactam (Sod 2.25 gm/ Dextrose) 50 mls @ 100 mls/hr IVPB Q8H-IV [facility]; Protocol Last Admin: 06/28/18 10:00 Dose: 100 mls/hr Morphine Sulfate (Morphine Injection -) 2 mg IVPUSH Q2H PRN PRN Reason: respiratory rate >20 or agonal Mupirocin (Bactroban Ointment (For Decolonization) -) 1 applic NS BID [facility] Stop: 06/28/18 21:59 Last Admin: 06/28/18 10:00 Dose: 1 applic Polyethylene Glycol (Miralax (For Daily Use) -) 17 gm PO DAILY [facility] Last Admin: 06/28/18 11:41 Dose: Not Given Ranolazine (Ranexa -) 500 mg PO BID [facility] Last Admin: 06/28/18 10:00 Dose: 500 mg Tramadol HCl (Ultram -) 100 mg PO TID [facility] Last Admin: 06/28/18 05:36 Dose: 100 mg Last Vital Signs Temp Pulse Resp BP Pulse Ox 98.9 F 82 14 87/58 L 100 06/28/18 05:00 06/28/18 13:00 06/28/18 13:00 06/28/18 13:00 06/28/18 10:00 CBC, BMP 06/28/18 05:30 06/28/18 05:30 06/27/18 06/28/18 05:30 05:30 Sodium 158 H 154 H Potassium 3.3 L 3.5 Chloride 126 H 123 H BUN 90 H 71 H Creatinine 2.5 H 1.9 H improving hydration/hypernatremia/renal failure Plan - will increase free water with feeds - renal function is improving, s/p polyuria, likely has resolving ATN - cont to monitor sodium - s/p change fluids fro d5 1/2 to 1/2ns - replace potassium and check mag - monitor lytes - discussed with ICU team - ICU will discuss GOC with family - consider urology eval for sono findings - likely atn from shock and sepsis - maintain saldaña and monitor output - monitor in ICU
[2018-06-28] MEDS ORDERED: NOREPINEPHRINE BITARTRATE 4 MG/4 ML ML IV ONE (15:39)
--- NOTE | 2018-06-28 18:21 | PN ---
Progress Note, Physician Chief Complaint: non-verbal History of Present Illness: Previous notes and events reviewed examined at bedside - Current Medication List Current Medications: Active Medications Acetaminophen (Ofirmev Injection -) 1,000 mg IVPB Q6H PRN PRN Reason: FEVER Last Admin: 06/28/18 01:17 Dose: 1,000 mg Aspirin (Asa -) 150 mg [place] DAILY [facility] Last Admin: 06/28/18 10:00 Dose: 150 mg Benztropine Mesylate (Cogentin -) 2 mg PO BID [facility] Last Admin: 06/28/18 10:00 Dose: 2 mg Bisacodyl (Dulcolax Suppository -) 10 mg [place] PRN PRN PRN Reason: CONSTIPATION Chlorhexidine Gluconate (Hibiclens For Decolonization -) 1 applic TP HS [facility] Last Admin: 06/27/18 23:00 Dose: 1 applic Clonazepam (Klonopin -) 0.5 mg PO BID [facility] Last Admin: 06/28/18 10:00 Dose: 0.5 mg Heparin Sodium (Porcine) (Heparin -) 5,000 unit SQ BID [facility] Last Admin: 06/28/18 10:00 Dose: 5,000 unit Norepinephrine Bitartrate 4, (000 mcg/ Dextrose) 500 mls @ 37.5 mls/hr IV TITR [facility]; Protocol Last Titration: 06/27/18 23:00 Dose: 5 mcg/min, 37.5 mls/hr Levofloxacin (Levaquin 250 Mg Premixed Ivpb -) 250 mg in 50 mls @ 50 mls/hr IVPB Q2D@1000 [facility]; Protocol Last Admin: 06/28/18 10:00 Dose: 50 mls/hr Famotidine/Sodium Chloride (Pepcid 20 Mg Premixed Ivpb -) 20 mg in 50 mls @ 100 mls/hr IVPB BID [facility] Last Admin: 06/28/18 10:00 Dose: 100 mls/hr Piperacillin Sod/Tazobactam (Sod 2.25 gm/ Dextrose) 50 mls @ 100 mls/hr IVPB Q8H-IV [facility]; Protocol Last Admin: 06/28/18 17:24 Dose: 100 mls/hr Morphine Sulfate (Morphine Injection -) 2 mg IVPUSH Q2H PRN PRN Reason: respiratory rate >20 or agonal Mupirocin (Bactroban Ointment (For Decolonization) -) 1 applic NS BID [facility] Stop: 06/28/18 21:59 Last Admin: 06/28/18 10:00 Dose: 1 applic Polyethylene Glycol (Miralax (For Daily Use) -) 17 gm PO DAILY [facility] Last Admin: 06/28/18 11:41 Dose: Not Given Ranolazine (Ranexa -) 500 mg PO BID [facility] Last Admin: 06/28/18 10:00 Dose: 500 mg Tramadol HCl (Ultram -) 100 mg PO TID [facility] Last Admin: 06/28/18 15:28 Dose: 100 mg - Objective Vital Signs: Vital Signs Temperature 99.0 F 06/28/18 18:00 Pulse Rate 82 06/28/18 18:00 Respiratory Rate 14 06/28/18 18:00 Blood Pressure 102/57 L 06/28/18 18:00 O2 Sat by Pulse Oximetry (%) 100 06/28/18 10:00 Constitutional: Yes: No Distress, Cachectic Cardiovascular: Yes: Regular Rate and Rhythm Respiratory: Yes: Diminished Gastrointestinal: Yes: WNL, Soft Extremities: Yes: WNL Edema: Yes Wound/Incision: Yes: Dressing Dry and Intact Labs: CBC, BMP 06/28/18 05:30 06/28/18 05:30 INR, PTT INR 1.28 (0.83-1.09) H 06/23/18 19:00 Problem List - Problems (1) DIXON (acute kidney injury) Code(s): N17.9 - ACUTE KIDNEY FAILURE, UNSPECIFIED (2) Abnormal LFTs Code(s): R94.5 - ABNORMAL RESULTS OF LIVER FUNCTION STUDIES (3) Sepsis Code(s): A41.9 - SEPSIS, UNSPECIFIED ORGANISM Qualifiers: Sepsis type: sepsis due to unspecified organism Qualified Code(s): A41.9 - Sepsis, unspecified organism (4) Hypernatremia Code(s): E87.0 - HYPEROSMOLALITY AND HYPERNATREMIA (5) Elevated troponin Code(s): R74.8 - ABNORMAL LEVELS OF OTHER SERUM ENZYMES Assessment/Plan -renal on board -cont to trend BUN/Cr, monitor urine output -FC care -sodium trend down, cont with 1/2 NS IVF -cont levophed -wbc trend down, cont IV ABT, ID on board -pt on ASA, trop trending down
[2018-06-28] MEDS: CHLORHEXIDINE GLUCONATE 4% CLEANSER FOR DECOLONIZATION TP SCH (21:25)
[2018-06-29] MEDS ORDERED: PIPERACILLIN/TAZOBACTAM 2.25 GM VIAL IVPB ONE ×3 (00:10→18:57)
[2018-06-29] MEDS ORDERED: DEXTROSE 5%-WATER - 50 ML IVPB ONE ×3 (00:10→18:57)
[2018-06-29] MEDS: PIPERACILLIN/TAZOB 2.25 GM 2.25 GM in DEXTROSE 5%-WATER - 50 ML IVPB SCH ×3 (01:23→19:00)
--- NOTE | 2018-06-29 04:37 | PN ---
Physical Exam: ICU Team SUBJECTIVE: Patient seen and examined at bed side , moaning , non verbal , no acute events over night , maintating BP on levofed , and tube feed. on morphine for comfort . OBJECTIVE: Vital Signs Period Temp Pulse Resp BP Sys/Younger Pulse Ox Last 24 Hr 98.9 F-99.0 F 69-85 12-16 87-110/56-66 100-100 GENERAL: Somnolent, withdraws to tactile stimuli and moaning , non-verbal at baseline HEAD: NC/At EYES: PERRLA, ENT: NGT in place; Hearing grossly normal, NECK: R IJ in place, supple LUNGS: decreased breath sounds at beases and poor inspiratory effort, protecting airway, HEART: Regular rate and rhythm, normal S1 and S2, no murmurs appreciated, peripheral pulses normal and equal bilaterally ABDOMEN: Soft, non-distended; normoactive bowel sounds. EXTREMITIES : no edema. No clubbing or cyanosis NEUROLOGICAL: Withdraws to painful stimuli, not alert, unable to assess orientation SKIN: Warm, Dry Laboratory Results - last 24 hr 06/28/18 06/28/18 05:30 05:30 WBC 8.8 RBC 3.54 L Hgb 10.3 L Hct 32.5 MCV 91.8 MCH 29.0 MCHC 31.6 L RDW 15.3 Plt Count 85 L MPV 11.6 H Absolute Neuts (auto) 7.4 Neutrophils % 84.7 H Neutrophils % (Manual) 74.0 Band Neutrophils % 4.0 Lymphocytes % 10.1 D Lymphocytes % (Manual) 8.0 Monocytes % 3.2 L Monocytes % (Manual) 1 L Eosinophils % 1.8 Eosinophils % (Manual) 2.0 Basophils % 0.2 Basophils % (Manual) 0.0 Myelocytes % (Man) 0 Promyelocytes % (Man) 0 Blast Cells % (Manual) 0 Nucleated RBC % 0 Metamyelocytes 1 D Hypochromia 0 Platelet Estimate Decreased Polychromasia 1+ Poikilocytosis 0 Basophilic Stippling 1+ Anisocytosis 2+ Microcytosis 0 Macrocytosis 2+ Spherocytes 2+ Sodium 154 H Potassium 3.5 Chloride 123 H Carbon Dioxide 24 Anion Gap 7 L BUN 71 H Creatinine 1.9 H Creat Clearance w eGFR 25.70 Random Glucose 172 H Calcium 7.7 L Phosphorus 2.2 L Magnesium 2.3 Total Bilirubin 1.0 AST 76 H ALT 238 H Alkaline Phosphatase 168 H Total Protein 4.7 L Albumin 1.8 L TSH 2.47 Active Medications Generic Name Dose Route Start Last Admin Trade Name Freq PRN Reason Stop Dose Admin Aspirin 150 mg 06/24/18 10:00 06/28/18 10:00 Asa - [place] 150 mg DAILY [facility] Administration Benztropine Mesylate 2 mg 06/23/18 22:00 06/28/18 21:24 Cogentin - PO 2 mg BID [facility] Administration Bisacodyl 10 mg 06/25/18 10:06 Dulcolax Suppository - [place] PRN PRN CONSTIPATION Chlorhexidine Gluconate 1 applic 06/23/18 22:00 06/28/18 21:25 Hibiclens For Decolonization - TP 1 applic HS [facility] Administration Clonazepam 0.5 mg 06/28/18 22:00 06/28/18 21:35 Klonopin - PO 0.5 mg BID [facility] Administration Heparin Sodium (Porcine) 5,000 unit 06/23/18 22:00 06/28/18 21:25 Heparin - SQ 5,000 unit BID [facility] Administration Norepinephrine Bitartrate 4, 500 mls @ 37.5 mls/hr 06/23/18 21:15 06/27/18 23 :00 000 mcg/ Dextrose IV 5 mcg/min TITR [facility] 37.5 mls/hr Titration Protocol 5 MCG/MIN Levofloxacin 250 mg in 50 mls @ 50 mls/hr 06/24/18 12:00 06/28/18 10:00 Levaquin 250 Mg Premixed Ivpb - IVPB 50 mls/hr Q2D@1000 [facility] Administration Protocol Famotidine/Sodium Chloride 20 mg in 50 mls @ 100 mls/hr 06/24/18 11:45 21:22 Pepcid 20 Mg Premixed Ivpb - IVPB 100 mls/hr BID [facility] Administration Piperacillin Sod/Tazobactam 50 mls @ 100 mls/hr 06/25/18 11:45 06/29/18 01:23 Sod 2.25 gm/ Dextrose IVPB 100 mls/hr Q8H-IV [facility] Administration Protocol Morphine Sulfate 2 mg 06/28/18 10:30 Morphine Injection - IVPUSH Q2H PRN respiratory rate >20 or agonal Polyethylene Glycol 17 gm 06/25/18 10:15 12/22/18 11:41 Miralax (For Daily Use) - PO Not Given DAILY [facility] Ranolazine 500 mg 06/23/18 22:00 06/28/18 21:22 Ranexa - PO 500 mg BID [facility] Administration Tramadol HCl 100 mg 06/23/18 22:00 06/28/18 21:23 Ultram - PO 100 mg TID [facility] Administration CBC, BMP 06/29/18 05:15 06/29/18 05:15 ASSESSMENT/PLAN: 77 year old female with a PMH significant for Parkinson's disease, HTN, HLD presented to the ED from [facility] in respiratory distress.. She was admitted to the ICU for treatment of sepsis due to aspiration PNA . #Neuro * Anxiety * Klonopin BID -Acute Pain * Tramadol PRN through NG tube #CV * HTN hx * Hypotension * currently on levophed due to septic shock-hold antihypertensives * Pressors to be titrated to MAP > 65 * Will continue to resuscitate with IVF -A-fib * continue Aspirin * Currently rate controlled #GI * Protonix for GI PPx * KUB did not show free air * on tube feed @ 30 #Nutrition * TF w/ free water flushes continued now that pressor usage has decreased * Reordered per most recent [employer] recommendations * On bowel regimen # * saldaña with decent urine output and some sediment * Will continue to monitory Uop and Cr * daily weight , * i&O #Electrolytes -Hypernatremia * Improving * IVF per nephrology (1/2NS) -Hypokalemia, resolved #HEME * Hgb 10.8 -> 10.1 -> 11.4 * DVT Ppx SQ hep #ID * continue Abx per ID aosyn * urine antigens negative * Patient febrile today * zavala cx repeat #Dispo: Patient on levophed. Will continue to require ICU care #Code status DNR/DNI Visit type - Emergency Visit Emergency Visit: Yes ED Registration Date: 06/23/18 Care time: The patient presented to the Emergency Department on the above date and was hospitalized for further evaluation of their emergent condition. - New Patient This patient is new to me today: No - Critical Care Critical Care patient: Yes Total Critical Care Time (in minutes): 45 Critical Care Statement: The care of this patient involved high complexity decision making to prevent further life threatening deterioration of the patient 's condition and/or to evaluate & treat vital organ system(s) failure or risk of failure.
[2018-06-29] MEDS: traMADol HCL 50 MG TABLET PO SCH ×3 (05:25→22:30)
[2018-06-29] MEDS: NOREPINEPHRINE BITARTRATE 4,000 MCG in DEXTROSE 5%-WATER - 496 ML IV SCH ×3 (05:26→21:30)
[2018-06-29 06:00] LABS: BASO % 0.2 % (0-2.0); EOS % 1.1 % (0-4.5); HEMATOCRIT 31.1 % (32.4-45.2); HEMOGLOBIN 9.9 GM/dL (10.7-15.3); LYMPH % 7.9 % (8-40); MCH 29.2 pg (25.7-33.7); MCHC 31.8 g/dl (32.0-36.0); MEAN CELL VOLUME 91.9 fl (80-96); MEAN PLT VOLUME 11.5 fl (7.5-11.1); MONO % 3.8 % (3.8-10.2); PLATELET COUNT 103 K/MM3 (134-434); RBC 3.39 M/mm3 (3.60-5.2); RDW 15.4 % (11.6-15.6); WHITE BLOOD COUNT 10.8 K/mm3 (4.0-10.0)
[2018-06-29 06:30] LABS: ALBUMIN 1.6 g/dl (3.4-5.0); ALK PHOS 152 U/L (45-117); ANION GAP 6 MMOL/L (8-16); BLOOD UREA NITROGEN 58 mg/dL (7-18); CALCIUM 7.4 mg/dL (8.5-10.1); CHLORIDE 122 mmol/L (98-107); CO2 27 mmol/L (21-32); CREATININE 1.6 mg/dL (0.55-1.3); GLUCOSE,RANDOM 137 mg/dL (74-106); MAGNESIUM 2.1 mg/dL (1.8-2.4); PHOSPHOROUS 3.6 mg/dL (2.5-4.9); POTASSIUM 3.8 mmol/L (3.5-5.1); SGOT/AST 53 U/L (15-37); SGPT/ALT 194 U/L (13-61); SODIUM 154 mmol/L (136-145); TOT PROT 4.8 g/dl (6.4-8.2)
--- NOTE | 2018-06-29 08:50 | PN ---
Progress Note, Physician Chief Complaint: Pt on ventimask; does not respond to verbal stimuli History of Present Illness: 77yo F with history of HTN, dementia, Advanced Parkinson's dz, CAD with remote hx PCI LAD, previous UTIs and PNA presenting from [facility] with less responsiveness. Patient is nonverbal at baseline but has becoming progressively less responsive over the past three or four days. [facility] reports that the patient has had abnormal vitals with a fever, elevated RR, and elevated BP. Patient brought in by EMS. She is unable to provide any history. Upon admission to the ED, she was found to have a fever of 104.7, BP of 80/50, R 34. Labs notable for WBC of 29.5, BUN/Cr 113/5.5, Na 164, AST/ALT 217/109, UA +WBC, and CXR with possible infiltrates. She was given a dose of Vancomycin and Zosyn, IV apap, 3L NS. Temperature went down to 101.3, spo2 96% on non- rebreather. Patient has been admitted to ICU, patient is DNI/DNR. Patient's son wants goal of care to be comfort and not try any "heroic" measures. She is on pressors in the ICU, in renal failure and with elevated TnI. - Current Medication List Current Medications: Active Medications Aspirin (Asa -) 150 mg [place] DAILY [facility] Last Admin: 06/28/18 10:00 Dose: 150 mg Benztropine Mesylate (Cogentin -) 2 mg PO BID [facility] Last Admin: 06/28/18 21:24 Dose: 2 mg Bisacodyl (Dulcolax Suppository -) 10 mg [place] PRN PRN PRN Reason: CONSTIPATION Chlorhexidine Gluconate (Hibiclens For Decolonization -) 1 applic TP HS [facility] Last Admin: 06/28/18 21:25 Dose: 1 applic Clonazepam (Klonopin -) 0.5 mg PO BID [facility] Last Admin: 06/28/18 21:35 Dose: 0.5 mg Heparin Sodium (Porcine) (Heparin -) 5,000 unit SQ BID [facility] Last Admin: 06/28/18 21:25 Dose: 5,000 unit Norepinephrine Bitartrate 4, (000 mcg/ Dextrose) 500 mls @ 37.5 mls/hr IV TITR [facility]; Protocol Last Admin: 06/29/18 05:26 Dose: Not Given Levofloxacin (Levaquin 250 Mg Premixed Ivpb -) 250 mg in 50 mls @ 50 mls/hr IVPB Q2D@1000 [facility]; Protocol Last Admin: 06/28/18 10:00 Dose: 50 mls/hr Famotidine/Sodium Chloride (Pepcid 20 Mg Premixed Ivpb -) 20 mg in 50 mls @ 100 mls/hr IVPB BID [facility] Last Admin: 06/28/18 21:22 Dose: 100 mls/hr Piperacillin Sod/Tazobactam (Sod 2.25 gm/ Dextrose) 50 mls @ 100 mls/hr IVPB Q8H-IV [facility]; Protocol Last Admin: 06/29/18 01:23 Dose: 100 mls/hr Morphine Sulfate (Morphine Sulfate) 2 mg IVPUSH Q2H PRN PRN Reason: respiratory rate >20 or agonal Polyethylene Glycol (Miralax (For Daily Use) -) 17 gm PO DAILY [facility] Last Admin: 06/28/18 11:41 Dose: Not Given Ranolazine (Ranexa -) 500 mg PO BID [facility] Last Admin: 06/28/18 21:22 Dose: 500 mg Tramadol HCl (Ultram -) 100 mg PO TID [facility] Last Admin: 06/29/18 05:25 Dose: 100 mg - Objective Vital Signs: Vital Signs Temperature 98.2 F 06/29/18 04:00 Pulse Rate 76 06/29/18 07:00 Respiratory Rate 13 06/29/18 07:00 Blood Pressure 97/55 L 06/29/18 07:00 O2 Sat by Pulse Oximetry (%) 99 06/29/18 08:05 Constitutional: Yes: Thin, Other (little response to verbal or physical stimuli) Eyes: Yes: WNL HENT: Yes: Other Neck: Yes: WNL Cardiovascular: Yes: S1 (varies in intensity), S2 Respiratory: Yes: Diminished (left base), On Venti-Mask Gastrointestinal: Yes: Soft ...Rectal Exam: Yes: Other Genitourinary: No: Anuria Musculoskeletal: Yes: Muscle Weakness Extremities: Yes: Cool Edema: Yes Peripheral Pulses WNL: No Peripheral Pulses: Left Doralis Pedis: 1+, Right Dorsalis Pedis: 1+ Neurological: Yes: Unresponsive Psychiatric: Yes: Other (hx dementia; presently unresponsive) Labs: CBC, BMP 06/29/18 05:15 06/29/18 05:15 INR, PTT INR 1.28 (0.83-1.09) H 06/23/18 19:00 - ....Imaging Chest X-ray: Image Reviewed EKG: Image Reviewed Problem List - Problems (1) Septic shock Assessment/Plan: Remains unresponsive. On antibiotics. Still on norepinephrine, fluids. Hyperdynamic LVEF on ECHO. F/u BUN/Cr, electrolytes, Is and Os. Code(s): A41.9 - SEPSIS, UNSPECIFIED ORGANISM; R65.21 - SEVERE SEPSIS WITH SEPTIC SHOCK (2) Abnormal LFTs Code(s): R94.5 - ABNORMAL RESULTS OF LIVER FUNCTION STUDIES (3) Coronary artery disease Assessment/Plan: Hx PCI. On ASA, Ranexa. Code(s): I25.10 - ATHSCL HEART DISEASE OF [place] CORONARY ARTERY W/O ANG PCTRS (4) DNR (do not resuscitate) Code(s): Z66 - DO NOT RESUSCITATE (5) Elevated troponin Assessment/Plan: Demand ischemia from hypotension due to septic shock Code(s): R74.8 - ABNORMAL LEVELS OF OTHER SERUM ENZYMES (6) Hypernatremia Code(s): E87.0 - HYPEROSMOLALITY AND HYPERNATREMIA (7) Parkinson disease Code(s): G20 - PARKINSON'S DISEASE Assessment/Plan CCU time spent examining pt, formulating plan: 35 minutes.
[2018-06-29] MEDS ORDERED: PT OWN MED DRAWER 7, Y5N ONE (08:55)
[2018-06-29] MEDS: FAMOTIDINE 20 MG/50 ML IVPB 20 MG/50 ML MG IVPB SCH ×2 (09:08→22:08)
[2018-06-29] MEDS: RANOLAZINE E.R. 500 MG TABLET (FP) PO SCH (09:08)
[2018-06-29] MEDS: ASPIRIN 300 MG SUPP.RECT PR SCH (09:08)
[2018-06-29] MEDS: HEPARIN NA (PORCINE) 5,000 UNITS/ML 1ML VIAL SQ SCH ×2 (09:09→22:09)
[2018-06-29] MEDS: BENZTROPINE MESYLATE 2 MG TABLET PO SCH ×2 (09:09→22:30)
[2018-06-29] MEDS: clonazePAM 0.5 MG TABLET PO SCH ×2 (09:17→22:10)
--- NOTE | 2018-06-29 09:18 | PN ---
Progress Note, Physician - Current Medication List Current Medications: Active Medications Aspirin (Asa -) 150 mg [place] DAILY [facility] Last Admin: 06/29/18 09:08 Dose: 150 mg Benztropine Mesylate (Cogentin -) 2 mg PO BID [facility] Last Admin: 06/29/18 09:09 Dose: 2 mg Bisacodyl (Dulcolax Suppository -) 10 mg [place] PRN PRN PRN Reason: CONSTIPATION Chlorhexidine Gluconate (Hibiclens For Decolonization -) 1 applic TP HS [facility] Last Admin: 06/28/18 21:25 Dose: 1 applic Clonazepam (Klonopin -) 0.5 mg PO BID [facility] Last Admin: 06/29/18 09:17 Dose: 0.5 mg Heparin Sodium (Porcine) (Heparin -) 5,000 unit SQ BID [facility] Last Admin: 06/29/18 09:09 Dose: 5,000 unit Norepinephrine Bitartrate 4, (000 mcg/ Dextrose) 500 mls @ 37.5 mls/hr IV TITR [facility]; Protocol Last Admin: 06/29/18 05:26 Dose: Not Given Levofloxacin (Levaquin 250 Mg Premixed Ivpb -) 250 mg in 50 mls @ 50 mls/hr IVPB Q2D@1000 [facility]; Protocol Last Admin: 06/28/18 10:00 Dose: 50 mls/hr Famotidine/Sodium Chloride (Pepcid 20 Mg Premixed Ivpb -) 20 mg in 50 mls @ 100 mls/hr IVPB BID [facility] Last Admin: 06/29/18 09:08 Dose: 100 mls/hr Piperacillin Sod/Tazobactam (Sod 2.25 gm/ Dextrose) 50 mls @ 100 mls/hr IVPB Q8H-IV [facility]; Protocol Last Admin: 06/29/18 09:07 Dose: 100 mls/hr Morphine Sulfate (Morphine Sulfate) 2 mg IVPUSH Q2H PRN PRN Reason: respiratory rate >20 or agonal Polyethylene Glycol (Miralax (For Daily Use) -) 17 gm PO DAILY [facility] Last Admin: 06/28/18 11:41 Dose: Not Given Ranolazine (Ranexa -) 500 mg PO BID [facility] Last Admin: 06/29/18 09:08 Dose: 500 mg Tramadol HCl (Ultram -) 100 mg PO TID [facility] Last Admin: 06/29/18 05:25 Dose: 100 mg - Objective Vital Signs: Vital Signs Temperature 98.2 F 06/29/18 04:00 Pulse Rate 76 06/29/18 07:00 Respiratory Rate 13 06/29/18 07:00 Blood Pressure 97/55 L 06/29/18 07:00 O2 Sat by Pulse Oximetry (%) 99 06/29/18 08:05 Cardiovascular: Yes: Regular Rate and Rhythm Respiratory: Yes: On Nasal O2, Rhonchi Gastrointestinal: Yes: Normal Bowel Sounds, Soft Labs: CBC, BMP 06/29/18 05:15 06/29/18 05:15 INR, PTT INR 1.28 (0.83-1.09) H 06/23/18 19:00 Problem List - Problems (1) Sepsis Code(s): A41.9 - SEPSIS, UNSPECIFIED ORGANISM Qualifiers: Sepsis type: sepsis due to unspecified organism Qualified Code(s): A41.9 - Sepsis, unspecified organism (2) Hypernatremia Code(s): E87.0 - HYPEROSMOLALITY AND HYPERNATREMIA (3) DIXON (acute kidney injury) Code(s): N17.9 - ACUTE KIDNEY FAILURE, UNSPECIFIED (4) Parkinson disease Code(s): G20 - PARKINSON'S DISEASE (5) Abnormal LFTs Code(s): R94.5 - ABNORMAL RESULTS OF LIVER FUNCTION STUDIES (6) Elevated troponin Code(s): R74.8 - ABNORMAL LEVELS OF OTHER SERUM ENZYMES Assessment/Plan - Problems (1) DIXON (acute kidney injury) Assessment/Plan: renal on board hypokalemia -repleted Code(s): N17.9 - ACUTE KIDNEY FAILURE, UNSPECIFIED (2) Hypernatremia Assessment/Plan: 1/2 NS fluids Code(s): E87.0 - HYPEROSMOLALITY AND HYPERNATREMIA (3) Sepsis Assessment/Plan: levophed abx- bibasilar PNA levaquin and zosyn gi dvt ppx ng tube for feeds - nepro Code(s): A41.9 - SEPSIS, UNSPECIFIED ORGANISM Qualifiers: Sepsis type: sepsis due to unspecified organism Qualified Code(s): A41.9 - Sepsis, unspecified organism (4) Elevated troponin Assessment/Plan: secondary to demand ischemia and hypotension started on aspirin echo done Code(s): R74.8 - ABNORMAL LEVELS OF OTHER
--- NOTE | 2018-06-29 09:43 | PN ---
Teaching Attending Note Name of Resident: Octavio Greene ATTENDING PHYSICIAN STATEMENT I saw and evaluated the patient. I reviewed the resident's note and discussed the case with the resident. I agree with the resident's findings and plan as documented. SUBJECTIVE: Pt seen and examined in the ICU. Remains lethargic on levophed gtt. Breathing more labored today. OBJECTIVE: Vital Signs Period Temp Pulse Resp BP Sys/Younger Pulse Ox Last 24 Hr 98.2 F-99.0 F 71-85 13-18 87-104/55-69 99-100 Intake & Output 06/26/18 06/27/18 06/28/18 06/29/18 23:59 23:59 23:59 23:59 Intake Total 1674 2115 2036.5 354 Output Total 3350 1250 1300 Balance -1676 865 736.5 354 Gen: lethargic, tachypneic Heart: RRR Lung: scattered rhonchi Abd: soft, nontender Ext: + edema CBC, BMP 06/29/18 05:15 06/29/18 05:15 Active Medications Aspirin (Asa -) 150 mg [place] DAILY [facility] Last Admin: 06/29/18 09:08 Dose: 150 mg Benztropine Mesylate (Cogentin -) 2 mg PO BID [facility] Last Admin: 06/29/18 09:09 Dose: 2 mg Bisacodyl (Dulcolax Suppository -) 10 mg [place] PRN PRN PRN Reason: CONSTIPATION Chlorhexidine Gluconate (Hibiclens For Decolonization -) 1 applic TP HS [facility] Last Admin: 06/28/18 21:25 Dose: 1 applic Clonazepam (Klonopin -) 0.5 mg PO BID [facility] Last Admin: 06/29/18 09:17 Dose: 0.5 mg Heparin Sodium (Porcine) (Heparin -) 5,000 unit SQ BID [facility] Last Admin: 06/29/18 09:09 Dose: 5,000 unit Norepinephrine Bitartrate 4, (000 mcg/ Dextrose) 500 mls @ 37.5 mls/hr IV TITR [facility]; Protocol Last Admin: 06/29/18 05:26 Dose: Not Given Levofloxacin (Levaquin 250 Mg Premixed Ivpb -) 250 mg in 50 mls @ 50 mls/hr IVPB Q2D@1000 [facility]; Protocol Last Admin: 06/28/18 10:00 Dose: 50 mls/hr Famotidine/Sodium Chloride (Pepcid 20 Mg Premixed Ivpb -) 20 mg in 50 mls @ 100 mls/hr IVPB BID [facility] Last Admin: 06/29/18 09:08 Dose: 100 mls/hr Piperacillin Sod/Tazobactam (Sod 2.25 gm/ Dextrose) 50 mls @ 100 mls/hr IVPB Q8H-IV [facility]; Protocol Last Admin: 06/29/18 09:07 Dose: 100 mls/hr Morphine Sulfate (Morphine Sulfate) 2 mg IVPUSH Q2H PRN PRN Reason: respiratory rate >20 or agonal Polyethylene Glycol (Miralax (For Daily Use) -) 17 gm PO DAILY [facility] Last Admin: 06/28/18 11:41 Dose: Not Given Ranolazine (Ranexa -) 500 mg PO BID [facility] Last Admin: 06/29/18 09:08 Dose: 500 mg Tramadol HCl (Ultram -) 100 mg PO TID [facility] Last Admin: 06/29/18 05:25 Dose: 100 mg ASSESSMENT AND PLAN: Pneumonia likely Aspiration UTI Septic Shock Acute Kidney Injury Hypernatremia Lactic Acidosis Elevated LFTs likely Ischemic Injury +Troponins likely Demand Ischemia Thrombocytopenia HTN Hyperlipidemia Parkinsons Disease - continue antibiotics - IVF to keep CVP 8-12 - taper pressors to maintain MAP >65 - trend LFTs - monitor urine output, creatinine - aspiration precautions - O2 to keep SPo2 >90% - monitor CBC - DVT/GI prophylaxis - continue ICU monitoring - pt DNR/DNI, recommend morphine as needed for respiratory effort critical care time spent in reviewing chart, evaluating patient and formulating plan 35 min
[2018-06-29 10:47] LABS: ANISOCYTOSIS 1+; MACROCYTOSIS 0; PLATELET ESTIMATE DECREASED
[2018-06-29] MEDS ORDERED: ACETAMINOPHEN 1000 MG/100 ML VIAL (NON FORMULARY) IVPB ONE (12:20)
--- NOTE | 2018-06-29 12:33 | PN ---
Progress Note, Physician History of Present Illness: Lethargic, moaning. Not verbally responsive. Remains hypotensive on levophed Low grade temp 100.4 WBC slightly elevated 10.8 BC (-) Urine c/s Klebsiella - Current Medication List Current Medications: Active Medications Aspirin (Asa -) 150 mg [place] DAILY [facility] Last Admin: 06/29/18 09:08 Dose: 150 mg Benztropine Mesylate (Cogentin -) 2 mg PO BID [facility] Last Admin: 06/29/18 09:09 Dose: 2 mg Bisacodyl (Dulcolax Suppository -) 10 mg [place] PRN PRN PRN Reason: CONSTIPATION Chlorhexidine Gluconate (Hibiclens For Decolonization -) 1 applic TP HS [facility] Last Admin: 06/28/18 21:25 Dose: 1 applic Clonazepam (Klonopin -) 0.5 mg PO BID [facility] Last Admin: 06/29/18 09:17 Dose: 0.5 mg Heparin Sodium (Porcine) (Heparin -) 5,000 unit SQ BID [facility] Last Admin: 06/29/18 09:09 Dose: 5,000 unit Norepinephrine Bitartrate 4, (000 mcg/ Dextrose) 500 mls @ 37.5 mls/hr IV TITR [facility]; Protocol Last Admin: 06/29/18 05:26 Dose: Not Given Levofloxacin (Levaquin 250 Mg Premixed Ivpb -) 250 mg in 50 mls @ 50 mls/hr IVPB Q2D@1000 [facility]; Protocol Last Admin: 06/28/18 10:00 Dose: 50 mls/hr Famotidine/Sodium Chloride (Pepcid 20 Mg Premixed Ivpb -) 20 mg in 50 mls @ 100 mls/hr IVPB BID [facility] Last Admin: 06/29/18 09:08 Dose: 100 mls/hr Piperacillin Sod/Tazobactam (Sod 2.25 gm/ Dextrose) 50 mls @ 100 mls/hr IVPB Q8H-IV [facility]; Protocol Last Admin: 06/29/18 09:07 Dose: 100 mls/hr Morphine Sulfate (Morphine Sulfate) 2 mg IVPUSH Q2H PRN PRN Reason: respiratory rate >20 or agonal Polyethylene Glycol (Miralax (For Daily Use) -) 17 gm PO DAILY [facility] Last Admin: 06/28/18 11:41 Dose: Not Given Ranolazine (Ranexa -) 500 mg PO BID [facility] Last Admin: 06/29/18 09:08 Dose: 500 mg Tramadol HCl (Ultram -) 100 mg PO TID [facility] Last Admin: 06/29/18 05:25 Dose: 100 mg - Objective Vital Signs: Vital Signs Temperature 98.2 F 06/29/18 04:00 Pulse Rate 76 06/29/18 07:00 Respiratory Rate 13 06/29/18 07:00 Blood Pressure 97/55 L 06/29/18 07:00 O2 Sat by Pulse Oximetry (%) 99 06/29/18 08:05 Constitutional: Yes: No Distress Eyes: Yes: Conjunctiva Clear Cardiovascular: Yes: Regular Rate and Rhythm, S1, S2 Respiratory: Yes: Diminished Gastrointestinal: Yes: Normal Bowel Sounds, Soft. No: Tenderness Edema: Yes Labs: CBC, BMP 06/29/18 05:15 06/29/18 05:15 INR, PTT INR 1.28 (0.83-1.09) H 06/23/18 19:00 Assessment/Plan Septic shock Bibasilar Pneumonia UTI Renal failure improved Elevated LFTs Lactic acidosis Parkinsonism OBS Continue zosyn Pressors Reculture for recurrent temp Hemodynamic monitoring Prognosis guarded
[2018-06-29] MEDS: MORPHINE SULFATE 2 MG/ML VIAL IVPUSH PRN ×2 (13:30→22:09)
--- NOTE | 2018-06-29 14:41 | PN ---
Progress Note (short form) - Note Progress Note: covering Dr Gonsalez Problems 1. DIXON 2. hypernatremia 3. sepsis 4. PNA 5. r/o UTI 6. lactic acidosis 7. parkinsons 8. positive troponins 9. HTN 10. HLD 11. mild hydro 12. renal cyst Current Medications Aspirin (Asa -) 150 mg [place] DAILY [facility] Last Admin: 06/29/18 09:08 Dose: 150 mg Benztropine Mesylate (Cogentin -) 2 mg PO BID [facility] Last Admin: 06/29/18 09:09 Dose: 2 mg Bisacodyl (Dulcolax Suppository -) 10 mg [place] PRN PRN PRN Reason: CONSTIPATION Chlorhexidine Gluconate (Hibiclens For Decolonization -) 1 applic TP HS [facility] Last Admin: 06/28/18 21:25 Dose: 1 applic Clonazepam (Klonopin -) 0.5 mg PO BID [facility] Last Admin: 06/29/18 09:17 Dose: 0.5 mg Heparin Sodium (Porcine) (Heparin -) 5,000 unit SQ BID [facility] Last Admin: 06/29/18 09:09 Dose: 5,000 unit Norepinephrine Bitartrate 4, (000 mcg/ Dextrose) 500 mls @ 37.5 mls/hr IV TITR [facility]; Protocol Last Admin: 06/29/18 05:26 Dose: Not Given Famotidine/Sodium Chloride (Pepcid 20 Mg Premixed Ivpb -) 20 mg in 50 mls @ 100 mls/hr IVPB BID [facility] Last Admin: 06/29/18 09:08 Dose: 100 mls/hr Piperacillin Sod/Tazobactam (Sod 2.25 gm/ Dextrose) 50 mls @ 100 mls/hr IVPB Q8H-IV [facility]; Protocol Last Admin: 06/29/18 09:07 Dose: 100 mls/hr Morphine Sulfate (Morphine Sulfate) 2 mg IVPUSH Q2H PRN PRN Reason: respiratory rate >20 or agonal Last Admin: 06/29/18 13:30 Dose: 2 mg Polyethylene Glycol (Miralax (For Daily Use) -) 17 gm PO DAILY [facility] Last Admin: 06/28/18 11:41 Dose: Not Given Ranolazine (Ranexa -) 500 mg PO BID [facility] Last Admin: 06/29/18 09:08 Dose: 500 mg Tramadol HCl (Ultram -) 100 mg PO TID [facility] Last Admin: 06/29/18 14:00 Dose: 100 mg Last Vital Signs Temp Pulse Resp BP Pulse Ox 98.2 F 76 13 97/55 L 99 06/29/18 04:00 06/29/18 07:00 06/29/18 07:00 06/29/18 07:00 06/29/18 08:05 unresponsive oral mucosa dry heart reg abd soft no guarding to palpation ext no edema CBC, BMP 06/29/18 05:15 06/29/18 05:15 CBC, BMP 06/28/18 05:30 06/28/18 05:30 06/27/18 06/28/18 05:30 05:30 Sodium 158 H 154 H Potassium 3.3 L 3.5 Chloride 126 H 123 H BUN 90 H 71 H Creatinine 2.5 H 1.9 H clinically the same labs improving gradually hydration/hypernatremia/renal failure Septic shock Bibasilar Pneumonia UTI Renal failure improved Elevated LFTs Lactic acidosis Parkinsonism OBS Plan Continue zosyn Pressors Reculture for recurrent temp Hemodynamic monitoring Prognosis guarded free water
[2018-06-29] MEDS ORDERED: NOREPINEPHRINE BITARTRATE 4 MG/4 ML ML IV ONE (15:32)
[2018-06-29] MEDS: POLYETHYLENE GLYCOL 3350 119 GM BTL PO SCH (18:22)
[2018-06-29] MEDS: CHLORHEXIDINE GLUCONATE 4% CLEANSER FOR DECOLONIZATION TP SCH (22:09)
[2018-06-30] MEDS: RANOLAZINE E.R. 500 MG TABLET (FP) PO SCH ×3 (00:12→21:06)
[2018-06-30] MEDS ORDERED: DEXTROSE 5%-WATER - 50 ML IVPB ONE ×4 (00:26→17:27)
[2018-06-30] MEDS ORDERED: PIPERACILLIN/TAZOBACTAM 2.25 GM VIAL IVPB ONE ×4 (00:26→17:27)
[2018-06-30] MEDS: PIPERACILLIN/TAZOB 2.25 GM 2.25 GM in DEXTROSE 5%-WATER - 50 ML IVPB SCH ×3 (01:16→17:30)
[2018-06-30] MEDS: traMADol HCL 50 MG TABLET PO SCH ×2 (06:06→16:00)
--- NOTE | 2018-06-30 07:48 | PN ---
Physical Exam: SUBJECTIVE: Patient seen and examined. Aphasic not interactive OBJECTIVE: Vital Signs Period Temp Pulse Resp BP Sys/Younger Pulse Ox Last 24 Hr 98.5 F-100.4 F 67-96 12-20 78-125/49-70 80-99 GENERAL: Somnolent, withdraws to tactile stimuli does not open eyes (per son pt non-verbal at baseline but generally vocalizes) HEAD: No signs of trauma, normocephalic, atraumatic EYES: PERRLA, EOMI, sclera anicteric, conjunctiva clear ENT: NGT in place; Hearing grossly normal, nares patent, oropharynx clear without exudates NECK: R IJ in place, supple LUNGS: diffuse decreased breath sounds and poor inspiratory effort, protecting airway, bradypnea HEART: Regular rate and rhythm, normal S1 and S2, no murmurs appreciated, peripheral pulses normal and equal bilaterally ABDOMEN: Soft, non-distended; normoactive bowel sounds. EXTREMITIES : no edema. No clubbing or cyanosis NEUROLOGICAL: Withdraws to painful stimuli, not alert, unable to assess orientation SKIN: Warm, Dry Active Medications Generic Name Dose Route Start Last Admin Trade Name Freq PRN Reason Stop Dose Admin Aspirin 150 mg 06/24/18 10:00 06/29/18 09:08 Asa - MS 150 mg DAILY [facility] Administration Benztropine Mesylate 2 mg 06/23/18 22:00 06/29/18 22:30 Cogentin - PO 2 mg BID [facility] Administration Bisacodyl 10 mg 06/25/18 10:06 Dulcolax Suppository - [place] PRN PRN CONSTIPATION Chlorhexidine Gluconate 1 applic 06/23/18 22:00 06/29/18 22:09 Hibiclens For Decolonization - TP 1 applic HS [facility] Administration Clonazepam 0.5 mg 06/28/18 22:00 06/29/18 22:10 Klonopin - PO 0.5 mg BID [facility] Administration Heparin Sodium (Porcine) 5,000 unit 06/23/18 22:00 06/29/18 22:09 Heparin - SQ 5,000 unit BID [facility] Administration Norepinephrine Bitartrate 4, 500 mls @ 37.5 mls/hr 06/23/18 21:15 06/30/18 07 :00 000 mcg/ Dextrose IV 2 mcg/min TITR [facility] 15 mls/hr Titration Protocol 5 MCG/MIN Famotidine/Sodium Chloride 20 mg in 50 mls @ 100 mls/hr 06/24/18 11:45 22:08 Pepcid 20 Mg Premixed Ivpb - IVPB 100 mls/hr BID [facility] Administration Piperacillin Sod/Tazobactam 50 mls @ 100 mls/hr 06/25/18 11:45 06/30/18 01:16 Sod 2.25 gm/ Dextrose IVPB 100 mls/hr Q8H-IV [facility] Administration Protocol Morphine Sulfate 2 mg 06/29/18 04:47 06/29/18 22:09 Morphine Sulfate IVPUSH 2 mg Q2H PRN Administration respiratory rate >20 or agonal Polyethylene Glycol 17 gm 06/25/18 10:15 06/29/18 18:22 Miralax (For Daily Use) - PO Not Given DAILY [facility] Ranolazine 500 mg 06/23/18 22:00 06/30/18 00:12 Ranexa - PO 500 mg BID [facility] Administration Tramadol HCl 100 mg 06/23/18 22:00 06/30/18 06:06 Ultram - PO 100 mg TID [facility] Administration ASSESSMENT/PLAN: The patient is a 77F w/ a hx of aphasia and HTN who presented with with septic shock secondary to pneumonia. Neuro Anxiety -Klonopin BID Acute Pain -Tramadol PRN through NG tube CV HTN hx Hypotension -currently on levophed due to septic shock-hold antihypertensives -Pressors may be maintained but will not increase -Will continue to resuscitate with IVF A-fib -continue Aspirin -Currently rate controlled GI Protonix for GI PPx Nutrition -TF w/ free water flushes continued now that pressor usage has decreased -Reordered per most recent [employer] recommendations -On bowel regimen KARIN saldaña with decent urine output and some sediment -Will continue to monitory Uop and Cr Electrolytes Hypernatremia -Improving -IVF per nephrology (1/2NS) Hypokalemia -Repleted HEME DVT Ppx SQ hep ID continue Abx per ID -on Zosyn -Patient afebrile today LTD R IJ (06/23/2018) Saldaña (06/23/2018) Dispo: Patient on levophed. Will continue to require ICU care. Consult placed for palliative care to assist w/ goals of care discussion DNR/DNI Visit type - Emergency Visit Emergency Visit: Yes ED Registration Date: 06/23/18 Care time: The patient presented to the Emergency Department on the above date and was hospitalized for further evaluation of their emergent condition. - New Patient This patient is new to me today: No - Critical Care Critical Care patient: Yes Total Critical Care Time (in minutes): 35 Critical Care Statement: The care of this patient involved high complexity decision making to prevent further life threatening deterioration of the patient 's condition and/or to evaluate & treat vital organ system(s) failure or risk of failure.
--- NOTE | 2018-06-30 08:20 | PN ---
Progress Note, Physician Chief Complaint: remains hypotensive on pressors TELE: NSR, self limited run atrial tach - Current Medication List Current Medications: Active Medications Aspirin (Asa -) 150 mg [place] DAILY [facility] Last Admin: 06/29/18 09:08 Dose: 150 mg Benztropine Mesylate (Cogentin -) 2 mg PO BID [facility] Last Admin: 06/29/18 22:30 Dose: 2 mg Bisacodyl (Dulcolax Suppository -) 10 mg [place] PRN PRN PRN Reason: CONSTIPATION Chlorhexidine Gluconate (Hibiclens For Decolonization -) 1 applic TP HS [facility] Last Admin: 06/29/18 22:09 Dose: 1 applic Clonazepam (Klonopin -) 0.5 mg PO BID [facility] Last Admin: 06/29/18 22:10 Dose: 0.5 mg Heparin Sodium (Porcine) (Heparin -) 5,000 unit SQ BID [facility] Last Admin: 06/29/18 22:09 Dose: 5,000 unit Norepinephrine Bitartrate 4, (000 mcg/ Dextrose) 500 mls @ 37.5 mls/hr IV TITR [facility]; Protocol Last Titration: 06/30/18 07:00 Dose: 2 mcg/min, 15 mls/hr Famotidine/Sodium Chloride (Pepcid 20 Mg Premixed Ivpb -) 20 mg in 50 mls @ 100 mls/hr IVPB BID [facility] Last Admin: 06/29/18 22:08 Dose: 100 mls/hr Piperacillin Sod/Tazobactam (Sod 2.25 gm/ Dextrose) 50 mls @ 100 mls/hr IVPB Q8H-IV [facility]; Protocol Last Admin: 06/30/18 01:16 Dose: 100 mls/hr Morphine Sulfate (Morphine Sulfate) 2 mg IVPUSH Q2H PRN PRN Reason: respiratory rate >20 or agonal Last Admin: 06/29/18 22:09 Dose: 2 mg Polyethylene Glycol (Miralax (For Daily Use) -) 17 gm PO DAILY [facility] Last Admin: 06/29/18 18:22 Dose: Not Given Ranolazine (Ranexa -) 500 mg PO BID [facility] Last Admin: 06/30/18 00:12 Dose: 500 mg Tramadol HCl (Ultram -) 100 mg PO TID [facility] Last Admin: 06/30/18 06:06 Dose: 100 mg - Objective Vital Signs: Vital Signs Temperature 98.5 F 06/29/18 18:00 Pulse Rate 78 06/30/18 07:00 Respiratory Rate 13 06/30/18 06:00 Blood Pressure 86/49 L 06/30/18 07:00 O2 Sat by Pulse Oximetry (%) 92 L 06/29/18 21:00 Constitutional: Yes: No Distress Cardiovascular: Yes: Regular Rate and Rhythm Respiratory: Yes: Rhonchi Gastrointestinal: Yes: Soft Edema: No Labs: CBC, BMP 06/29/18 05:15 06/29/18 05:15 INR, PTT INR 1.28 (0.83-1.09) H 06/23/18 19:00 Laboratory Tests 06/29/18 06/29/18 05:15 05:15 WBC 10.8 H Hgb 9.9 L Plt Count 103 L D Sodium 154 H Potassium 3.8 Creatinine 1.6 H AST 53 H ALT 194 H Alkaline Phosphatase 152 H - ....Imaging EKG: Image Reviewed Problem List - Problems (1) Sepsis Code(s): A41.9 - SEPSIS, UNSPECIFIED ORGANISM Qualifiers: Sepsis type: sepsis due to unspecified organism Qualified Code(s): A41.9 - Sepsis, unspecified organism (2) DIXON (acute kidney injury) Code(s): N17.9 - ACUTE KIDNEY FAILURE, UNSPECIFIED (3) Elevated troponin Code(s): R74.8 - ABNORMAL LEVELS OF OTHER SERUM ENZYMES (4) Hypernatremia Code(s): E87.0 - HYPEROSMOLALITY AND HYPERNATREMIA (5) Coronary artery disease Code(s): I25.10 - ATHSCL HEART DISEASE OF [place] CORONARY ARTERY W/O ANG PCTRS (6) DNR (do not resuscitate) Code(s): Z66 - DO NOT RESUSCITATE Assessment/Plan IMP: Severe sepsis, septic shock with multisystem organ failure Advanced Parkinson's CAD w/ prior PCI Elevated TnI: secondary to demand ischemia in setting hypotension due to severe septic shock Hypernatremia DNR/DNI REC: 1. Pressors to maintain MAP 60mmHg 2. Broad spectrum abx as per Critical Care Team 3. DVT and GI prophylaxis 4. ASA 5. Echo with hyperdynamic LV c/w volume depletion/sepsis. 6. Free water repletion 7. Supportive measures for Rx of sepsis and comfort as per family wishes. Poor prognosis.
--- NOTE | 2018-06-30 08:46 | PN ---
Progress Note (short form) - Note Progress Note: chart reviewed remains on pressors poorly responsive Vital Signs Period Temp Pulse Resp BP Sys/Younger Pulse Ox Last 24 Hr 98.5 F-100.4 F 67-96 12-20 78-125/49-70 80-92 nonrebrether mask saldaña cor-rrr lungs decreased bs at bases abd firm, nt ext no edema CBC, BMP 06/29/18 05:15 06/29/18 05:15 Microbiology 06/23/18 22:31 Blood - Peripheral Venous Blood Culture - Final NO GROWTH AFTER 5 DAYS INCUBATION 06/23/18 19:00 Blood - Peripheral Venous Blood Culture - Final NO GROWTH AFTER 5 DAYS INCUBATION 06/23/18 17:55 Urine - Urine - Catheterized Urine Culture - Final Klebsiella Pneumoniae 06/24/18 18:20 Urine For Antigen Detection Legionella Antigen - Final 06/24/18 18:20 Urine For Antigen Detection Streptococcus pneumoniae Antigen (M - Final Current Medications Aspirin (Asa -) [address] DAILY [facility] Last Admin: 06/29/18 09:08 Dose: 150 mg Benztropine Mesylate (Cogentin -) 2 mg PO BID [facility] Last Admin: 06/29/18 22:30 Dose: 2 mg Bisacodyl (Dulcolax Suppository -) [address] PRN PRN PRN Reason: CONSTIPATION Chlorhexidine Gluconate (Hibiclens For Decolonization -) 1 applic TP HS [facility] Last Admin: 06/29/18 22:09 Dose: 1 applic Clonazepam (Klonopin -) 0.5 mg PO BID [facility] Last Admin: 06/29/18 22:10 Dose: 0.5 mg Heparin Sodium (Porcine) (Heparin -) 5,000 unit SQ BID [facility] Last Admin: 06/29/18 22:09 Dose: 5,000 unit Norepinephrine Bitartrate 4, (000 mcg/ Dextrose) 500 mls @ 37.5 mls/hr IV TITR [facility]; Protocol Last Titration: 06/30/18 07:00 Dose: 2 mcg/min, 15 mls/hr Famotidine/Sodium Chloride (Pepcid 20 Mg Premixed Ivpb -) 20 mg in 50 mls @ 100 mls/hr IVPB BID [facility] Last Admin: 06/29/18 22:08 Dose: 100 mls/hr Piperacillin Sod/Tazobactam (Sod 2.25 gm/ Dextrose) 50 mls @ 100 mls/hr IVPB Q8H-IV [facility]; Protocol Last Admin: 06/30/18 01:16 Dose: 100 mls/hr Morphine Sulfate (Morphine Sulfate) 2 mg IVPUSH Q2H PRN PRN Reason: respiratory rate >20 or agonal Last Admin: 06/29/18 22:09 Dose: 2 mg Polyethylene Glycol (Miralax (For Daily Use) -) 17 gm PO DAILY [facility] Last Admin: 06/29/18 18:22 Dose: Not Given Ranolazine (Ranexa -) 500 mg PO BID [facility] Last Admin: 06/30/18 00:12 Dose: 500 mg Tramadol HCl (Ultram -) 100 mg PO TID [facility] Last Admin: 06/30/18 06:06 Dose: 100 mg a/p sepsis pneumonia klebsiella UTI renal failure parkinsons disease continue zosyn remains on pressors overall prognosis is poor
[2018-06-30] MEDS: BENZTROPINE MESYLATE 2 MG TABLET PO SCH ×2 (10:05→21:06)
[2018-06-30] MEDS: FAMOTIDINE 20 MG/50 ML IVPB 20 MG/50 ML MG IVPB SCH ×2 (10:20→21:07)
[2018-06-30] MEDS: ASPIRIN 300 MG SUPP.RECT PR SCH (10:20)
[2018-06-30] MEDS: clonazePAM 0.5 MG TABLET PO SCH ×2 (10:20→21:06)
[2018-06-30] MEDS: HEPARIN NA (PORCINE) 5,000 UNITS/ML 1ML VIAL SQ SCH ×2 (10:20→21:06)
--- NOTE | 2018-06-30 11:25 | PN ---
Teaching Attending Note Name of Resident: Talon Nicholas ATTENDING PHYSICIAN STATEMENT I saw and evaluated the patient. I reviewed the resident's note and discussed the case with the resident. I agree with the resident's findings and plan as documented. SUBJECTIVE: Pt seen and examined in the ICU. Remains lethargic on levophed gtt. Receiving morphine IVP as needed for comfort. OBJECTIVE: Vital Signs Period Temp Pulse Resp BP Sys/Younger Pulse Ox Last 24 Hr 98.5 F-100.4 F 67-96 13-20 78-125/49-70 90-92 Intake & Output 06/27/18 06/28/18 06/29/18 06/30/18 23:59 23:59 23:59 23:59 Intake Total 2115 2036.5 1555.6 1047.1 Output Total 1250 1300 900 400 Balance 865 736.5 655.6 647.1 Gen: lethargic, mildly tachypneic Heart: RRR Lung: scattered rhonchi Abd: soft, nontender Ext: + edema CBC, BMP 06/29/18 05:15 06/29/18 05:15 Active Medications Aspirin (Asa -) 150 mg [place] DAILY [facility] Last Admin: 06/30/18 10:20 Dose: 150 mg Benztropine Mesylate (Cogentin -) 2 mg PO BID [facility] Last Admin: 06/29/18 22:30 Dose: 2 mg Bisacodyl (Dulcolax Suppository -) 10 mg [place] PRN PRN PRN Reason: CONSTIPATION Chlorhexidine Gluconate (Hibiclens For Decolonization -) 1 applic TP HS [facility] Last Admin: 06/29/18 22:09 Dose: 1 applic Clonazepam (Klonopin -) 0.5 mg PO BID [facility] Last Admin: 06/30/18 10:20 Dose: 0.5 mg Heparin Sodium (Porcine) (Heparin -) 5,000 unit SQ BID [facility] Last Admin: 06/30/18 10:20 Dose: 5,000 unit Norepinephrine Bitartrate 4, (000 mcg/ Dextrose) 500 mls @ 37.5 mls/hr IV TITR [facility]; Protocol Last Titration: 06/30/18 07:00 Dose: 2 mcg/min, 15 mls/hr Famotidine/Sodium Chloride (Pepcid 20 Mg Premixed Ivpb -) 20 mg in 50 mls @ 100 mls/hr IVPB BID [facility] Last Admin: 06/30/18 10:20 Dose: 100 mls/hr Piperacillin Sod/Tazobactam (Sod 2.25 gm/ Dextrose) 50 mls @ 100 mls/hr IVPB Q8H-IV [facility]; Protocol Last Admin: 06/30/18 10:21 Dose: 100 mls/hr Morphine Sulfate (Morphine Sulfate) 2 mg IVPUSH Q2H PRN PRN Reason: respiratory rate >20 or agonal Last Admin: 06/29/18 22:09 Dose: 2 mg Polyethylene Glycol (Miralax (For Daily Use) -) 17 gm PO DAILY [facility] Last Admin: 06/29/18 18:22 Dose: Not Given Ranolazine (Ranexa -) 500 mg PO BID [facility] Last Admin: 06/30/18 10:21 Dose: 500 mg Tramadol HCl (Ultram -) 100 mg PO TID [facility] Last Admin: 06/30/18 06:06 Dose: 100 mg ASSESSMENT AND PLAN: Pneumonia likely Aspiration UTI Septic Shock Acute Kidney Injury Hypernatremia Lactic Acidosis Elevated LFTs likely Ischemic Injury +Troponins likely Demand Ischemia Thrombocytopenia HTN Hyperlipidemia Parkinsons Disease - continue antibiotics - IVF to keep CVP 8-12 - taper pressors to maintain MAP >65 - trend LFTs - monitor urine output, creatinine - aspiration precautions - O2 to keep SPo2 >90% - DVT/GI prophylaxis - continue ICU monitoring - pt DNR/DNI, recommend morphine as needed for respiratory effort critical care time spent in reviewing chart, evaluating patient and formulating plan 35 min
[2018-06-30] MEDS ORDERED: PT OWN MED DRAWER 7, Y5N ONE (11:31)
--- NOTE | 2018-06-30 11:32 | PN ---
Progress Note, Physician Chief Complaint: patient seen and examined in icu dnr /dni on non rebreather mask on pressors and morphine drip - Current Medication List Current Medications: Active Medications Aspirin (Asa -) 150 mg [place] DAILY [facility] Last Admin: 06/30/18 10:20 Dose: 150 mg Benztropine Mesylate (Cogentin -) 2 mg PO BID [facility] Last Admin: 06/29/18 22:30 Dose: 2 mg Bisacodyl (Dulcolax Suppository -) 10 mg [place] PRN PRN PRN Reason: CONSTIPATION Chlorhexidine Gluconate (Hibiclens For Decolonization -) 1 applic TP HS [facility] Last Admin: 06/29/18 22:09 Dose: 1 applic Clonazepam (Klonopin -) 0.5 mg PO BID [facility] Last Admin: 06/30/18 10:20 Dose: 0.5 mg Heparin Sodium (Porcine) (Heparin -) 5,000 unit SQ BID [facility] Last Admin: 06/30/18 10:20 Dose: 5,000 unit Norepinephrine Bitartrate 4, (000 mcg/ Dextrose) 500 mls @ 37.5 mls/hr IV TITR [facility]; Protocol Last Titration: 06/30/18 07:00 Dose: 2 mcg/min, 15 mls/hr Famotidine/Sodium Chloride (Pepcid 20 Mg Premixed Ivpb -) 20 mg in 50 mls @ 100 mls/hr IVPB BID [facility] Last Admin: 06/30/18 10:20 Dose: 100 mls/hr Piperacillin Sod/Tazobactam (Sod 2.25 gm/ Dextrose) 50 mls @ 100 mls/hr IVPB Q8H-IV [facility]; Protocol Last Admin: 06/30/18 10:21 Dose: 100 mls/hr Morphine Sulfate (Morphine Sulfate) 2 mg IVPUSH Q2H PRN PRN Reason: respiratory rate >20 or agonal Last Admin: 06/29/18 22:09 Dose: 2 mg Polyethylene Glycol (Miralax (For Daily Use) -) 17 gm PO DAILY [facility] Last Admin: 06/29/18 18:22 Dose: Not Given Ranolazine (Ranexa -) 500 mg PO BID [facility] Last Admin: 06/30/18 10:21 Dose: 500 mg Tramadol HCl (Ultram -) 100 mg PO TID [facility] Last Admin: 06/30/18 06:06 Dose: 100 mg - Objective Vital Signs: Vital Signs Temperature 98.5 F 06/29/18 18:00 Pulse Rate 78 06/30/18 07:00 Respiratory Rate 13 06/30/18 06:00 Blood Pressure 86/49 L 06/30/18 07:00 O2 Sat by Pulse Oximetry (%) 92 L 06/29/18 21:00 Constitutional: Yes: Calm, Thin, Other (lethargic) Cardiovascular: Yes: Regular Rate and Rhythm, S1, S2 Respiratory: Yes: Diminished Gastrointestinal: Yes: Normal Bowel Sounds, Soft Edema: No Labs: CBC, BMP 06/29/18 05:15 06/29/18 05:15 INR, PTT INR 1.28 (0.83-1.09) H 06/23/18 19:00 Problem List - Problems (1) DIXON (acute kidney injury) Assessment/Plan: cr slightly better improving renal on board hypokalemia -repleted Code(s): N17.9 - ACUTE KIDNEY FAILURE, UNSPECIFIED (2) Hypernatremia Assessment/Plan: free water monitor sodium poor prognosis Code(s): E87.0 - HYPEROSMOLALITY AND HYPERNATREMIA (3) Sepsis Assessment/Plan: levophed to keep MAP > 65 abx- bibasilar PNA and uti zosyn gi dvt ppx ng tube for feeds - nepro Microbiology 06/23/18 17:55 Urine - Urine - Catheterized Urine Culture - Final Klebsiella Pneumoniae morphine drip Code(s): A41.9 - SEPSIS, UNSPECIFIED ORGANISM Qualifiers: Sepsis type: sepsis due to unspecified organism Qualified Code(s): A41.9 - Sepsis, unspecified organism (4) Elevated troponin Assessment/Plan: secondary to demand ischemia and hypotension started on aspirin echo done Code(s): R74.8 - ABNORMAL LEVELS OF OTHER SERUM ENZYMES
[2018-06-30] MEDS: POLYETHYLENE GLYCOL 3350 119 GM BTL PO SCH (12:05)
[2018-06-30 13:37] LABS: ANION GAP 7 MMOL/L (8-16); BLOOD UREA NITROGEN 53 mg/dL (7-18); CALCIUM 7.8 mg/dL (8.5-10.1); CHLORIDE 120 mmol/L (98-107); CO2 24 mmol/L (21-32); CREATININE 1.6 mg/dL (0.55-1.3); GLUCOSE,RANDOM 225 mg/dL (74-106); POTASSIUM 4.9 mmol/L (3.5-5.1); SODIUM 151 mmol/L (136-145)
[2018-06-30] MEDS: MORPHINE SULFATE 2 MG/ML VIAL IVPUSH PRN (14:15)
--- NOTE | 2018-06-30 14:24 | PN ---
Progress Note, Physician History of Present Illness: Pt seen and examined at bedside. She remains in the ICU. Pt remains lethargic. Sodium is slowly improving. - Current Medication List Current Medications: Active Medications Aspirin (Asa -) [address] DAILY [facility] Last Admin: 06/30/18 10:20 Dose: 150 mg Benztropine Mesylate (Cogentin -) 2 mg PO BID [facility] Last Admin: 06/30/18 10:05 Dose: 2 mg Bisacodyl (Dulcolax Suppository -) [address] PRN PRN PRN Reason: CONSTIPATION Chlorhexidine Gluconate (Hibiclens For Decolonization -) 1 applic TP HS [facility] Last Admin: 06/29/18 22:09 Dose: 1 applic Clonazepam (Klonopin -) 0.5 mg PO BID [facility] Last Admin: 06/30/18 10:20 Dose: 0.5 mg Heparin Sodium (Porcine) (Heparin -) 5,000 unit SQ BID [facility] Last Admin: 06/30/18 10:20 Dose: 5,000 unit Norepinephrine Bitartrate 4, (000 mcg/ Dextrose) 500 mls @ 37.5 mls/hr IV TITR [facility]; Protocol Last Titration: 06/30/18 07:00 Dose: 2 mcg/min, 15 mls/hr Famotidine/Sodium Chloride (Pepcid 20 Mg Premixed Ivpb -) 20 mg in 50 mls @ 100 mls/hr IVPB BID [facility] Last Admin: 06/30/18 10:20 Dose: 100 mls/hr Piperacillin Sod/Tazobactam (Sod 2.25 gm/ Dextrose) 50 mls @ 100 mls/hr IVPB Q8H-IV [facility]; Protocol Last Admin: 06/30/18 10:21 Dose: 100 mls/hr Morphine Sulfate (Morphine Sulfate) 2 mg IVPUSH Q2H PRN PRN Reason: respiratory rate >20 or agonal Last Admin: 06/29/18 22:09 Dose: 2 mg Polyethylene Glycol (Miralax (For Daily Use) -) 17 gm PO DAILY [facility] Last Admin: 06/30/18 12:05 Dose: Not Given Ranolazine (Ranexa -) 500 mg PO BID [facility] Last Admin: 06/30/18 10:21 Dose: 500 mg Tramadol HCl (Ultram -) 100 mg PO TID [facility] Last Admin: 06/30/18 06:06 Dose: 100 mg - Objective Vital Signs: Vital Signs Temperature 98.5 F 06/29/18 18:00 Pulse Rate 78 06/30/18 07:00 Respiratory Rate 13 06/30/18 06:00 Blood Pressure 86/49 L 06/30/18 07:00 O2 Sat by Pulse Oximetry (%) 92 L 06/29/18 21:00 Constitutional: Yes: Mild Distress Eyes: Yes: Conjunctiva Clear Cardiovascular: Yes: S1, S2 Respiratory: Yes: On Venti-Mask Gastrointestinal: Yes: Soft Genitourinary: Yes: R[place] Present Musculoskeletal: Yes: Muscle Weakness Edema: Yes Edema: LLE: 1+, RLE: 1+ Neurological: Yes: Lethargy Labs: CBC, BMP 06/29/18 05:15 06/30/18 12:25 INR, PTT INR 1.28 (0.83-1.09) H 06/23/18 19:00 - ....Imaging Chest X-ray: Report Reviewed Problem List - Problems (1) DIXON (acute kidney injury) Code(s): N17.9 - ACUTE KIDNEY FAILURE, UNSPECIFIED (2) Coronary artery disease Code(s): I25.10 - ATHSCL HEART DISEASE OF [place] CORONARY ARTERY W/O ANG PCTRS (3) Elevated troponin Code(s): R74.8 - ABNORMAL LEVELS OF OTHER SERUM ENZYMES (4) Hypernatremia Code(s): E87.0 - HYPEROSMOLALITY AND HYPERNATREMIA (5) Parkinson disease Code(s): G20 - PARKINSON'S DISEASE Assessment/Plan Current Medications Generic Name Dose Route Start Last Admin Trade Name Freq PRN Reason Stop Dose Admin Aspirin 150 mg 06/24/18 10:00 06/30/18 10:20 Asa - CT 150 mg DAILY [facility] Administration Benztropine Mesylate 2 mg 06/23/18 22:00 06/30/18 10:05 Cogentin - PO 2 mg BID [facility] Administration Bisacodyl 10 mg 06/25/18 10:06 Dulcolax Suppository - CT PRN PRN CONSTIPATION Chlorhexidine Gluconate 1 applic 06/23/18 22:00 06/29/18 22:09 Hibiclens For Decolonization - TP 1 applic HS [facility] Administration Clonazepam 0.5 mg 06/28/18 22:00 06/30/18 10:20 Klonopin - PO 0.5 mg BID [facility] Administration Heparin Sodium (Porcine) 5,000 unit 06/23/18 22:00 06/30/18 10:20 Heparin - SQ 5,000 unit BID [facility] Administration Norepinephrine Bitartrate 4, 500 mls @ 37.5 mls/hr 06/23/18 21:15 06/30/18 07 :00 000 mcg/ Dextrose IV 2 mcg/min TITR [facility] 15 mls/hr Titration Protocol 5 MCG/MIN Famotidine/Sodium Chloride 20 mg in 50 mls @ 100 mls/hr 06/24/18 11:45 10:20 Pepcid 20 Mg Premixed Ivpb - IVPB 100 mls/hr BID [facility] Administration Piperacillin Sod/Tazobactam 50 mls @ 100 mls/hr 06/25/18 11:45 06/30/18 10:21 Sod 2.25 gm/ Dextrose IVPB 100 mls/hr Q8H-IV [facility] Administration Protocol Morphine Sulfate 2 mg 06/29/18 04:47 06/29/18 22:09 Morphine Sulfate IVPUSH 2 mg Q2H PRN Administration respiratory rate >20 or agonal Polyethylene Glycol 17 gm 06/25/18 10:15 06/30/18 12:05 Miralax (For Daily Use) - PO Not Given DAILY [facility] Ranolazine 500 mg 06/23/18 22:00 06/30/18 10:21 Ranexa - PO 500 mg BID [facility] Administration Tramadol HCl 100 mg 06/23/18 22:00 06/30/18 06:06 Ultram - PO 100 mg TID [facility] Administration Impression 1. DIXON 2. hypernatremia 3. sepsis 4. PNA 5. r/o UTI 6. lactic acidosis 7. parkinsons 8. positive troponins 9. HTN 10. HLD 11. mild hydro 12. renal cyst Plan - cont with free water - monitor sodium - monitor renal function and urine output - will increase free water with feeds further - monitor lytes - cont ICU care - discussed GOC with family - consider urology eval for sono findings - likely atn from shock and sepsis - will follow Dr Gonsalez
[2018-06-30] MEDS ORDERED: NOREPINEPHRINE BITARTRATE 4 MG/4 ML ML IV ONE (20:49)
[2018-06-30] MEDS: CHLORHEXIDINE GLUCONATE 4% CLEANSER FOR DECOLONIZATION TP SCH (21:07)
[2018-06-30] MEDS: NOREPINEPHRINE BITARTRATE 4,000 MCG in DEXTROSE 5%-WATER - 496 ML IV SCH (22:00)
[2018-07-01] MEDS ORDERED: DEXTROSE 5%-WATER - 50 ML IVPB ONE ×4 (02:48→21:16)
[2018-07-01] MEDS ORDERED: PIPERACILLIN/TAZOBACTAM 2.25 GM VIAL IVPB ONE ×4 (02:48→21:16)
[2018-07-01] MEDS: PIPERACILLIN/TAZOB 2.25 GM 2.25 GM in DEXTROSE 5%-WATER - 50 ML IVPB SCH ×4 (02:56→21:57)
[2018-07-01] MEDS: ACETAMINOPHEN 1000 MG/100 ML VIAL (NON FORMULARY) IVPB PRN ×2 (05:00→15:08)
--- NOTE | 2018-07-01 06:23 | PN ---
Physical Exam: SUBJECTIVE: Patient seen and examined. Aphasic not interactive OBJECTIVE: Vital Signs Period Temp Pulse Resp BP Sys/Younger Pulse Ox Last 24 Hr 99.8 F-100.7 F 66-86 13-19 77-98/44-61 92-92 GENERAL: Somnolent, withdraws to tactile stimuli does not open eyes (per son pt non-verbal at baseline but generally vocalizes) HEAD: No signs of trauma, normocephalic, atraumatic EYES: PERRLA, EOMI, sclera anicteric, conjunctiva clear ENT: NGT in place; Hearing grossly normal, nares patent, oropharynx clear without exudates NECK: R IJ in place, supple LUNGS: diffuse decreased breath sounds and poor inspiratory effort, protecting airway, bradypnea HEART: Regular rate and rhythm, normal S1 and S2, no murmurs appreciated, peripheral pulses normal and equal bilaterally ABDOMEN: Soft, non-distended; normoactive bowel sounds. EXTREMITIES : no edema. No clubbing or cyanosis NEUROLOGICAL: Withdraws to painful stimuli, not alert, unable to assess orientation SKIN: Warm, Dry Active Medications Generic Name Dose Route Start Last Admin Trade Name Freq PRN Reason Stop Dose Admin Acetaminophen 750 mg 07/01/18 05:17 07/01/18 05:00 Ofirmev Injection - IVPB 750 mg Q6H PRN Administration FEVER Aspirin 150 mg 06/24/18 10:00 06/30/18 10:20 Asa - [place] 150 mg DAILY [facility] Administration Benztropine Mesylate 2 mg 06/23/18 22:00 06/30/18 21:06 Cogentin - PO 2 mg BID [facility] Administration Bisacodyl 10 mg 06/25/18 10:06 Dulcolax Suppository - [place] PRN PRN CONSTIPATION Chlorhexidine Gluconate 1 applic 06/23/18 22:00 06/30/18 21:07 Hibiclens For Decolonization - TP 1 applic HS [facility] Administration Clonazepam 0.5 mg 06/28/18 22:00 06/30/18 21:06 Klonopin - PO 0.5 mg BID [facility] Administration Heparin Sodium (Porcine) 5,000 unit 06/23/18 22:00 06/30/18 21:06 Heparin - SQ 5,000 unit BID [facility] Administration Norepinephrine Bitartrate 4, 500 mls @ 37.5 mls/hr 06/23/18 21:15 06/30/18 22 :00 000 mcg/ Dextrose IV Not Given TITR [facility] Protocol 5 MCG/MIN Famotidine/Sodium Chloride 20 mg in 50 mls @ 100 mls/hr 06/24/18 11:45 21:07 Pepcid 20 Mg Premixed Ivpb - IVPB 100 mls/hr BID [facility] Administration Piperacillin Sod/Tazobactam 50 mls @ 100 mls/hr 06/25/18 11:45 07/01/18 02:56 Sod 2.25 gm/ Dextrose IVPB 100 mls/hr Q8H-IV [facility] Administration Protocol Morphine Sulfate 2 mg 06/29/18 04:47 06/30/18 14:15 Morphine Sulfate IVPUSH 2 mg Q2H PRN Administration respiratory rate >20 or agonal Polyethylene Glycol 17 gm 06/25/18 10:15 06/30/18 12:05 Miralax (For Daily Use) - PO Not Given DAILY [facility] Ranolazine 500 mg 06/23/18 22:00 06/30/18 21:06 Ranexa - PO 500 mg BID [facility] Administration ASSESSMENT/PLAN: The patient is a 77F w/ a hx of aphasia and HTN who presented with with septic shock secondary to pneumonia. Neuro Anxiety -Klonopin BID Acute Pain -Tramadol PRN through NG tube CV HTN hx Hypotension -currently on levophed due to septic shock-hold antihypertensives -Pressors may be maintained but will not increase above 2mcg -Will continue to resuscitate with IVF A-fib -continue Aspirin -Currently rate controlled Pulm B/l PNA -Cont. Zosyn GI Protonix for GI PPx Nutrition -TF w/ free water flushes continued now that pressor usage has decreased -Reordered per most recent Data Collector recommendations -On bowel regimen saldaña with decent urine output and some sediment -Will continue to monitory Uop and Cr Electrolytes Hypernatremia -Improving -IVF per nephrology (1/2NS) Hypokalemia -Repleted HEME DVT Ppx SQ hep ID continue Abx per ID -on Zosyn -Patient afebrile today LTD R IJ (06/23/2018) Saldaña (06/23/2018) Dispo: Patient on levophed. Will continue to require ICU care. Consult placed for palliative care to assist w/ goals of care discussion DNR/DNI Visit type - Emergency Visit Emergency Visit: Yes ED Registration Date: 06/23/18 Care time: The patient presented to the Emergency Department on the above date and was hospitalized for further evaluation of their emergent condition. - New Patient This patient is new to me today: No - Critical Care Critical Care patient: Yes Total Critical Care Time (in minutes): 35 Critical Care Statement: The care of this patient involved high complexity decision making to prevent further life threatening deterioration of the patient 's condition and/or to evaluate & treat vital organ system(s) failure or risk of failure.
--- NOTE | 2018-07-01 08:44 | PN ---
Progress Note (short form) - Note Progress Note: lethargic NRB facemask still on levopohed Vital Signs Period Temp Pulse Resp BP Sys/Younger Pulse Ox Last 24 Hr 99.8 F-100.7 F 66-86 13-22 77-124/44-73 92-96 cor-rrr lungs decreased bs at bases abd soft,nt ext no edema CBC, BMP 06/29/18 05:15 06/30/18 12:25 Microbiology 06/23/18 22:31 Blood - Peripheral Venous Blood Culture - Final NO GROWTH AFTER 5 DAYS INCUBATION 06/23/18 19:00 Blood - Peripheral Venous Blood Culture - Final NO GROWTH AFTER 5 DAYS INCUBATION 06/23/18 17:55 Urine - Urine - Catheterized Urine Culture - Final Klebsiella Pneumoniae 06/24/18 18:20 Urine For Antigen Detection Legionella Antigen - Final 06/24/18 18:20 Urine For Antigen Detection Streptococcus pneumoniae Antigen (M - Final Current Medications Acetaminophen (Ofirmev Injection -) 750 mg IVPB Q6H PRN PRN Reason: FEVER Last Admin: 07/01/18 05:00 Dose: 750 mg Aspirin (Asa -) 150 mg [place] DAILY [facility] Last Admin: 07/01/18 09:49 Dose: 150 mg Benztropine Mesylate (Cogentin -) 2 mg PO BID [facility] Last Admin: 07/01/18 09:49 Dose: 2 mg Bisacodyl (Dulcolax Suppository -) 10 mg [place] PRN PRN PRN Reason: CONSTIPATION Chlorhexidine Gluconate (Hibiclens For Decolonization -) 1 applic TP HS [facility] Last Admin: 06/30/18 21:07 Dose: 1 applic Clonazepam (Klonopin -) 0.5 mg PO BID [facility] Last Admin: 07/01/18 09:49 Dose: 0.5 mg Heparin Sodium (Porcine) (Heparin -) 5,000 unit SQ BID [facility] Last Admin: 07/01/18 09:49 Dose: 5,000 unit Norepinephrine Bitartrate 4, (000 mcg/ Dextrose) 500 mls @ 37.5 mls/hr IV TITR [facility]; Protocol Last Titration: 07/01/18 10:00 Dose: 4 mcg/min, 30 mls/hr Famotidine/Sodium Chloride (Pepcid 20 Mg Premixed Ivpb -) 20 mg in 50 mls @ 100 mls/hr IVPB BID [facility] Last Admin: 07/01/18 09:50 Dose: 100 mls/hr Piperacillin Sod/Tazobactam (Sod 2.25 gm/ Dextrose) 50 mls @ 100 mls/hr IVPB Q6H [facility]; Protocol Morphine Sulfate (Morphine Sulfate) 2 mg IVPUSH Q2H PRN PRN Reason: respiratory rate >20 or agonal Last Admin: 07/01/18 10:15 Dose: 2 mg Polyethylene Glycol (Miralax (For Daily Use) -) 17 gm PO DAILY [facility] Last Admin: 07/01/18 09:49 Dose: 17 gm Ranolazine (Ranexa -) 500 mg PO BID [facility] Last Admin: 07/01/18 09:50 Dose: 500 mg a/p sepsis pneumonia klebsiella UTI renal failure improved parkinsons disease continue zosyn remains on pressors repeat cxray overall prognosis is poor
[2018-07-01] MEDS: ASPIRIN 300 MG SUPP.RECT PR SCH (09:49)
[2018-07-01] MEDS: BENZTROPINE MESYLATE 2 MG TABLET PO SCH ×2 (09:49→21:59)
[2018-07-01] MEDS: HEPARIN NA (PORCINE) 5,000 UNITS/ML 1ML VIAL SQ SCH ×2 (09:49→22:00)
[2018-07-01] MEDS: clonazePAM 0.5 MG TABLET PO SCH ×2 (09:49→21:59)
[2018-07-01] MEDS: POLYETHYLENE GLYCOL 3350 119 GM BTL PO SCH (09:49)
[2018-07-01] MEDS: RANOLAZINE E.R. 500 MG TABLET (FP) PO SCH ×2 (09:50→21:59)
[2018-07-01] MEDS: FAMOTIDINE 20 MG/50 ML IVPB 20 MG/50 ML MG IVPB SCH ×2 (09:50→21:59)
[2018-07-01] MEDS: MORPHINE SULFATE 2 MG/ML VIAL IVPUSH PRN (10:15)
--- NOTE | 2018-07-01 10:25 | PN ---
Teaching Attending Note Name of Resident: Talon Nicholas ATTENDING PHYSICIAN STATEMENT I saw and evaluated the patient. I reviewed the resident's note and discussed the case with the resident. I agree with the resident's findings and plan as documented. SUBJECTIVE: Pt seen and examined in the ICU. Remains lethargic on levophed gtt. On NRB. OBJECTIVE: Vital Signs Period Temp Pulse Resp BP Sys/Younger Pulse Ox Last 24 Hr 99.8 F-100.7 F 66-86 13-22 77-124/44-73 92-96 Intake & Output 06/28/18 06/29/18 06/30/18 07/01/18 23:59 23:59 23:59 23:59 Intake Total 2036.5 1555.6 1047.1 2280 Output Total 1300 900 700 250 Balance 736.5 655.6 347.1 2030 Gen: lethargic, tachypneic Heart: RRR Lung: scattered rhonchi Abd: soft, nontender Ext: + edema CBC, BMP 06/29/18 05:15 06/30/18 12:25 Active Medications Acetaminophen (Ofirmev Injection -) 750 mg IVPB Q6H PRN PRN Reason: FEVER Last Admin: 07/01/18 05:00 Dose: 750 mg Aspirin (Asa -) 150 mg [place] DAILY [facility] Last Admin: 07/01/18 09:49 Dose: 150 mg Benztropine Mesylate (Cogentin -) 2 mg PO BID [facility] Last Admin: 07/01/18 09:49 Dose: 2 mg Bisacodyl (Dulcolax Suppository -) 10 mg [place] PRN PRN PRN Reason: CONSTIPATION Chlorhexidine Gluconate (Hibiclens For Decolonization -) 1 applic TP HS [facility]S [facility]CLUDE 234 BEDS AT [facility] Last Admin: 06/30/18 21:07 Dose: 1 applic Clonazepam (Klonopin -) 0.5 mg PO BID [facility] Last Admin: 07/01/18 09:49 Dose: 0.5 mg Heparin Sodium (Porcine) (Heparin -) 5,000 unit SQ BID [facility] Last Admin: 07/01/18 09:49 Dose: 5,000 unit Norepinephrine Bitartrate 4, (000 mcg/ Dextrose) 500 mls @ 37.5 mls/hr IV TITR [facility]; Protocol Last Titration: 07/01/18 10:00 Dose: 4 mcg/min, 30 mls/hr Famotidine/Sodium Chloride (Pepcid 20 Mg Premixed Ivpb -) 20 mg in 50 mls @ 100 mls/hr IVPB BID [facility] 234 BEDS AT THE [facility] Last Admin: 07/01/18 09:50 Dose: 100 mls/hr Piperacillin Sod/Tazobactam (Sod 2.25 gm/ Dextrose) 50 mls @ 100 mls/hr IVPB Q8H-IV [facility]; Protocol Last Admin: 07/01/18 09:50 Dose: 100 mls/hr Morphine Sulfate (Morphine Sulfate) 2 mg IVPUSH Q2H PRN PRN Reason: respiratory rate >20 or agonal Last Admin: 07/01/18 10:15 Dose: 2 mg Polyethylene Glycol (Miralax (For Daily Use) -) 17 gm PO DAILY [facility]CLUDE 234 BEDS AT THE [facility] Last Admin: 07/01/18 09:49 Dose: 17 gm Ranolazine (Ranexa -) 500 mg PO BID [facility]CLUDE 234 BEDS AT THE [facility] Last Admin: 07/01/18 09:50 Dose: 500 mg ASSESSMENT AND PLAN: Pneumonia likely Aspiration UTI Septic Shock Acute Kidney Injury Hypernatremia Lactic Acidosis Elevated LFTs likely Ischemic Injury +Troponins likely [place]and Ischemia Thrombocytopenia HTN Hyperlipidemia Parkinsons Disease - continue antibiotics - taper pressors to maintain MAP >65 - trend LFTs - monitor urine output, creatinine - aspiration precautions - O2 to keep SPo2 >90% - DVT/GI prophylaxis - continue ICU monitoring - pt DNR/DNI, recommend morphine as needed for respiratory effort critical care time spent in reviewing chart, evaluating patient and formulating plan 35 min
[2018-07-01 12:04] LABS: ANION GAP 7 MMOL/L (8-16); BLOOD UREA NITROGEN 57 mg/dL (7-18); CALCIUM 7.5 mg/dL (8.5-10.1); CHLORIDE 117 mmol/L (98-107); CO2 25 mmol/L (21-32); CREATININE 1.7 mg/dL (0.55-1.3); GLUCOSE,RANDOM 164 mg/dL (74-106); POTASSIUM 3.8 mmol/L (3.5-5.1); SODIUM 149 mmol/L (136-145)
--- NOTE | 2018-07-01 12:58 | PN ---
Progress Note, Physician Chief Complaint: Pt on ventimask; unresponsive. History of Present Illness: 77yo F with history of HTN, dementia, Advanced Parkinson's dz, CAD with remote hx PCI LAD, previous UTIs and PNA presenting from [facility] with less responsiveness. Patient is nonverbal at baseline but has becoming progressively less responsive over the past three or four days. [facility] reports that the patient has had abnormal vitals with a fever, elevated RR, and elevated BP. Patient brought in by EMS. She is unable to provide any history. Upon admission to the ED, she was found to have a fever of 104.7, BP of 80/50, R 34. Labs notable for WBC of 29.5, BUN/Cr 113/5.5, Na 164, AST/ALT 217/109, UA +WBC, and CXR with possible infiltrates. She was given a dose of Vancomycin and Zosyn, IV apap, 3L NS. Temperature went down to 101.3, spo2 96% on non- rebreather. Patient has been admitted to ICU, patient is DNI/DNR. Patient's son wants goal of care to be comfort and not try any "heroic" measures. She is on pressors in the ICU, in renal failure and with elevated TnI. - Current Medication List Current Medications: Active Medications Acetaminophen (Ofirmev Injection -) 750 mg IVPB Q6H PRN PRN Reason: FEVER Last Admin: 07/01/18 05:00 Dose: 750 mg Aspirin (Asa -) 150 mg [place] DAILY [facility] Last Admin: 07/01/18 09:49 Dose: 150 mg Benztropine Mesylate (Cogentin -) 2 mg PO BID [facility] Last Admin: 07/01/18 09:49 Dose: 2 mg Bisacodyl (Dulcolax Suppository -) 10 mg [place] PRN PRN PRN Reason: CONSTIPATION Chlorhexidine Gluconate (Hibiclens For Decolonization -) 1 applic TP HS [facility] Last Admin: 06/30/18 21:07 Dose: 1 applic Clonazepam (Klonopin -) 0.5 mg PO BID [facility] Last Admin: 07/01/18 09:49 Dose: 0.5 mg Heparin Sodium (Porcine) (Heparin -) 5,000 unit SQ BID [facility] Last Admin: 07/01/18 09:49 Dose: 5,000 unit Norepinephrine Bitartrate 4, (000 mcg/ Dextrose) 500 mls @ 37.5 mls/hr IV TITR [facility]; Protocol Last Titration: 07/01/18 10:00 Dose: 4 mcg/min, 30 mls/hr Famotidine/Sodium Chloride (Pepcid 20 Mg Premixed Ivpb -) 20 mg in 50 mls @ 100 mls/hr IVPB BID [facility] Last Admin: 07/01/18 09:50 Dose: 100 mls/hr Piperacillin Sod/Tazobactam (Sod 2.25 gm/ Dextrose) 50 mls @ 100 mls/hr IVPB Q6H-IV [facility]; Protocol Morphine Sulfate (Morphine Sulfate) 2 mg IVPUSH Q2H PRN PRN Reason: respiratory rate >20 or agonal Last Admin: 07/01/18 10:15 Dose: 2 mg Polyethylene Glycol (Miralax (For Daily Use) -) 17 gm PO DAILY [facility] Last Admin: 07/01/18 09:49 Dose: 17 gm Ranolazine (Ranexa -) 500 mg PO BID [facility] Last Admin: 07/01/18 09:50 Dose: 500 mg - Objective Vital Signs: Vital Signs Temperature 100.5 F H 07/01/18 10:00 Pulse Rate 71 07/01/18 12:00 Respiratory Rate 16 07/01/18 12:00 Blood Pressure 88/43 L 07/01/18 12:00 O2 Sat by Pulse Oximetry (%) 90 L 07/01/18 12:04 Constitutional: Yes: Thin, Other Eyes: Yes: Other (fixed pupils) HENT: Yes: Nasal Congestion Neck: Yes: Decreased ROM Cardiovascular: Yes: S1, S2 (split) Respiratory: Yes: Diminished, Rhonchi Gastrointestinal: Yes: Soft Genitourinary: No: Anuria Musculoskeletal: Yes: Muscle Weakness Extremities: Yes: Cool Edema: Yes Edema: LLE: Trace, RLE: Trace Peripheral Pulses WNL: Yes Integumentary: Yes: Venous Stasis Changes, Other (mottled LE skin) Labs: CBC, BMP 06/29/18 05:15 07/01/18 11:30 INR, PTT INR 1.28 (0.83-1.09) H 06/23/18 19:00 Problem List - Problems (1) Septic shock Assessment/Plan: Remains unresponsive. On antibiotics per ID. Still on norepinephrine, fluids. Hyperdynamic LVEF on ECHO. F/u BUN/Cr, electrolytes, Is and Os. Code(s): A41.9 - SEPSIS, UNSPECIFIED ORGANISM; R65.21 - SEVERE SEPSIS WITH SEPTIC SHOCK (2) Abnormal LFTs Code(s): R94.5 - ABNORMAL RESULTS OF LIVER FUNCTION STUDIES (3) Coronary artery disease Assessment/Plan: Hx PCI. Elevated TNI. On ASA, Ranexa. Code(s): I25.10 - ATHSCL HEART DISEASE OF [place] CORONARY ARTERY W/O ANG PCTRS (4) DNR (do not resuscitate) Code(s): Z66 - DO NOT RESUSCITATE (5) Elevated troponin Assessment/Plan: Demand ischemia from hypotension due to septic shock Code(s): R74.8 - ABNORMAL LEVELS OF OTHER SERUM ENZYMES (6) Hypernatremia Code(s): E87.0 - HYPEROSMOLALITY AND HYPERNATREMIA (7) Parkinson disease Code(s): G20 - PARKINSON'S DISEASE
--- NOTE | 2018-07-01 14:21 | PN ---
Progress Note, Physician Chief Complaint: CHART AND NOTES REVIEWED ASLEEP IN ICU - Current Medication List Current Medications: Active Medications Acetaminophen (Ofirmev Injection -) 750 mg IVPB Q6H PRN PRN Reason: FEVER Last Admin: 07/01/18 05:00 Dose: 750 mg Aspirin (Asa -) 150 mg [place] DAILY [facility] Last Admin: 07/01/18 09:49 Dose: 150 mg Benztropine Mesylate (Cogentin -) 2 mg PO BID [facility] Last Admin: 07/01/18 09:49 Dose: 2 mg Bisacodyl (Dulcolax Suppository -) 10 mg [place] PRN PRN PRN Reason: CONSTIPATION Chlorhexidine Gluconate (Hibiclens For Decolonization -) 1 applic TP HS [facility] Last Admin: 06/30/18 21:07 Dose: 1 applic Clonazepam (Klonopin -) 0.5 mg PO BID [facility] Last Admin: 07/01/18 09:49 Dose: 0.5 mg Heparin Sodium (Porcine) (Heparin -) 5,000 unit SQ BID [facility] Last Admin: 07/01/18 09:49 Dose: 5,000 unit Norepinephrine Bitartrate 4, (000 mcg/ Dextrose) 500 mls @ 37.5 mls/hr IV TITR [facility]; Protocol Last Titration: 07/01/18 10:00 Dose: 4 mcg/min, 30 mls/hr Famotidine/Sodium Chloride (Pepcid 20 Mg Premixed Ivpb -) 20 mg in 50 mls @ 100 mls/hr IVPB BID [facility] Last Admin: 07/01/18 09:50 Dose: 100 mls/hr Piperacillin Sod/Tazobactam (Sod 2.25 gm/ Dextrose) 50 mls @ 100 mls/hr IVPB Q6H-IV [facility]; Protocol Morphine Sulfate (Morphine Sulfate) 2 mg IVPUSH Q2H PRN PRN Reason: respiratory rate >20 or agonal Last Admin: 07/01/18 10:15 Dose: 2 mg Polyethylene Glycol (Miralax (For Daily Use) -) 17 gm PO DAILY [facility] Last Admin: 07/01/18 09:49 Dose: 17 gm Ranolazine (Ranexa -) 500 mg PO BID [facility] Last Admin: 07/01/18 09:50 Dose: 500 mg - Objective Vital Signs: Vital Signs Temperature 100.5 F H 07/01/18 10:00 Pulse Rate 71 07/01/18 12:00 Respiratory Rate 16 07/01/18 12:00 Blood Pressure 88/43 L 07/01/18 12:00 O2 Sat by Pulse Oximetry (%) 90 L 07/01/18 12:04 Constitutional: Yes: Moderate Distress Eyes: Yes: Other Cardiovascular: Yes: Regular Rate and Rhythm Respiratory: Yes: On Nasal O2 Gastrointestinal: Yes: Soft Genitourinary: Yes: Ramey Present Musculoskeletal: Yes: Muscle Weakness Labs: CBC, BMP 06/29/18 05:15 07/01/18 11:30 INR, PTT INR 1.28 (0.83-1.09) H 06/23/18 19:00 Problem List - Problems (1) Aspiration pneumonia Code(s): J69.0 - PNEUMONITIS DUE TO INHALATION OF FOOD AND VOMIT (2) DIXON (acute kidney injury) Code(s): N17.9 - ACUTE KIDNEY FAILURE, UNSPECIFIED (3) Abnormal LFTs Code(s): R94.5 - ABNORMAL RESULTS OF LIVER FUNCTION STUDIES (4) Coronary artery disease Code(s): I25.10 - ATHSCL HEART DISEASE OF [place] CORONARY ARTERY W/O ANG PCTRS (5) DNR (do not resuscitate) Code(s): Z66 - DO NOT RESUSCITATE (6) Elevated troponin Code(s): R74.8 - ABNORMAL LEVELS OF OTHER SERUM ENZYMES (7) Hypernatremia Code(s): E87.0 - HYPEROSMOLALITY AND HYPERNATREMIA (8) Parkinson disease Code(s): G20 - PARKINSON'S DISEASE (9) Sepsis Code(s): A41.9 - SEPSIS, UNSPECIFIED ORGANISM Qualifiers: Sepsis type: sepsis due to unspecified organism Qualified Code(s): A41.9 - Sepsis, unspecified organism Assessment/Plan IV ABX RESP SUPPORT PATIENT IS DNR/DNI PRESSURE SUPPORT GOALS OF CARE/ADVANCED DIRECTIVES NEEDED PALLIATIVE CARE F/U
[2018-07-01] MEDS ORDERED: NOREPINEPHRINE BITARTRATE 4 MG/4 ML ML IV ONE (15:04)
--- NOTE | 2018-07-01 15:23 | PN ---
Progress Note, Physician History of Present Illness: Pt seen and examined at bedside. She remains in the ICU. Pt remains lethargic. She is tolerating feeds. - Current Medication List Current Medications: Active Medications Acetaminophen (Ofirmev Injection -) 750 mg IVPB Q6H PRN PRN Reason: FEVER Last Admin: 07/01/18 15:08 Dose: 750 mg Aspirin (Asa -) 150 mg [place] DAILY [facility] Last Admin: 07/01/18 09:49 Dose: 150 mg Benztropine Mesylate (Cogentin -) 2 mg PO BID [facility] Last Admin: 07/01/18 09:49 Dose: 2 mg Bisacodyl (Dulcolax Suppository -) 10 mg [place] PRN PRN PRN Reason: CONSTIPATION Chlorhexidine Gluconate (Hibiclens For Decolonization -) 1 applic TP HS [facility] Last Admin: 06/30/18 21:07 Dose: 1 applic Clonazepam (Klonopin -) 0.5 mg PO BID [facility] Last Admin: 07/01/18 09:49 Dose: 0.5 mg Heparin Sodium (Porcine) (Heparin -) 5,000 unit SQ BID [facility] Last Admin: 07/01/18 09:49 Dose: 5,000 unit Norepinephrine Bitartrate 4, (000 mcg/ Dextrose) 500 mls @ 37.5 mls/hr IV TITR [facility]; Protocol Last Titration: 07/01/18 10:00 Dose: 4 mcg/min, 30 mls/hr Famotidine/Sodium Chloride (Pepcid 20 Mg Premixed Ivpb -) 20 mg in 50 mls @ 100 mls/hr IVPB BID [facility] Last Admin: 07/01/18 09:50 Dose: 100 mls/hr Piperacillin Sod/Tazobactam (Sod 2.25 gm/ Dextrose) 50 mls @ 100 mls/hr IVPB Q6H-IV [facility]; Protocol Last Admin: 07/01/18 15:13 Dose: 100 mls/hr Morphine Sulfate (Morphine Sulfate) 2 mg IVPUSH Q2H PRN PRN Reason: respiratory rate >20 or agonal Last Admin: 07/01/18 10:15 Dose: 2 mg Polyethylene Glycol (Miralax (For Daily Use) -) 17 gm PO DAILY [facility] Last Admin: 07/01/18 09:49 Dose: 17 gm Ranolazine (Ranexa -) 500 mg PO BID [facility] Last Admin: 07/01/18 09:50 Dose: 500 mg - Objective Vital Signs: Vital Signs Temperature 100.5 F H 07/01/18 10:00 Pulse Rate 71 07/01/18 12:00 Respiratory Rate 16 07/01/18 12:00 Blood Pressure 88/43 L 07/01/18 12:00 O2 Sat by Pulse Oximetry (%) 90 L 07/01/18 12:04 Constitutional: Yes: Calm Eyes: Yes: Conjunctiva Clear HENT: Yes: Atraumatic Neck: Yes: Supple Cardiovascular: Yes: S1, S2 Respiratory: Yes: On Venti-Mask Gastrointestinal: Yes: Soft Genitourinary: Yes: Ramey Present Musculoskeletal: Yes: Muscle Weakness Edema: Yes Edema: LLE: 1+, RLE: 1+ Neurological: Yes: Lethargy Labs: CBC, BMP 06/29/18 05:15 07/01/18 11:30 INR, PTT INR 1.28 (0.83-1.09) H 06/23/18 19:00 Problem List - Problems (1) DIXON (acute kidney injury) Code(s): N17.9 - ACUTE KIDNEY FAILURE, UNSPECIFIED (2) Coronary artery disease Code(s): I25.10 - ATHSCL HEART DISEASE OF [place] CORONARY ARTERY W/O ANG PCTRS (3) Elevated troponin Code(s): R74.8 - ABNORMAL LEVELS OF OTHER SERUM ENZYMES (4) Hypernatremia Code(s): E87.0 - HYPEROSMOLALITY AND HYPERNATREMIA (5) Parkinson disease Code(s): G20 - PARKINSON'S DISEASE Assessment/Plan Current Medications Generic Name Dose Route Start Last Admin Trade Name Freq PRN Reason Stop Dose Admin Acetaminophen 750 mg 07/01/18 05:17 07/01/18 15:08 Ofirmev Injection - IVPB 750 mg Q6H PRN Administration FEVER Aspirin 150 mg 06/24/18 10:00 07/01/18 09:49 Asa - [place] 150 mg DAILY [facility] Administration Benztropine Mesylate 2 mg 06/23/18 22:00 07/01/18 09:49 Cogentin - PO 2 mg BID [facility] Administration Bisacodyl 10 mg 06/25/18 10:06 Dulcolax Suppository - [place] PRN PRN CONSTIPATION Chlorhexidine Gluconate 1 applic 06/23/18 22:00 06/30/18 21:07 Hibiclens For Decolonization - TP 1 applic HS [facility] Administration Clonazepam 0.5 mg 06/28/18 22:00 07/01/18 09:49 Klonopin - PO 0.5 mg BID [facility] Administration Heparin Sodium (Porcine) 5,000 unit 06/23/18 22:00 07/01/18 09:49 Heparin - SQ 5,000 unit BID [facility] Administration Norepinephrine Bitartrate 4, 500 mls @ 37.5 mls/hr 06/23/18 21:15 07/01/18 10 :00 000 mcg/ Dextrose IV 4 mcg/min TITR [facility] 30 mls/hr Titration Protocol 5 MCG/MIN Famotidine/Sodium Chloride 20 mg in 50 mls @ 100 mls/hr 06/24/18 11:45 09:50 Pepcid 20 Mg Premixed Ivpb - IVPB 100 mls/hr BID [facility] Administration Piperacillin Sod/Tazobactam 50 mls @ 100 mls/hr 07/01/18 15:00 07/01/18 15:13 Sod 2.25 gm/ Dextrose IVPB 100 mls/hr Q6H-IV [facility] Administration Protocol Morphine Sulfate 2 mg 06/29/18 04:47 07/01/18 10:15 Morphine Sulfate IVPUSH 2 mg Q2H PRN Administration respiratory rate >20 or agonal Polyethylene Glycol 17 gm 06/25/18 10:15 07/01/18 09:49 Miralax (For Daily Use) - PO 17 gm DAILY [facility] Administration Ranolazine 500 mg 06/23/18 22:00 07/01/18 09:50 Ranexa - PO 500 mg BID [facility] Administration Impression 1. DIXON 2. hypernatremia 3. sepsis 4. PNA 5. r/o UTI 6. lactic acidosis 7. parkinsons 8. positive troponins 9. HTN 10. HLD 11. mild hydro 12. renal cyst Plan - sodium is improving - cont feeds and free water - repeat labs in am - will not add IV fluids as she has poor resp status - monitor lytes - discuss GOC with family - consider urology eval for sono findings - likely atn from shock and sepsis - will follow Dr Gonsalez
[2018-07-01] MEDS: NOREPINEPHRINE BITARTRATE 4,000 MCG in DEXTROSE 5%-WATER - 496 ML IV SCH (19:30)
[2018-07-01] MEDS: CHLORHEXIDINE GLUCONATE 4% CLEANSER FOR DECOLONIZATION TP SCH (21:59)
[2018-07-02] MEDS ORDERED: DEXTROSE 5%-WATER - 50 ML IVPB ONE ×2 (01:54→08:31)
[2018-07-02] MEDS ORDERED: PIPERACILLIN/TAZOBACTAM 2.25 GM VIAL IVPB ONE ×2 (01:54→08:31)
[2018-07-02] MEDS: ACETAMINOPHEN 1000 MG/100 ML VIAL (NON FORMULARY) IVPB PRN (02:00)
[2018-07-02] MEDS: PIPERACILLIN/TAZOB 2.25 GM 2.25 GM in DEXTROSE 5%-WATER - 50 ML IVPB SCH ×2 (02:02→09:36)
[2018-07-02 02:23] VITALS: TEMP 100.6
[2018-07-02 06:15] VITALS: BP 63/39; PULSE 74
[2018-07-02 06:16] LABS: HEMATOCRIT 32.6 % (32.4-45.2); HEMOGLOBIN 9.6 GM/dL (10.7-15.3); MCH 28.9 pg (25.7-33.7); MCHC 29.6 g/dl (32.0-36.0); MEAN CELL VOLUME 97.6 fl (80-96); MEAN PLT VOLUME 11.6 fl (7.5-11.1); PLATELET COUNT 128 K/MM3 (134-434); RBC 3.34 M/mm3 (3.60-5.2); RDW 15.8 % (11.6-15.6)
[2018-07-02 06:29] LABS: ANION GAP 7 MMOL/L (8-16); BLOOD UREA NITROGEN 66 mg/dL (7-18); CALCIUM 7.6 mg/dL (8.5-10.1); CHLORIDE 109 mmol/L (98-107); CO2 27 mmol/L (21-32); CREATININE 2.5 mg/dL (0.55-1.3); GLUCOSE,RANDOM 88 mg/dL (74-106); POTASSIUM 5.3 mmol/L (3.5-5.1); SODIUM 144 mmol/L (136-145)
--- NOTE | 2018-07-02 07:14 | PN ---
Physical Exam: SUBJECTIVE: Patient seen and examined OBJECTIVE: Vital Signs Period Temp Pulse Resp BP Sys/Younger Pulse Ox Last 24 Hr 100.0 F-102.5 F 64-82 11-22 59-124/30-73 84-96 GENERAL: Somnolent, withdraws to tactile stimuli does not open eyes (per son pt non-verbal at baseline but generally vocalizes) HEAD: No signs of trauma, normocephalic, atraumatic EYES: PERRLA, EOMI, sclera anicteric, conjunctiva clear ENT: NGT in place; Hearing grossly normal, nares patent, oropharynx clear without exudates NECK: R IJ in place, supple LUNGS: diffuse decreased breath sounds and poor inspiratory effort, protecting airway, bradypnea HEART: Regular rate and rhythm, normal S1 and S2, no murmurs appreciated, peripheral pulses normal and equal bilaterally ABDOMEN: Soft, non-distended; normoactive bowel sounds. EXTREMITIES : no edema. No clubbing or cyanosis NEUROLOGICAL: Withdraws to painful stimuli, not alert, unable to assess orientation SKIN: Warm, Dry Active Medications Generic Name Dose Route Start Last Admin Trade Name Freq PRN Reason Stop Dose Admin Acetaminophen 750 mg 07/01/18 05:17 07/02/18 02:00 Ofirmev Injection - IVPB 750 mg Q6H PRN Administration FEVER Aspirin 150 mg 06/24/18 10:00 07/01/18 09:49 Asa - [place] 150 mg DAILY [facility] Administration Benztropine Mesylate 2 mg 06/23/18 22:00 07/01/18 21:59 Cogentin - PO Not Given BID [facility] Bisacodyl 10 mg 06/25/18 10:06 Dulcolax Suppository - [place] PRN PRN CONSTIPATION Chlorhexidine Gluconate 1 applic 06/23/18 22:00 07/01/18 21:59 Hibiclens For Decolonization - TP 1 applic HS [facility] Administration Clonazepam 0.5 mg 06/28/18 22:00 07/01/18 21:59 Klonopin - PO Not Given BID [facility] Heparin Sodium (Porcine) 5,000 unit 06/23/18 22:00 07/01/18 22:00 Heparin - SQ 5,000 unit BID [facility] Administration Norepinephrine Bitartrate 4, 500 mls @ 37.5 mls/hr 06/23/18 21:15 07/01/18 19 :30 000 mcg/ Dextrose IV 4 mcg/min TITR [facility] 30 mls/hr Administration Protocol 5 MCG/MIN Famotidine/Sodium Chloride 20 mg in 50 mls @ 100 mls/hr 06/24/18 11:45 21:59 Pepcid 20 Mg Premixed Ivpb - IVPB 100 mls/hr BID [facility] Administration Piperacillin Sod/Tazobactam 50 mls @ 100 mls/hr 07/01/18 15:00 07/02/18 02:02 Sod 2.25 gm/ Dextrose IVPB 100 mls/hr Q6H-IV [facility] Administration Protocol Morphine Sulfate 2 mg 06/29/18 04:47 07/01/18 10:15 Morphine Sulfate IVPUSH 2 mg Q2H PRN Administration respiratory rate >20 or agonal Polyethylene Glycol 17 gm 06/25/18 10:15 07/01/18 09:49 Miralax (For Daily Use) - PO 17 gm DAILY [facility] Administration Ranolazine 500 mg 06/23/18 22:00 07/01/18 21:59 Ranexa - PO Not Given BID [facility] ASSESSMENT/PLAN: The patient is a 77F w/ a hx of aphasia and HTN who presented with with septic shock secondary to pneumonia. Neuro Anxiety -Klonopin BID Acute Pain -Tramadol PRN through NG tube CV HTN hx Hypotension -currently on levophed due to septic shock-hold antihypertensives -Pressors may be maintained but will not increase above 2mcg -Will continue to resuscitate with IVF A-fib -continue Aspirin -Currently rate controlled Pulm B/l PNA -Cont. Zosyn GI Protonix for GI PPx Nutrition -TF w/ free water flushes continued now that pressor usage has decreased -Reordered per most recent [employer] recommendations -On bowel regimen [place] with decent urine output and some sediment -Will continue to monitory Uop and Cr Electrolytes Hypernatremia -Improving -Cont. free water flush Hypokalemia -Repleted HEME DVT Ppx SQ hep ID continue Abx per ID -on Zosyn -Patient afebrile today LTD R IJ (06/23/2018) [place] (06/23/2018) Dispo: Patient on levophed. Will continue to require ICU care. Consult placed for palliative care to assist w/ goals of care discussion DNR/DNI Visit type - Emergency Visit Emergency Visit: Yes ED Registration Date: 06/23/18 Care time: The patient presented to the Emergency Department on the above date and was hospitalized for further evaluation of their emergent condition. - New Patient This patient is new to me today: No - Critical Care Critical Care patient: Yes Total Critical Care Time (in minutes): 30 Critical Care Statement: The care of this patient involved high complexity decision making to prevent further life threatening deterioration of the patient 's condition and/or to evaluate & treat vital organ system(s) failure or risk of failure.
[2018-07-02] MEDS ORDERED: PT OWN MED DRAWER 7, Y5N ONE (08:31)
[2018-07-02] MEDS ORDERED: NOREPINEPHRINE BITARTRATE 4 MG/4 ML ML IV ONE (08:33)
[2018-07-02] MEDS: FAMOTIDINE 20 MG/50 ML IVPB 20 MG/50 ML MG IVPB SCH (09:36)
[2018-07-02] MEDS: HEPARIN NA (PORCINE) 5,000 UNITS/ML 1ML VIAL SQ SCH (09:38)
[2018-07-02] MEDS: POLYETHYLENE GLYCOL 3350 119 GM BTL PO SCH (09:39)
[2018-07-02] MEDS: ASPIRIN 300 MG SUPP.RECT PR SCH (09:39)
[2018-07-02] MEDS: clonazePAM 0.5 MG TABLET PO SCH (09:39)
--- NOTE | 2018-07-02 11:27 | PN ---
Progress Note (short form) - Note Progress Note: Patient DNR/DNI Called by RN due to no electrical activity on media monitor and patient with no visual respirations Son informed earlier this AM that patient is likely going to pass away soon. Patient to come in no pupillary reflex no corneal reflex no visible chest wall rise no heart or lung sounds heard Time of : 1004
--- NOTE | 2018-07-02 11:28 | DS ---
Physical Examination Vital Signs: Vital Signs Temperature 100.6 F H 07/02/18 02:00 Pulse Rate 74 07/02/18 06:00 Respiratory Rate 12 07/02/18 09:00 Blood Pressure 63/39 L 07/02/18 06:00 O2 Sat by Pulse Oximetry (%) 84 L 07/02/18 09:00 Labs: CBC, BMP 07/02/18 05:30 07/02/18 05:30 Discharge Summary Reason For Visit: SEPSIS Current Active Problems DIXON (acute kidney injury) (Acute) Abnormal LFTs (Acute) Aspiration pneumonia (Acute) Coronary artery disease (Acute) DNR (do not resuscitate) (Acute) Elevated troponin (Acute) Hypernatremia (Acute) Parkinson disease (Acute) Sepsis (Acute) Septic shock (Acute) Condition: Guarded - Instructions Referrals: Kennedy Fuller [Primary Care Provider] - - Home Medications Comprehensive Discharge Medication List: Ambulatory Orders Clonazepam [Klonopin] 0.5 mg PO BID 07/24/12 Hydrochlorothiazide [Hctz] 50 mg PO DAILY 07/24/12 Metoprolol Succinate [Toprol XL] 50 mg PO DAILY 07/24/12 Ranolazine [Ranexa] 500 mg PO DAILY 07/24/12 Rosuvastatin Calcium [Crestor] 10 mg PO HS 07/24/12 Benztropine Mesylate [Cogentin] 2 mg PO BID 08/12/13 Tramadol HCl [Tramadol HCl ER] 100 mg PO TID 08/12/13
== END 2018-07-02 13:30 | disposition expired | DRG 871 ==
LOC: JER 15:24 → JERBED 17:16 → JICU 06-24 00:37
PROVIDERS: ADMIT Internal Medicine; ATTEND Family Medicine
PROC: 05HM33Z Insertion of Infusion Device into Right Internal Jugular Vein, Percutaneous Approach (ICD-10-PCS; principal; 2018-06-23)
PROC: B513ZZA Fluoroscopy of Right Jugular Veins, Guidance (ICD-10-PCS; 2018-06-23)
PROC: 0DH67UZ Insertion of Feeding Device into Stomach, Via Natural or Artificial Opening (ICD-10-PCS; 2018-06-25)
PROC: 3E0G76Z Introduction of Nutritional Substance into Upper GI, Via Natural or Artificial Opening (ICD-10-PCS; 2018-06-25)
DX: A41.9 Sepsis, unspecified organism (principal); R65.21 Severe sepsis with septic shock; J69.0 Pneumonitis due to inhalation of food and vomit; E87.0 Hyperosmolality and hypernatremia; R64 Cachexia; N17.9 Acute kidney failure, unspecified; E87.2 Acidosis; I24.8 Other forms of acute ischemic heart disease; R47.01 Aphasia; N39.0 Urinary tract infection, site not specified; Z66 Do not resuscitate; E87.6 Hypokalemia; I10 Essential (primary) hypertension; Z68.20 Body mass index [BMI] 20.0-20.9, adult; G20 Parkinson's disease; I48.91 Unspecified atrial fibrillation; D69.6 Thrombocytopenia, unspecified; B96.1 Klebsiella pneumoniae [K. pneumoniae] as the cause of diseases classified elsewhere; B95.3 Streptococcus pneumoniae as the cause of diseases classified elsewhere; F02.80 Dementia in other diseases classified elsewhere, unspecified severity, without behavioral disturbance, psychotic disturbance, mood disturbance, and anxiety; E78.00 Pure hypercholesterolemia, unspecified; Z87.891 Personal history of nicotine dependence; Z74.01 Bed confinement status; K21.9 Gastro-esophageal reflux disease without esophagitis; F41.9 Anxiety disorder, unspecified; R74.8 Abnormal levels of other serum enzymes; I25.10 Atherosclerotic heart disease of native coronary artery without angina pectoris; Z98.61 Coronary angioplasty status; I95.9 Hypotension, unspecified; E78.5 Hyperlipidemia, unspecified; R94.5 Abnormal results of liver function studies; N28.1 Cyst of kidney, acquired
CPT/HCPCS: 36415; 71045-TC-FY; 71250-TC; 74018-TC-FY; 74176-TC; 76775-TC; 80048; 80053; 81003; 81015; 82436; 82570; 83605; 83735; 84100; 84133; 84300; 84443; 84484; 85025; 85027; 85610; 85730; 87040; 87086; 87186; 87804; 87899; 93005; 93010; 93306-TC; 99285-25; G0480; J0131; J1644; J7030